=== PATIENT | female | born 1995 | race Caucasian/White ===

== ENCOUNTER 2017-07-14 06:26 | Emergency (ER) | payer SELFPAY ==
--- OUTSIDE RECORDS SUMMARY | 2017-07-14 06:28 | XMS REPORT | Clinical Summary ---
:1995 Author Organization [facility] Address [address] [place] [address] Phone Care Team Providers Name Role Phone Unavailable Primary Care Provider Unavailable Allergies Active Allergy Reactions Severity Noted Date Comments Acetaminophen-Calcium Carbonat Swelling High 08/27/2016 Hands Cinnamon Analogues Swelling High 08/27/2016 Throat Apple Cider Vinegar Rash Low 08/27/2016 Apple Current Medications Prescription Sig. Disp. Refills Start Date End Date Status ondansetron (ZOFRAN) 4 Take 1 tablet 30 tablet 1 08/31/2016 09/07/2016 MG tablet (4 mg total) by mouth 2 (two) times daily as needed for Nausea for up to 7 days. Active Problems Problem Noted Date Choledocholithiasis 08/27/2016 Encounters Date Type Specialty Care Team Description 08/29/2016 Anesthesia Event Gastroenterology Arya Canseco MD 08/29/2016 Procedure Pass Gastroenterology 08/29/2016 Surgery Gastroenterology Kriss Tariq PROCEDURE W/ C-OZZY Pedraza MD 08/27/2016 [facility] General Internal Vannessa Summers - Encounter Medicine MD Edu 08/31/2016 after 07/13/2016 Social History Tobacco Use Types Packs/Day Years Used Date Never Smoker Sex Assigned at Date Recorded Not on file Last Filed Vital Signs Vital Sign Reading Time Taken Blood Pressure 115/65 08/31/2016 7:55 AM CDT Pulse 63 08/31/2016 7:55 AM CDT Temperature 35.6 C (96.1 F) 08/31/2016 7:55 AM CDT Respiratory Rate 18 08/31/2016 7:55 AM CDT Oxygen Saturation 97% 08/31/2016 7:55 AM CDT Inhaled Oxygen Concentration - - Weight 62.2 kg (137 lb 1.6 oz) 08/27/2016 4:52 AM CDT Height 157.5 cm (5' 2") 08/27/2016 4:52 AM CDT Body Mass Index 25.08 08/27/2016 4:52 AM CDT Plan of Treatment Not on file Procedures Procedure Name Priority Date/Time Associated Diagnosis Comments ERCP,BALLOON SWEEPING 08/29/2016 5:00 PM ABNORMAL LIVER ENZYMES CDT Case Notes ERCP WITH ANES AND FLUORO Special Needs ERCP WITH ANES AND FLUORO ERCP,PAPILLOTOMY 08/29/2016 5:00 PM CDT ABNORMAL LIVER ENZYMES Case Notes ERCP WITH ANES AND FLUORO Special Needs ERCP WITH ANES AND FLUORO PROCEDURE W/ C-ARM 08/29/2016 5:00 PM CDT ABNORMAL LIVER ENZYMES Case Notes ERCP WITH ANES AND FLUORO Special Needs ERCP WITH ANES AND FLUORO after 07/13/2016 Results EKG-SCANNED (09/01/2016 2:50 PM)CBC with platelet count + automated diff (08/31 4:27 AM)Only the most recent of5 resultswithin the time period is included. Component Value Ref Range WBC 8.4 4.0 - 10.0 K/L RBC 4.76 4.00 - 5.00 M/L Hemoglobin 14.0 12.0 - 15.0 GM/DL Hematocrit 43.3 36.0 - 45.0 % MCV 91.0 82.0 - 99.0 fL MCH 29.5 27.0 - 33.0 pg MCHC 32.4 32.0 - 36.0 GM/DL RDW 11.5 10.3 - 14.2 % Platelets 215 150 - 430 K/CU MM MPV 7.7 6.5 - 10.5 fL nRBC 0 0 - 0 /100 WBC % Neutros 48 % % Lymphs 35 % % Monos 9 % % Eos 7 % % Baso 1 % # Neutros 4.02 1.80 - 8.00 K/L # Lymphs 2.96 1.48 - 4.50 K/L # Monos 0.78 0.00 - 1.30 K/L # Eos 0.58 (H) 0.00 - 0.50 K/L # Baso 0.04 0.00 - 0.20 K/L Specimen Performing Laboratory Blood [facility] [address] [address] Narrative 0.00 CBC with platelet count + automated diff (08/31/2016 4:27 AM)Only the most recent of5 resultswithin the time period is included. Specimen Performing Laboratory Blood Narrative The following orders were created for panel order CBC with platelet count + automated diff. Procedure Abnormality Status --------- ------ CBC with platelet count ...[[id number]]AbnormalFinal result Please view results for these tests on the individual orders. Hepatic function panel (08/31/2016 4:27 AM)Only the most recent of5 resultswithin the time period is included. Component Value Ref Range Protein, Total 7.6 6.0 - 8.3 gm/dL Albumin 4.4 3.5 - 5.0 g/dL Total Bilirubin 1.1 0.2 - 1.2 mg/dL Bilirubin, Direct 0.5 0.1 - 0.5 mg/dL Alkaline Phosphatase 115 40 - 150 U/L AST 34 5 - 34 U/L ALT 151 (H) 6 - 55 U/L Specimen Performing Laboratory Blood [address] [address] Basic metabolic panel (08/31/2016 4:27 AM)Only the most recent of5 resultswithin the time period is included. Component Value Ref Range Sodium 139 136 - 145 meq/L Potassium 3.5 3.5 - 5.1 meq/L Chloride 107 98 - 107 meq/L CO2 17 (L) 22 - 29 meq/L BUN 5 (L) 7 - 21 mg/dL Creatinine 0.65 0.57 - 1.25 mg/dL Glucose 72 70 - 105 mg/dL Calcium 9.1 8.4 - 10.2 mg/dL EGFR 119Comment: ESTIMATED GFR IS NOT ACCURATE mL/min/1.73 sq m CREATININE CLEARANCE IN PREDICTING GLOMERULAR FILTRATION RATE. ESTIMATED GFR IS NOT APPLICABLE FOR DIALYSIS PATIENTS. Specimen Performing Laboratory Blood [address] [address] [place] ERCP (08/29/2016 7:05 PM) Specimen Performing Laboratory GE RIS Narrative PROCEDURE PERFORMED IN O.R. - PLEASE REFER TO THE INTRAOPERATIVE REPORT. Procedure Note Interface, External Ris In - 09/09/2016 4:56 PM CDT PROCEDURE PERFORMED IN O.R. - PLEASE REFER TO THE INTRAOPERATIVE REPORT. RT OF PROCEDURE - ENDOSCOPY URL (08/29/2016 6:58 PM) Screen, urine (08/29/2016 10:09 AM) Component Value Ref Range Preg Test, Ur Negative Specimen Performing Laboratory Urine - Urine, Clean Catch [facility] [address] [address] MR abdomen without IV contrast MRCP (08/27/2016 11:58 PM) Specimen Performing Laboratory GE RIS Narrative FINAL REPORT MRCP, 08/27/2016 Clinical History: Acute abdominal pain, status post cholecystectomy Technique: Multiplanar and multisequence MR images of the biliary system are obtained, with dedicated MRCP protocol and images. No intravenous contrast is administered. In addition, 3 dimensional reformatted images of the biliary system are obtained. Comparison: None Discussion: This examination is not dedicated to evaluating masses or parenchymal abnormalities of the abdominal organs. The gallbladder is absent. The common hepatic duct and common bile duct are dilated to 11 mm. The right and left intrahepatic bile ducts are prominent, but the peripheral ducts are normal in caliber. There is no intraductal filling defect to suggest retained stone. The cystic duct remnant has an expected postoperative appearance. The right hepatic margin is 18 cm in craniocaudal dimension, prominent. The spleen, adrenal glands, pancreas, kidneys, stomach, visualized large and small bowel, visualized mesentery and visualized vasculature are unremarkable. The lung bases are clear. The visualized skeleton is without acute abnormality. Impression: Status post cholecystectomy. The central intrahepatic bile ducts and extrahepatic bile ducts are prominent in caliber. There is no choledocholithiasis. An ampullary stricture could be present. Correlation with LFTs is recommended. ERCP can be performed, if indicated. Mild hepatomegaly. Signed: Chica Johnson MD Report Verified Date/Time:08/28/2016 00:43:17 Reading Location: [address] Reading Room Procedure Note Interface, External Ris In - 08/28/2016 12:45 AM CDT FINAL REPORT MRCP, 08/27/2016 Clinical History: Acute abdominal pain, status post cholecystectomy Technique: Multiplanar and multisequence MR images of the biliary system are obtained, with dedicated MRCP protocol and images. No intravenous contrast is administered. In addition, 3 dimensional reformatted images of the biliary system are obtained. Comparison: None Discussion: This examination is not dedicated to evaluating masses or parenchymal abnormalities of the abdominal organs. The gallbladder is absent. The common hepatic duct and common bile duct are dilated to 11 mm. The right and left intrahepatic bile ducts are prominent, but the peripheral ducts are normal in caliber. There is no intraductal filling defect to suggest retained stone. The cystic duct remnant has an expected postoperative appearance. The right hepatic margin is 18 cm in craniocaudal dimension, prominent. The spleen, adrenal glands, pancreas, kidneys, stomach, visualized large and small bowel, visualized mesentery and visualized vasculature are unremarkable. The lung bases are clear. The visualized skeleton is without acute abnormality. Impression: Status post cholecystectomy. The central intrahepatic bile ducts and extrahepatic bile ducts are prominent in caliber. There is no choledocholithiasis. An ampullary stricture could be present. Correlation with LFTs is recommended. ERCP can be performed, if indicated. Mild hepatomegaly. Signed: Chica Johnson MD Report Verified Date/Time: 08/28/2016 00:43:17 Reading Location: [address] Reading Room hepatobiliary (HIDA) scan (08/27/2016 8:36 PM) Specimen Performing Laboratory [employer] Impressions : 1. Bile reflux into the stomach. 2. Otherwise normal postcholecystectomy hepatobiliary scan. No evidence of bile leakage or biliary obstruction. Signed: Terry Mancera MD Report Verified Date/Time:08/27/2016 20:43:51 Narrative FINAL REPORT PROCEDURE: HEPATOBILIARY SCAN CPT CODE: [id number] INDICATION: vomiting, nausea, dizziness, rule out bile leak PROTOCOL: 5.2 mCi of Tc-99m mebrofenin was injected intravenously. Images of the upper abdomen were obtained for approximately 90 minutes after tracer injection. FINDINGS:Initial tracer uptake into the liver is physiological. Subsequent tracer clearance from the liver proceeds normally. There is good visualization of the extrahepatic biliary duct, and the tracer appears appropriately in the small bowel. The gallbladder is not seen. Activity appears in the stomach midway through the study. Procedure Note Interface, External Ris In - 08/27/2016 8:46 PM CDT FINAL REPORT PROCEDURE: HEPATOBILIARY SCAN CPT CODE: [id number] INDICATION: vomiting, nausea, dizziness, rule out bile leak PROTOCOL: 5.2 mCi of Tc-99m mebrofenin was injected intravenously. Images of the upper abdomen were obtained for approximately 90 minutes after tracer injection. FINDINGS: Initial tracer uptake into the liver is physiological. Subsequent tracer clearance from the liver proceeds normally. There is good visualization of the extrahepatic biliary duct, and the tracer appears appropriately in the small bowel. The gallbladder is not seen. Activity appears in the stomach midway through the study. IMPRESSION : 1. Bile reflux into the stomach. 2. Otherwise normal postcholecystectomy hepatobiliary scan. No evidence of bile leakage or biliary obstruction. Signed: Terry Mancera MD Report Verified Date/Time: 08/27/2016 20:43:51 /aPTT (08/27/2016 6:04 AM) Component Value Ref Range Protime 15.3 (H) 11.7 - 14.7 seconds INR 1.2 <=5.9 PTT 32.9 22.5 - 36.0 seconds Specimen Performing Laboratory Blood - Arm, [address] [address] Narrative RECOMMENDED COUMADIN/WARFARIN INR THERAPY RANGES STANDARD DOSE: 2.0 - 3.0 Includes: PROPHYLAXIS for venous thrombosis, systemic embolization; TREATMENT for venous thrombosis and/or pulmonary embolus. HIGH RISK: Target INR is 2.5-3.5 for patients with mechanical heart valves. Lipase (08/27/2016 6:04 AM) Component Value Ref Range Lipase 8 8 - 78 U/L Specimen Performing Laboratory Blood - Arm, [address] [address] Amylase (08/27/2016 6:04 AM) Component Value Ref Range Amylase 44 25 - 125 U/L Specimen Performing Laboratory Blood - Arm, [address] [address] after 07/13/2016
--- OUTSIDE RECORDS SUMMARY | 2017-07-14 06:29 | XMS REPORT ---
:1995 [facility] Address [address] [place] [id number] Care Team Providers Name Role Phone EFRAIN LEYVA Unavailable Unavailable Problems This patient has no known problems. Allergies, Adverse Reactions, Alerts This patient has no known allergies or adverse reactions. Medications This patient has no known medications. Results Test Description Test Time Test Comments Text Results Atomic Results Result Comments CBC W/PLT COUNT & AUTO DIFFERENTIAL 2016-08-31 06:31:00 Test Item Value Reference Range Comments WHITE BLOOD CELL COUNT (BEAKER) (test hxxk=959) 8.4 K/ L 4.0-10.0 RED BLOOD CELL COUNT (BEAKER) (test ahrh=831) 4.76 M/ L 4.00-5.00 HEMOGLOBIN (BEAKER) (test dbsd=727) 14.0 GM/DL 12.0-15.0 HEMATOCRIT (BEAKER) (test rfrk=487) 43.3 % 36.0-45.0 MEAN CORPUSCULAR VOLUME (BEAKER) (test cchs=334) 91.0 fL 82.0-99.0 MEAN CORPUSCULAR HEMOGLOBIN (BEAKER) (test jqsp=257) 29.5 pg 27.0-33.0 MEAN CORPUSCULAR HEMOGLOBIN CONC (BEAKER) (test djrk=597) 32.4 GM/DL 32.0- 36.0 RED CELL DISTRIBUTION WIDTH (BEAKER) (test cvob=625) 11.5 % 10.3-14.2 PLATELET COUNT (BEAKER) (test dkjm=340) 215 K/CU MM 150-430 MEAN PLATELET VOLUME (BEAKER) (test xeij=674) 7.7 fL 6.5-10.5 NUCLEATED RED BLOOD CELLS (BEAKER) (test udad=554) 0 /100 WBC 0-0 NEUTROPHILS RELATIVE PERCENT (BEAKER) (test cobp=984) 48 % LYMPHOCYTES RELATIVE PERCENT (BEAKER) (test vyjq=887) 35 % MONOCYTES RELATIVE PERCENT (BEAKER) (test airi=296) 9 % EOSINOPHILS RELATIVE PERCENT (BEAKER) (test iehl=461) 7 % BASOPHILS RELATIVE PERCENT (BEAKER) (test cndw=042) 1 % NEUTROPHILS ABSOLUTE COUNT (BEAKER) (test pzgt=019) 4.02 K/ L 1.80-8.00 LYMPHOCYTES ABSOLUTE COUNT (BEAKER) (test effo=875) 2.96 K/ L 1.48-4.50 MONOCYTES ABSOLUTE COUNT (BEAKER) (test kdpr=734) 0.78 K/ L 0.00-1.30 EOSINOPHILS ABSOLUTE COUNT (BEAKER) (test qqzf=299) 0.58 K/ L 0.00-0.50 BASOPHILS ABSOLUTE COUNT (BEAKER) (test gkex=789) 0.04 K/ L 0.00-0.20 0.00HEPATIC FUNCTION [id number] 06:03:00 Test Item Value Reference Range Comments TOTAL PROTEIN (BEAKER) (test pono=027) 7.6 gm/dL 6.0-8.3 ALBUMIN (BEAKER) (test zfuw=5792) 4.4 g/dL 3.5-5.0 BILIRUBIN TOTAL (BEAKER) (test gtrm=752) 1.1 mg/dL 0.2-1.2 BILIRUBIN DIRECT (BEAKER) (test uork=097) 0.5 mg/dL 0.1-0.5 ALKALINE PHOSPHATASE (BEAKER) (test fxgx=719) 115 U/L 40-150 AST (SGOT) (BEAKER) (test ataj=103) 34 U/L 5-34 ALT (SGPT) (BEAKER) (test ytpg=564) 151 U/L 6-55 BASIC METABOLIC [id number] 06:03:00 Test Item Value Reference Range Comments SODIUM (BEAKER) (test 139 meq/L 136-145 ckyb=028) POTASSIUM (BEAKER) (test 3.5 meq/L 3.5-5.1 yjis=824) CHLORIDE (BEAKER) (test 107 meq/L 98-107 ywda=795) CO2 (BEAKER) (test 17 meq/L 22-29 kbvx=059) BLOOD UREA NITROGEN 5 mg/dL 7-21 (BEAKER) (test wupi=591) CREATININE (BEAKER) (test 0.65 mg/dL 0.57-1.25 tkpc=621) GLUCOSE RANDOM (BEAKER) 72 mg/dL 70-105 (test gnfh=657) CALCIUM (BEAKER) (test 9.1 mg/dL 8.4-10.2 dfmu=047) EGFR (BEAKER) (test 119 mL/min/1.73 sq m ESTIMATED GFR IS NOT jcmw=7494) ACCURATE CREATININE CLEARANCE IN PREDICTING GLOMERULAR FILTRATION RATE. ESTIMATED GFR IS NOT APPLICABLE FOR DIALYSIS PATIENTS. CBC W/PLT COUNT & AUTO [id number] 08:15:00 Test Item Value Reference Range Comments WHITE BLOOD CELL COUNT (BEAKER) (test aice=360) 9.0 K/ L 4.0-10.0 RED BLOOD CELL COUNT (BEAKER) (test kuje=678) 4.58 M/ L 4.00-5.00 HEMOGLOBIN (BEAKER) (test xdvg=154) 14.1 GM/DL 12.0-15.0 HEMATOCRIT (BEAKER) (test syaf=143) 42.1 % 36.0-45.0 MEAN CORPUSCULAR VOLUME (BEAKER) (test ctzi=201) 92.0 fL 82.0-99.0 MEAN CORPUSCULAR HEMOGLOBIN (BEAKER) (test 30.8 pg 27.0-33.0 utly=814) MEAN CORPUSCULAR HEMOGLOBIN CONC (BEAKER) (test 33.5 GM/DL 32.0-36.0 tbww=204) RED CELL DISTRIBUTION WIDTH (BEAKER) (test 11.3 % 10.3-14.2 wfaz=584) PLATELET COUNT (BEAKER) (test hqri=793) 181 K/CU MM 150-430 MEAN PLATELET VOLUME (BEAKER) (test taak=710) 7.8 fL 6.5-10.5 NUCLEATED RED BLOOD CELLS (BEAKER) (test 0 /100 WBC 0-0 sgyt=781) NEUTROPHILS RELATIVE PERCENT (BEAKER) (test 69 % rbid=475) LYMPHOCYTES RELATIVE PERCENT (BEAKER) (test 21 % tlyu=844) MONOCYTES RELATIVE PERCENT (BEAKER) (test 7 % uwvp=001) EOSINOPHILS RELATIVE PERCENT (BEAKER) (test 3 % zivb=801) BASOPHILS RELATIVE PERCENT (BEAKER) (test 1 % kpsz=885) NEUTROPHILS ABSOLUTE COUNT (BEAKER) (test 6.24 K/ L 1.80-8.00 pogz=827) LYMPHOCYTES ABSOLUTE COUNT (BEAKER) (test 1.85 K/ L 1.48-4.50 cgso=093) MONOCYTES ABSOLUTE COUNT (BEAKER) (test 0.67 K/ L 0.00-1.30 jfgo=902) EOSINOPHILS ABSOLUTE COUNT (BEAKER) (test 0.23 K/ L 0.00-0.50 rdyw=695) BASOPHILS ABSOLUTE COUNT (BEAKER) (test 0.05 K/ L 0.00-0.20 ayoz=211) 0.00HEPATIC FUNCTION [id number] 06:43:00 Test Item Value Reference Range Comments TOTAL PROTEIN (BEAKER) (test tpkx=850) 7.0 gm/dL 6.0-8.3 ALBUMIN (BEAKER) (test pddk=4913) 4.1 g/dL 3.5-5.0 BILIRUBIN TOTAL (BEAKER) (test gffj=897) 1.2 mg/dL 0.2-1.2 BILIRUBIN DIRECT (BEAKER) (test rbvi=883) 0.5 mg/dL 0.1-0.5 ALKALINE PHOSPHATASE (BEAKER) (test upff=145) 119 U/L 40-150 AST (SGOT) (BEAKER) (test imio=445) 50 U/L 5-34 ALT (SGPT) (BEAKER) (test poco=515) 189 U/L 6-55 BASIC METABOLIC [id number] 06:43:00 Test Item Value Reference Range Comments SODIUM (BEAKER) (test 137 meq/L 136-145 ukzr=707) POTASSIUM (BEAKER) (test 4.1 meq/L 3.5-5.1 mqcq=705) CHLORIDE (BEAKER) (test 109 meq/L 98-107 iyah=640) CO2 (BEAKER) (test 14 meq/L 22-29 cvzt=792) BLOOD UREA NITROGEN 5 mg/dL 7-21 (BEAKER) (test nntc=985) CREATININE (BEAKER) (test 0.63 mg/dL 0.57-1.25 trgn=840) GLUCOSE RANDOM (BEAKER) 64 mg/dL 70-105 (test hwlj=462) CALCIUM (BEAKER) (test 8.8 mg/dL 8.4-10.2 elrx=780) EGFR (BEAKER) (test 123 mL/min/1.73 sq m ESTIMATED GFR IS NOT jnrp=6419) ACCURATE CREATININE CLEARANCE IN PREDICTING GLOMERULAR FILTRATION RATE. ESTIMATED GFR IS NOT APPLICABLE FOR DIALYSIS PATIENTS. SCREEN, [id number] 10:31:00 Test Item Value Reference Range Comments TEST URINE (BEAKER) (test zthv=845) Negative CBC W/PLT COUNT & AUTO [id number] 06:59:00 Test Item Value Reference Range Comments WHITE BLOOD CELL COUNT (BEAKER) (test sxnb=899) 7.0 K/ L 4.0-10.0 RED BLOOD CELL COUNT (BEAKER) (test ohro=546) 4.35 M/ L 4.00-5.00 HEMOGLOBIN (BEAKER) (test ldhd=037) 13.4 GM/DL 12.0-15.0 HEMATOCRIT (BEAKER) (test tent=953) 40.4 % 36.0-45.0 MEAN CORPUSCULAR VOLUME (BEAKER) (test pcpg=916) 92.8 fL 82.0-99.0 MEAN CORPUSCULAR HEMOGLOBIN (BEAKER) (test 30.9 pg 27.0-33.0 zjhl=393) MEAN CORPUSCULAR HEMOGLOBIN CONC (BEAKER) (test 33.3 GM/DL 32.0-36.0 yewm=925) RED CELL DISTRIBUTION WIDTH (BEAKER) (test 11.4 % 10.3-14.2 ldce=352) PLATELET COUNT (BEAKER) (test omwn=172) 160 K/CU MM 150-430 MEAN PLATELET VOLUME (BEAKER) (test llju=246) 8.0 fL 6.5-10.5 NUCLEATED RED BLOOD CELLS (BEAKER) (test 0 /100 WBC 0-0 yicp=163) NEUTROPHILS RELATIVE PERCENT (BEAKER) (test 53 % leyq=282) LYMPHOCYTES RELATIVE PERCENT (BEAKER) (test 36 % pfbm=584) MONOCYTES RELATIVE PERCENT (BEAKER) (test 7 % ygkc=049) EOSINOPHILS RELATIVE PERCENT (BEAKER) (test 4 % wkvv=409) BASOPHILS RELATIVE PERCENT (BEAKER) (test 1 % njsa=032) NEUTROPHILS ABSOLUTE COUNT (BEAKER) (test 3.69 K/ L 1.80-8.00 jbhg=667) LYMPHOCYTES ABSOLUTE COUNT (BEAKER) (test 2.51 K/ L 1.48-4.50 gybc=267) MONOCYTES ABSOLUTE COUNT (BEAKER) (test 0.47 K/ L 0.00-1.30 etwc=668) EOSINOPHILS ABSOLUTE COUNT (BEAKER) (test 0.26 K/ L 0.00-0.50 otuo=419) BASOPHILS ABSOLUTE COUNT (BEAKER) (test 0.05 K/ L 0.00-0.20 mcfw=567) 0.00HEPATIC FUNCTION [id number] 06:29:00 Test Item Value Reference Range Comments TOTAL PROTEIN (BEAKER) (test rtpc=927) 6.6 gm/dL 6.0-8.3 ALBUMIN (BEAKER) (test xqmf=3309) 4.0 g/dL 3.5-5.0 BILIRUBIN TOTAL (BEAKER) (test hqiu=418) 1.0 mg/dL 0.2-1.2 BILIRUBIN DIRECT (BEAKER) (test xgcd=856) 0.5 mg/dL 0.1-0.5 ALKALINE PHOSPHATASE (BEAKER) (test jqsq=032) 101 U/L 40-150 AST (SGOT) (BEAKER) (test rgwt=965) 51 U/L 5-34 ALT (SGPT) (BEAKER) (test rozv=257) 210 U/L 6-55 BASIC METABOLIC [id number] 06:29:00 Test Item Value Reference Range Comments SODIUM (BEAKER) (test 139 meq/L 136-145 hlsy=817) POTASSIUM (BEAKER) (test 3.7 meq/L 3.5-5.1 mixa=408) CHLORIDE (BEAKER) (test 107 meq/L 98-107 jlvr=317) CO2 (BEAKER) (test 21 meq/L 22-29 zyaw=481) BLOOD UREA NITROGEN 4 mg/dL 7-21 (BEAKER) (test ngzm=645) CREATININE (BEAKER) (test 0.62 mg/dL 0.57-1.25 qrbq=428) GLUCOSE RANDOM (BEAKER) 64 mg/dL 70-105 (test ioin=378) CALCIUM (BEAKER) (test 8.7 mg/dL 8.4-10.2 tiee=659) EGFR (BEAKER) (test 125 mL/min/1.73 sq m ESTIMATED GFR IS NOT wfoy=0594) ACCURATE CREATININE CLEARANCE IN PREDICTING GLOMERULAR FILTRATION RATE. ESTIMATED GFR IS NOT APPLICABLE FOR DIALYSIS PATIENTS. HEPATIC FUNCTION [id number] 05:02:00 Test Item Value Reference Range Comments TOTAL PROTEIN (BEAKER) (test tvug=809) 6.0 gm/dL 6.0-8.3 ALBUMIN (BEAKER) (test smgk=9234) 3.5 g/dL 3.5-5.0 BILIRUBIN TOTAL (BEAKER) (test wuru=379) 0.9 mg/dL 0.2-1.2 BILIRUBIN DIRECT (BEAKER) (test pwyj=432) 0.4 mg/dL 0.1-0.5 ALKALINE PHOSPHATASE (BEAKER) (test qgcd=230) 100 U/L 40-150 AST (SGOT) (BEAKER) (test hrud=654) 73 U/L 5-34 ALT (SGPT) (BEAKER) (test vmml=028) 250 U/L 6-55 BASIC METABOLIC [id number] 05:02:00 Test Item Value Reference Range Comments SODIUM (BEAKER) (test 140 meq/L 136-145 awdb=161) POTASSIUM (BEAKER) (test 3.8 meq/L 3.5-5.1 tvpp=054) CHLORIDE (BEAKER) (test 110 meq/L 98-107 bnao=640) CO2 (BEAKER) (test 22 meq/L 22-29 kbho=353) BLOOD UREA NITROGEN 4 mg/dL 7-21 (BEAKER) (test ldfw=997) CREATININE (BEAKER) (test 0.62 mg/dL 0.57-1.25 afso=453) GLUCOSE RANDOM (BEAKER) 75 mg/dL 70-105 (test ucvm=560) CALCIUM (BEAKER) (test 8.4 mg/dL 8.4-10.2 gruh=387) EGFR (BEAKER) (test 125 mL/min/1.73 sq m ESTIMATED GFR IS NOT orte=0020) ACCURATE CREATININE CLEARANCE IN PREDICTING GLOMERULAR FILTRATION RATE. ESTIMATED GFR IS NOT APPLICABLE FOR DIALYSIS PATIENTS. CBC W/PLT COUNT & AUTO [id number] 04:37:00 Test Item Value Reference Range Comments WHITE BLOOD CELL COUNT (BEAKER) (test ctox=101) 7.1 K/ L 4.0-10.0 RED BLOOD CELL COUNT (BEAKER) (test iigm=854) 3.94 M/ L 4.00-5.00 HEMOGLOBIN (BEAKER) (test cpxr=348) 12.1 GM/DL 12.0-15.0 HEMATOCRIT (BEAKER) (test fyue=275) 36.2 % 36.0-45.0 MEAN CORPUSCULAR VOLUME (BEAKER) (test lors=549) 91.8 fL 82.0-99.0 MEAN CORPUSCULAR HEMOGLOBIN (BEAKER) (test 30.8 pg 27.0-33.0 azlq=768) MEAN CORPUSCULAR HEMOGLOBIN CONC (BEAKER) (test 33.5 GM/DL 32.0-36.0 hijq=129) RED CELL DISTRIBUTION WIDTH (BEAKER) (test 12.1 % 10.3-14.2 wixg=780) PLATELET COUNT (BEAKER) (test qzld=857) 157 K/CU MM 150-430 MEAN PLATELET VOLUME (BEAKER) (test hvcn=778) 7.8 fL 6.5-10.5 NUCLEATED RED BLOOD CELLS (BEAKER) (test 0 /100 WBC 0-0 mgjo=547) NEUTROPHILS RELATIVE PERCENT (BEAKER) (test 53 % mqvl=605) LYMPHOCYTES RELATIVE PERCENT (BEAKER) (test 36 % dsgy=378) MONOCYTES RELATIVE PERCENT (BEAKER) (test 6 % qxbb=526) EOSINOPHILS RELATIVE PERCENT (BEAKER) (test 4 % yitu=685) BASOPHILS RELATIVE PERCENT (BEAKER) (test 1 % rbve=961) NEUTROPHILS ABSOLUTE COUNT (BEAKER) (test 3.75 K/ L 1.80-8.00 efcu=926) LYMPHOCYTES ABSOLUTE COUNT (BEAKER) (test 2.54 K/ L 1.48-4.50 axyy=232) MONOCYTES ABSOLUTE COUNT (BEAKER) (test 0.44 K/ L 0.00-1.30 shuv=271) EOSINOPHILS ABSOLUTE COUNT (BEAKER) (test 0.27 K/ L 0.00-0.50 hbtp=080) BASOPHILS ABSOLUTE COUNT (BEAKER) (test 0.05 K/ L 0.00-0.20 zivk=331) [id number] 07:40:00 Test Item Value Reference Range Comments LIPASE (BEAKER) (test tsrc=203) 8 U/L 8-78 [id number] 07:40:00 Test Item Value Reference Range Comments AMYLASE (BEAKER) (test cvrm=502) 44 U/L 25-125 BASIC METABOLIC [id number] 07:40:00 Test Item Value Reference Range Comments SODIUM (BEAKER) (test 140 meq/L 136-145 dokz=332) POTASSIUM (BEAKER) (test 3.8 meq/L 3.5-5.1 eoeb=411) CHLORIDE (BEAKER) (test 109 meq/L 98-107 tqnq=118) CO2 (BEAKER) (test 22 meq/L 22-29 jjmi=336) BLOOD UREA NITROGEN 4 mg/dL 7-21 (BEAKER) (test pukr=544) CREATININE (BEAKER) (test 0.63 mg/dL 0.57-1.25 bhha=165) GLUCOSE RANDOM (BEAKER) 94 mg/dL 70-105 (test viuf=462) CALCIUM (BEAKER) (test 8.4 mg/dL 8.4-10.2 fcfl=058) EGFR (BEAKER) (test 123 mL/min/1.73 sq m ESTIMATED GFR IS NOT exfw=7882) ACCURATE CREATININE CLEARANCE IN PREDICTING GLOMERULAR FILTRATION RATE. ESTIMATED GFR IS NOT APPLICABLE FOR DIALYSIS PATIENTS. HEPATIC FUNCTION [id number] 07:40:00 Test Item Value Reference Range Comments TOTAL PROTEIN (BEAKER) (test iaus=368) 6.2 gm/dL 6.0-8.3 ALBUMIN (BEAKER) (test hxlp=3283) 3.7 g/dL 3.5-5.0 BILIRUBIN TOTAL (BEAKER) (test yjgf=967) 0.7 mg/dL 0.2-1.2 BILIRUBIN DIRECT (BEAKER) (test suea=678) 0.3 mg/dL 0.1-0.5 ALKALINE PHOSPHATASE (BEAKER) (test ikzy=695) 106 U/L 40-150 AST (SGOT) (BEAKER) (test hcnx=874) 81 U/L 5-34 ALT (SGPT) (BEAKER) (test xoqn=674) 309 U/L 6-55 CBC W/PLT COUNT & AUTO [id number] 06:56:00 Test Item Value Reference Range Comments WHITE BLOOD CELL COUNT (BEAKER) (test ovdq=416) 7.3 K/ L 4.0-10.0 RED BLOOD CELL COUNT (BEAKER) (test oqiv=816) 3.89 M/ L 4.00-5.00 HEMOGLOBIN (BEAKER) (test oppa=643) 12.3 GM/DL 12.0-15.0 HEMATOCRIT (BEAKER) (test hstm=651) 36.0 % 36.0-45.0 MEAN CORPUSCULAR VOLUME (BEAKER) (test ecil=188) 92.4 fL 82.0-99.0 MEAN CORPUSCULAR HEMOGLOBIN (BEAKER) (test 31.5 pg 27.0-33.0 mpld=484) MEAN CORPUSCULAR HEMOGLOBIN CONC (BEAKER) (test 34.1 GM/DL 32.0-36.0 iznq=003) RED CELL DISTRIBUTION WIDTH (BEAKER) (test 12.5 % 10.3-14.2 lgtp=814) PLATELET COUNT (BEAKER) (test omnf=658) 163 K/CU MM 150-430 MEAN PLATELET VOLUME (BEAKER) (test nbwy=138) 7.9 fL 6.5-10.5 NUCLEATED RED BLOOD CELLS (BEAKER) (test 0 /100 WBC 0-0 trof=625) NEUTROPHILS RELATIVE PERCENT (BEAKER) (test 56 % wvth=838) LYMPHOCYTES RELATIVE PERCENT (BEAKER) (test 33 % cebr=369) MONOCYTES RELATIVE PERCENT (BEAKER) (test 8 % vgmt=810) EOSINOPHILS RELATIVE PERCENT (BEAKER) (test 3 % npdm=993) BASOPHILS RELATIVE PERCENT (BEAKER) (test 1 % ecuy=135) NEUTROPHILS ABSOLUTE COUNT (BEAKER) (test 4.11 K/ L 1.80-8.00 getu=459) LYMPHOCYTES ABSOLUTE COUNT (BEAKER) (test 2.39 K/ L 1.48-4.50 sjxp=110) MONOCYTES ABSOLUTE COUNT (BEAKER) (test 0.57 K/ L 0.00-1.30 anze=989) EOSINOPHILS ABSOLUTE COUNT (BEAKER) (test 0.19 K/ L 0.00-0.50 vzki=682) BASOPHILS ABSOLUTE COUNT (BEAKER) (test 0.05 K/ L 0.00-0.20 cezj=232) [id number] 06:46:00 Test Item Value Reference Range Comments PROTIME (BEAKER) (test qfse=010) 15.3 seconds 11.7-14.7 INR (BEAKER) (test mije=339) 1.2 <=5.9 PARTIAL THROMBOPLASTIN TIME (BEAKER) (test 32.9 seconds 22.5-36.0 ggof=659) RECOMMENDED COUMADIN/WARFARIN INR THERAPY RANGESSTANDARD DOSE: 2.0 - 3.0 Includes: PROPHYLAXIS forvenous thrombosis, systemic embolization; TREATMENT for venous thrombosis and/or pulmonary embolus.HIGH RISK: Target INR is 2.5-3.5 for patients with mechanical heart valves.
[2017-07-14 07:38] LABS: Absolute Lymphocytes (CBC) 2.7 K/uL (0.7-4.9); Absolute Monocytes 0.5 K/uL (0.1-1.3); Absolute Neutrophil 4.7 K/uL (1.8-8.0); Eosinophils % 2.8 % (0-4.4); Hematocrit 45.5 % (36.0-45.0); Lymphocytes % 32.4 % (15.3-44.8); MCH 29.7 pg (27.0-35.0); MCV 88.9 fL (80-100); MPV 8.4 fL (7.6-11.3); Monocytes % 5.7 % (3.3-12.3); RBC Red Blood Cell Count 5.12 M/uL (3.86-4.86)
[2017-07-14 07:49] LABS: Bicarbonate 22 mEq/L (21-31); Glucose Level 99 mg/dL (65-120); Potassium 3.8 mEq/L (3.6-5.0); Sodium Level 136 mEq/L (135-145)
[2017-07-14 07:53] LABS: Protime INR 1.11
[2017-07-14 07:55] LABS: ALT/SGPT 15 IU/L (10-60); AST/SGOT 20 IU/L (10-42); Albumin 4.7 g/dL (3.2-5.5); Alkaline Phosphatase 62 IU/L (42-121); BUN Blood Urea Nitrogen 11 mg/dL (6-20); Bilirubin Direct 0.1 mg/dL (0-0.2); Glomerular Filtration Rate > 90 mL/min (=/>90); Protein, Total 7.4 g/dL (6.0-8.3)
--- NOTE | 2017-07-14 08:00 | RAD REPORT ---
EXAM DESCRIPTION: CT - Head Brain Wo Cont - 07/14/2017 7:53 am CLINICAL HISTORY: Nausea, vomiting, dizziness, headache COMPARISON: None. TECHNIQUE: Axial 5 mm thick images of the head were obtained without IV contrast. All CT scans are performed using dose optimization technique as appropriate and may include automated exposure control or mA/KV adjustment according to patient size. FINDINGS: No intracranial hemorrhage, mass, edema or shift of mid-line structures. No acute infarcti on changes seen. No abnormal extra-axial fluid collections. Ventricles are normal. Mastoid air cells and visualized portions of the paranasal sinuses are clear. No acute bony findings. IMPRESSION: Negative non-contrast CT head examination.
[2017-07-14] MEDS ORDERED: NA CHLORIDE 0.9% 1,000 ML ONE (08:29)
[2017-07-14 08:52] LABS: Urine Blood NEGATIVE (NEG); Urine Glucose NEGATIVE (NEG); Urine Protein TRACE (NEG); Urine Specific Gravity 1.025 (1.005-1.030)
--- NOTE | 2017-07-14 09:47 | RAD REPORT ---
EXAM DESCRIPTION: RAD - Chest Single View - 07/14/2017 7:46 am CLINICAL HISTORY: Headache, syncope, abdominal pain COMPARISON: None. TECHNIQUE: AP portable chest image was obtained 0742 hours . FINDINGS: Lungs are clear. Heart and vasculature are normal. No measurable pleural effusion and no p neumothorax. No gross bony abnormality seen. No acute aortic findings suspected. IMPRESSION: No acute cardiopulmonary process.
--- NOTE | 2017-07-14 10:10 | ER ---
Nurse's Notes [facility] Name: Marcy Flores Age: 21 yrs Sex: Female : 1995 Arrival Date: 07/14/2017 Time: 06:30 Bed 14 Private MD: Dariusz Gonzalez W Diagnosis: Syncope and collapse;Headache;Unspecified abdominal pain Presentation: 07/14 06:35 Presenting complaint: Patient states: that on Mon she had nausea, vomiting and abd fc pain. Then on she was spaced, dizzy and passed out, waking up on the floor some time later. She has also had a headache this entire time. Transition of care: patient was not received from another setting of care. Onset of symptoms was July 12, 2017. Care prior to arrival: None. 06:35 Method Of Arrival: Ambulatory 06:35 Acuity: BIRDIE 3 fc Triage Assessment: 06:35 General: Appears uncomfortable, slender, Behavior is calm, cooperative, appropriate for age. Pain: Complains of pain in head Pain currently is 4 out of 10 on a pain scale. at worst was 8 out of 10 on a pain scale. Quality of pain is described as aching, throbbing, Pain began 2-3 days ago. Is continuous. EENT: No deficits noted. Neuro: Level of Consciousness is awake, alert, obeys commands, Oriented to person, place, time, situation, Orthodontist Vice President are equal bilaterally Moves all extremities. Full function Gait is steady, Speech is normal, Facial symmetry appears normal, Pupils are PERRLA, Reports dizziness, headache in entire a syncopal episode. Cardiovascular: No deficits noted. Respiratory: No deficits noted. GI: Abdomen is flat, Bowel sounds present X 4 quads. Abd is soft X 4 quads Abdomen is tender to palpation X 4 quads. Reports lower abdominal pain, upper abdominal pain, nausea, vomiting. : No deficits noted. Derm: Skin is pink, warm \\T\\ dry. Musculoskeletal: Circulation, motion, and sensation intact. Capillary refill < 3 seconds, Range of motion: intact in all extremities. 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 - Social history:: Smoking status: Patient/guardian denies using tobacco, Patient uses alcohol, occasionally. Patient/guardian denies using street drugs. Screenin:35 Abuse screen: Denies threats or abuse. Nutritional screening: No deficits noted. fc Tuberculosis screening: No symptoms or risk factors identified. Fall Risk Fall in past 12 months (25 points). No secondary diagnosis (0 pts). No IV (0 pts). Ambulatory Aid- None/Bed Rest/Nurse Assist (0 pts). Gait- Normal/Bed Rest/Wheelchair (0 pts) Mental Status- Overestimates/Forgets Limitations (15 pts.). Total Pritchard Fall Scale indicates Low Risk Score (25-44 pts). Fall prevention measures have been instituted. Side Rails Up X 2 Placed close to Nursing Station Frequent Obs/Assesments occuring As available Patient and Family Educated on Fall Prevention Program and strategies. Assessment: 06:55 Reassessment: No changes from previously documented assessment. Patient and/or family fc updated on plan of care and expected duration. Pain level reassessed. Patient is alert, oriented x 3, equal unlabored respirations, skin warm/dry/pink. see triage assessment. 07:32 General: Appears comfortable, Behavior is calm, cooperative. Pain: Complains of pain in ap3 occipital area Pain radiates to right temporal area and right side of forehead. Neuro: Level of Consciousness is awake, alert, obeys commands, Oriented to person, place, time, situation. Cardiovascular: Heart tones S1 S2 present. Respiratory: Airway is patent Respiratory effort is even, unlabored, Respiratory pattern is regular, symmetrical, Breath sounds are clear bilaterally. GI: Bowel sounds present X 4 quads. : No signs and/or symptoms were reported regarding the genitourinary system. EENT: wears glasses. Derm: Skin is pink, warm \\T\\ dry. Musculoskeletal: Reports patient states, "I just don't feel right.". 08:39 Reassessment: Patient is alert, oriented x 3, equal unlabored respirations, skin ap3 warm/dry/pink. Patient is sitting up in bed, no signs of distress. . 09:31 Reassessment: Patient ambulated to the restroom without difficulty. Is now resting in ap3 bed, side rails up X's one. Respirations even and unlabored with no concerns at this time. . Vital Signs: 06:35 BP 135 / 76; Pulse 68; Resp 18; Temp 98.0(O); Pulse Ox 99% on R/A; Weight 61.23 kg (R); fc Height 5 ft. 2 in. (157.48 cm) (R); Pain 4/10; 07:23 BP 113 / 65; Pulse 60; Resp 16; Pulse Ox 100% on R/A; ae1 07:50 BP 107 / 63 LA Supine; Pulse 62 MON; ap3 07:53 BP 113 / 82 LA Sitting; Pulse 65 MON; ap3 07:56 BP 106 / 80 LA Standing; Pulse 74 MON; ap3 09:32 BP 106 / 69; Pulse 91; Resp 16; Pulse Ox 100% on R/A; ap3 10:24 BP 105 / 67; Pulse 79; Pulse Ox 100% on R/A; ap3 06:35 Body Mass Index 24.69 (61.23 kg, 157.48 cm) fc ED Course: 06:30 Patient arrived in ED. es 06:31 Dariusz Gonzalez MD is Private Physician. es 06:35 Arm band placed on Patient placed in an exam room, on a stretcher. fc 06:35 Patient has correct armband on for positive identification. Placed in gown. Bed in low fc position. Call light in reach. Pulse ox on. NIBP on. 06:35 No provider procedures requiring assistance completed. fc 06:46 Erick Sorenson NP is PHCP. pm1 06:46 Siddhartha Harris MD is Attending Physician. pm1 06:51 Triage completed. fc 07:20 Flavio Maldonado RN is Primary Nurse. ae1 07:31 Inserted saline lock: 22 gauge in right antecubital area, using aseptic technique. ap3 Blood collected. 07:[address] via wheelchair. vr 07:43 X-ray completed. Portable x-ray completed in exam room. Patient tolerated procedure jb2 well. 07:46 XRAY Chest (1 view) In Process Unspecified. EDMS 07:46 Note: PT SHIELDED. ag1 07:53 CT Head Brain wo Cont In Process Unspecified. EDMS 10:08 Dariusz Gonzalez MD is Referral Physician. pm1 10:25 IV discontinued, intact, bleeding controlled, No redness/swelling at site. Pressure ap3 dressing applied. Administered Medications: 08:15 Drug: NS 0.9% 1000 ml Route: IV; Rate: 1000 ml; Site: left forearm; ae1 09:50 Follow up: IV Status: Completed infusion ae1 Outcome: 10:09 Discharge ordered by . pm1 10:24 Discharged to home ambulatory. ap3 10:24 Condition: stable 10:24 Discharge instructions given to patient, Instructed on discharge instructions, follow up and referral plans. medication usage, Demonstrated understanding of instructions, Prescriptions given X 2. 10:27 Attestation : I agree with the charting done by Laura Barclay, nursing unit coordinator. . ae1 10:28 Patient left the ED. ae1 Signatures: Dispatcher [employer] EDJesi Chance Jesse jb2 Kena Lara, RN RN Susan Fernandez Ashley ag1 Erick Sorenson, GENERAL MAINTENANCE MECHANIC GENERAL MAINTENANCE MECHANIC pm1 Flavio Maldonado RN RN ae1 Laura Barclay3
--- NOTE | 2017-07-14 10:10 | EDPHYS ---
Physician Documentation [facility] Name: Marcy Flores Age: 21 yrs Sex: Female : 1995 Arrival Date: 07/14/2017 Time: 06:30 Bed 14 Private MD: Dariusz Gonzalez W ED Physician Siddhartha Harris HPI: 07/14 18:09 This 21 yrs old Female presents to ER via Ambulatory with complaints of pm1 Headache and syncope. 18:09 The patient has experienced syncope, collapsed. Onset: The symptoms/episode pm1 began/occurred yesterday. Duration: This was a single episode, that lasted an unknown period of time. Context: occurred at work, occurred while the patient was sitting, Just prior to the episode the patient experienced no apparent symptoms. Patient with abdominal pain 2 days ago. Yesterday patient went to work, felt lightheaded and sat down in break room chair. Patient reports walking up on the floor. Patient without any neck pain or injury. Patient reports headache to occipital area for the past two days. no chest pain or shortness of breath. 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 - Social history:: Smoking status: Patient/guardian denies using tobacco, Patient uses alcohol, occasionally. Patient/guardian denies using street drugs. ROS: 18:09 Constitutional: Negative for fever, chills, and weight loss, Eyes: Negative for injury, pm1 pain, redness, and discharge, ENT: Negative for injury, pain, and discharge, Neck: Negative for injury, pain, and swelling, Cardiovascular: Negative for chest pain, palpitations, and edema, Respiratory: Negative for shortness of breath, cough, wheezing, and pleuritic chest pain. 18:09 Back: Negative for injury and pain, : Negative for injury, bleeding, discharge, and swelling, MS/Extremity: Negative for injury and deformity, Skin: Negative for injury, rash, and discoloration. 18:09 Abdomen/GI: Positive for abdominal pain, Negative for nausea, vomiting, and diarrhea. 18:09 Neuro: Positive for headache, near syncope, Negative for weakness. Exam: 18:09 Abdomen/GI: Exam negative for Inspection: abdomen appears normal, Bowel sounds: normal, pm1 Palpation: abdomen is soft and non-tender, in all quadrants. 18:09 Constitutional: This is a well developed, well nourished patient who is awake, alert, and in no acute distress. Head/Face: Normocephalic, atraumatic. Eyes: Pupils equal round and reactive to light, extra-ocular motions intact. Lids and lashes normal. Conjunctiva and sclera are non-icteric and not injected. Cornea within normal limits. Periorbital areas with no swelling, redness, or edema. ENT: Nares patent. No nasal discharge, no septal abnormalities noted. Tympanic membranes are normal and external auditory canals are clear. Oropharynx with no redness, swelling, or masses, exudates, or evidence of obstruction, uvula midline. Mucous membranes moist. Neck: Trachea midline, no thyromegaly or masses palpated, and no cervical lymphadenopathy. Supple, full range of motion without nuchal rigidity, or vertebral point tenderness. No Meningismus. Chest/axilla: Normal chest wall appearance and motion. Nontender with no deformity. No lesions are appreciated. Cardiovascular: Regular rate and rhythm with a normal S1 and S2. No gallops, murmurs, or rubs. Normal PMI, no JVD. No pulse deficits. Respiratory: Lungs have equal breath sounds bilaterally, clear to auscultation and percussion. No rales, rhonchi or wheezes noted. No increased work of breathing, no retractions or nasal flaring. Back: No spinal tenderness. No costovertebral tenderness. Full range of motion. Skin: Warm, dry with normal turgor. Normal color with no rashes, no lesions, and no evidence of cellulitis. MS/ Extremity: Pulses equal, no cyanosis. Neurovascular intact. Full, normal range of motion. 18:09 Neuro: Orientation: is normal, Mentation: is normal, Cranial nerves: CN II- XII are normal as tested, Cerebellar function: normal finger to nose testing, Motor: moves all fours, strength is normal, strength is 5/5 in all extremities, Sensation: is normal, no obvious gross deficits. Vital Signs: 06:35 BP 135 / 76; Pulse 68; Resp 18; Temp 98.0(O); Pulse Ox 99% on R/A; Weight 61.23 kg (R); fc Height 5 ft. 2 in. (157.48 cm) (R); Pain 4/10; 07:23 BP 113 / 65; Pulse 60; Resp 16; Pulse Ox 100% on R/A; ae1 07:50 BP 107 / 63 LA Supine; Pulse 62 MON; ap3 07:53 BP 113 / 82 LA Sitting; Pulse 65 MON; ap3 07:56 BP 106 / 80 LA Standing; Pulse 74 MON; ap3 09:32 BP 106 / 69; Pulse 91; Resp 16; Pulse Ox 100% on R/A; ap3 10:24 BP 105 / 67; Pulse 79; Pulse Ox 100% on R/A; ap3 06:35 Body Mass Index 24.69 (61.23 kg, 157.48 cm) fc MDM: 06:48 Patient medically screened. pm1 10:08 Data reviewed: vital signs. Data interpreted: Pulse oximetry: on room air is 100 %. pm1 Interpretation: normal. Counseling: I had a detailed discussion with the patient and/or guardian regarding: the historical points, exam findings, and any diagnostic results supporting the discharge/admit diagnosis, lab results, radiology results, the need for outpatient follow up, to return to the emergency department if symptoms worsen or persist or if there are any questions or concerns that arise at home. 07/14 07:17 Order name: Basic Metabolic Panel; Complete Time: 08:05 pm1 07/14 07:17 Order name: BNP; Complete Time: 08:05 pm1 07/14 07:17 Order name: CBC with Diff; Complete Time: 08:05 pm1 07/14 07:17 Order name: LFT's; Complete Time: 08:05 pm1 07/14 07:17 Order name: Magnesium; Complete Time: 08:05 pm1 07/14 07:17 Order name: PT-INR; Complete Time: 08:56 pm1 07/14 07:17 Order name: Ptt, Activated; Complete Time: 08:56 pm1 07/14 07:17 Order name: Troponin (emerg Dept Use Only); Complete Time: 08:05 pm1 07/14 07:17 Order name: XRAY Chest (1 view); Complete Time: 10:07 pm07/14 07:17 Order name: EKG; Complete Time: 07:18 pm07/14 07:26 Order name: Urine Dipstick--Ancillary (enter results); Complete Time: 08:56 ag 07/14 07:26 Order name: Urine --Ancillary (enter results); Complete Time: 08:56 ag 07/14 07:35 Order name: CT Head Brain wo Cont; Complete Time: 08:05 pm07/14 07:17 Order name: Urine Test (obtain specimen); Complete Time: 07:20 pm07/14 07:17 Order name: Cardiac monitoring; Complete Time: 07:38 pm07/14 07:17 Order name: EKG - Nurse/Tech; Complete Time: 07:40 pm07/14 07:17 Order name: IV Saline Lock; Complete Time: 07:26 pm07/14 07:17 Order name: Labs collected and sent; Complete Time: 07:26 pm07/14 07:17 Order name: O2 Per Protocol; Complete Time: 07:26 pm07/14 07:17 Order name: O2 Sat Monitoring; Complete Time: 07:26 pm07/14 07:17 Order name: Urine Dipstick-Ancillary (obtain specimen); Complete Time: 07:21 pm07/14 07:18 Order name: Orthostatics; Complete Time: 08:03 pm1 Administered Medications: 08:15 Drug: NS 0.9% 1000 ml Route: IV; Rate: 1000 ml; Site: left forearm; ae1 09:50 Follow up: IV Status: Completed infusion ae1 Disposition: 15:55 Co-signature as Attending Physician, Siddhartha Harris MD I agree with the assessment and rafiq plan of care. Disposition: 07/14/17 10:09 Discharged to Home. Impression: Syncope and collapse, Headache, Unspecified abdominal pain. - Condition is Stable. - Discharge Instructions: Abdominal Pain, Adult, General Headache Without Cause, Syncope. - Prescriptions for Bentyl 20 mg Oral Tablet - take 1 tablet by ORAL route every 6 hours As needed; 20 tablet. Zofran 4 mg Oral Tablet - take 1 tablet by ORAL route every 8 hours As needed; 20 tablet. - Medication Reconciliation Form, Thank You Letter, Work release form form. - Follow up: Emergency Department; When: As needed; Reason: Worsening of condition. Follow up: Dariusz Gonzalez MD; When: 2 - 3 days; Reason: Recheck today's complaints, Continuance of care, Re-evaluation by your physician. - Problem is new. - Symptoms have improved. Signatures: Dispatcher [employer] EDSiddhartha Regalado MD MD cha Chretien, Felicia, RN RN Erick Calderon NP HOSPITAL HOUSEKEEPER pm1 Flavio Maldonado RN RN ae1
[2017-07-14 10:34] VITALS: TEMP 98
[2017-07-14 10:35] VITALS: O2SAT 100
[2017-07-14 10:40] VITALS: BP 105/67
--- NOTE | 2017-07-16 12:56 | EKG ---
Test Date: 2017-07-14 Test Time: 07:37:42 Safety Sitter: CLEVE MEASUREMENT RESULTS: Intervals: Rate: 56 [place]: 136 QRSD: 78 QT: 406 QTc: 391 [place]: P: 39 [place]: 136 QRS: 49 T: 40 INTERPRETIVE STATEMENTS: Sinus bradycardia with marked sinus arrhythmia Otherwise normal ECG Compared to ECG 08/26/2016 21:08:58 No significant changes Electronically Signed On 07-16-17 12:55:04 CDT by Elroy Silveira
== END 2017-07-14 10:28 | disposition home or self-care (01) ==
LOC: ER 06:26
DX: R51 Headache (principal); R10.9 Unspecified abdominal pain; Z88.8 Allergy status to other drugs, medicaments and biological substances; Z91.018 Allergy to other foods
CPT/HCPCS: 36415; 70450; 71045; 80048; 80076; 81003; 81025; 83735; 83880; 84484; 85025; 85610; 85730; 93005; 96360; 96361; 99284; J7030

== ENCOUNTER 2017-12-03 06:40 | Emergency (ER) | payer SELFPAY ==
--- OUTSIDE RECORDS SUMMARY | 2017-12-03 06:42 | XMS REPORT | Clinical Summary ---
:1995 Author Organization [facility] Address [address] [place] [address] Phone Care Team Providers Name Role Phone Unavailable Primary Care Provider Unavailable Allergies Active Allergy Reactions Severity Noted Date Comments Acetaminophen-Calcium Carbonat Swelling High 08/27/2016 Hands Cinnamon Analogues Swelling High 08/27/2016 Throat Apple Cider Vinegar Rash Low 08/27/2016 Apple Current Medications No known medications Active Problems Problem Noted Date Choledocholithiasis 08/27/2016 Social History Tobacco Use Types Packs/Day Years Used Date Never Smoker Sex Assigned at Date Recorded Not on file Last Filed Vital Signs Not on file Plan of Treatment Not on file Results Not on fileafter 12/02/2016
--- OUTSIDE RECORDS SUMMARY | 2017-12-03 06:43 | XMS REPORT ---
:1995 [facility] Address [address] [place] [id number] Care Team Providers Name Role Phone JUAN MIGUEL LEYVA Unavailable Unavailable Problems This patient has no known problems. Allergies, Adverse Reactions, Alerts This patient has no known allergies or adverse reactions. Medications This patient has no known medications. Results Test Description Test Time Test Comments Text Results Atomic Results Result Comments CBC W/PLT COUNT & AUTO DIFFERENTIAL 2016-08-31 06:31:00 Test Item Value Reference Range Comments WHITE BLOOD CELL COUNT (BEAKER) (test qlqy=976) 8.4 K/ L 4.0-10.0 RED BLOOD CELL COUNT (BEAKER) (test bpdn=152) 4.76 M/ L 4.00-5.00 HEMOGLOBIN (BEAKER) (test yjpi=707) 14.0 GM/DL 12.0-15.0 HEMATOCRIT (BEAKER) (test qyir=350) 43.3 % 36.0-45.0 MEAN CORPUSCULAR VOLUME (BEAKER) (test kfex=113) 91.0 fL 82.0-99.0 MEAN CORPUSCULAR HEMOGLOBIN (BEAKER) (test fuvo=642) 29.5 pg 27.0-33.0 MEAN CORPUSCULAR HEMOGLOBIN CONC (BEAKER) (test fdav=504) 32.4 GM/DL 32.0- 36.0 RED CELL DISTRIBUTION WIDTH (BEAKER) (test dnfw=267) 11.5 % 10.3-14.2 PLATELET COUNT (BEAKER) (test kwmr=438) 215 K/CU MM 150-430 MEAN PLATELET VOLUME (BEAKER) (test aypa=871) 7.7 fL 6.5-10.5 NUCLEATED RED BLOOD CELLS (BEAKER) (test psvc=365) 0 /100 WBC 0-0 NEUTROPHILS RELATIVE PERCENT (BEAKER) (test jacg=405) 48 % LYMPHOCYTES RELATIVE PERCENT (BEAKER) (test conb=938) 35 % MONOCYTES RELATIVE PERCENT (BEAKER) (test fxbz=740) 9 % EOSINOPHILS RELATIVE PERCENT (BEAKER) (test yaue=072) 7 % BASOPHILS RELATIVE PERCENT (BEAKER) (test sdrb=052) 1 % NEUTROPHILS ABSOLUTE COUNT (BEAKER) (test ttbf=757) 4.02 K/ L 1.80-8.00 LYMPHOCYTES ABSOLUTE COUNT (BEAKER) (test nbth=057) 2.96 K/ L 1.48-4.50 MONOCYTES ABSOLUTE COUNT (BEAKER) (test qrvj=634) 0.78 K/ L 0.00-1.30 EOSINOPHILS ABSOLUTE COUNT (BEAKER) (test ijll=083) 0.58 K/ L 0.00-0.50 BASOPHILS ABSOLUTE COUNT (BEAKER) (test ugno=286) 0.04 K/ L 0.00-0.20 0.00HEPATIC FUNCTION [id number] 06:03:00 Test Item Value Reference Range Comments TOTAL PROTEIN (BEAKER) (test pyvw=971) 7.6 gm/dL 6.0-8.3 ALBUMIN (BEAKER) (test jbor=9394) 4.4 g/dL 3.5-5.0 BILIRUBIN TOTAL (BEAKER) (test ovil=259) 1.1 mg/dL 0.2-1.2 BILIRUBIN DIRECT (BEAKER) (test ckid=683) 0.5 mg/dL 0.1-0.5 ALKALINE PHOSPHATASE (BEAKER) (test hpwb=076) 115 U/L 40-150 AST (SGOT) (BEAKER) (test rohr=648) 34 U/L 5-34 ALT (SGPT) (BEAKER) (test hjsb=123) 151 U/L 6-55 BASIC METABOLIC [id number] 06:03:00 Test Item Value Reference Range Comments SODIUM (BEAKER) (test 139 meq/L 136-145 pupd=566) POTASSIUM (BEAKER) (test 3.5 meq/L 3.5-5.1 ixnc=936) CHLORIDE (BEAKER) (test 107 meq/L 98-107 wssm=434) CO2 (BEAKER) (test 17 meq/L 22-29 xwxk=261) BLOOD UREA NITROGEN 5 mg/dL 7-21 (BEAKER) (test pfar=907) CREATININE (BEAKER) (test 0.65 mg/dL 0.57-1.25 siwe=903) GLUCOSE RANDOM (BEAKER) 72 mg/dL 70-105 (test emzj=625) CALCIUM (BEAKER) (test 9.1 mg/dL 8.4-10.2 rotc=706) EGFR (BEAKER) (test 119 mL/min/1.73 sq m ESTIMATED GFR IS NOT ecvw=2629) ACCURATE CREATININE CLEARANCE IN PREDICTING GLOMERULAR FILTRATION RATE. ESTIMATED GFR IS NOT APPLICABLE FOR DIALYSIS PATIENTS. CBC W/PLT COUNT & AUTO [id number] 08:15:00 Test Item Value Reference Range Comments WHITE BLOOD CELL COUNT (BEAKER) (test teyq=837) 9.0 K/ L 4.0-10.0 RED BLOOD CELL COUNT (BEAKER) (test hsbq=283) 4.58 M/ L 4.00-5.00 HEMOGLOBIN (BEAKER) (test bwxs=270) 14.1 GM/DL 12.0-15.0 HEMATOCRIT (BEAKER) (test soyy=195) 42.1 % 36.0-45.0 MEAN CORPUSCULAR VOLUME (BEAKER) (test hrnr=066) 92.0 fL 82.0-99.0 MEAN CORPUSCULAR HEMOGLOBIN (BEAKER) (test 30.8 pg 27.0-33.0 iihf=727) MEAN CORPUSCULAR HEMOGLOBIN CONC (BEAKER) (test 33.5 GM/DL 32.0-36.0 mvae=917) RED CELL DISTRIBUTION WIDTH (BEAKER) (test 11.3 % 10.3-14.2 utup=414) PLATELET COUNT (BEAKER) (test fdhd=425) 181 K/CU MM 150-430 MEAN PLATELET VOLUME (BEAKER) (test brzp=562) 7.8 fL 6.5-10.5 NUCLEATED RED BLOOD CELLS (BEAKER) (test 0 /100 WBC 0-0 hbgy=614) NEUTROPHILS RELATIVE PERCENT (BEAKER) (test 69 % alzg=420) LYMPHOCYTES RELATIVE PERCENT (BEAKER) (test 21 % yvgl=438) MONOCYTES RELATIVE PERCENT (BEAKER) (test 7 % ctxg=232) EOSINOPHILS RELATIVE PERCENT (BEAKER) (test 3 % cwpc=239) BASOPHILS RELATIVE PERCENT (BEAKER) (test 1 % caef=094) NEUTROPHILS ABSOLUTE COUNT (BEAKER) (test 6.24 K/ L 1.80-8.00 zbwn=010) LYMPHOCYTES ABSOLUTE COUNT (BEAKER) (test 1.85 K/ L 1.48-4.50 yzru=705) MONOCYTES ABSOLUTE COUNT (BEAKER) (test 0.67 K/ L 0.00-1.30 zsju=837) EOSINOPHILS ABSOLUTE COUNT (BEAKER) (test 0.23 K/ L 0.00-0.50 wacj=001) BASOPHILS ABSOLUTE COUNT (BEAKER) (test 0.05 K/ L 0.00-0.20 mxzk=397) 0.00HEPATIC FUNCTION [id number] 06:43:00 Test Item Value Reference Range Comments TOTAL PROTEIN (BEAKER) (test nece=580) 7.0 gm/dL 6.0-8.3 ALBUMIN (BEAKER) (test nqrd=2118) 4.1 g/dL 3.5-5.0 BILIRUBIN TOTAL (BEAKER) (test fgxk=923) 1.2 mg/dL 0.2-1.2 BILIRUBIN DIRECT (BEAKER) (test lpgm=575) 0.5 mg/dL 0.1-0.5 ALKALINE PHOSPHATASE (BEAKER) (test buti=546) 119 U/L 40-150 AST (SGOT) (BEAKER) (test fmtk=116) 50 U/L 5-34 ALT (SGPT) (BEAKER) (test xnho=217) 189 U/L 6-55 BASIC METABOLIC [id number] 06:43:00 Test Item Value Reference Range Comments SODIUM (BEAKER) (test 137 meq/L 136-145 tvcs=628) POTASSIUM (BEAKER) (test 4.1 meq/L 3.5-5.1 xdzv=920) CHLORIDE (BEAKER) (test 109 meq/L 98-107 zqdp=576) CO2 (BEAKER) (test 14 meq/L 22-29 elhm=562) BLOOD UREA NITROGEN 5 mg/dL 7-21 (BEAKER) (test qaco=193) CREATININE (BEAKER) (test 0.63 mg/dL 0.57-1.25 gvay=619) GLUCOSE RANDOM (BEAKER) 64 mg/dL 70-105 (test hnri=222) CALCIUM (BEAKER) (test 8.8 mg/dL 8.4-10.2 ugvh=513) EGFR (BEAKER) (test 123 mL/min/1.73 sq m ESTIMATED GFR IS NOT xuva=9332) ACCURATE CREATININE CLEARANCE IN PREDICTING GLOMERULAR FILTRATION RATE. ESTIMATED GFR IS NOT APPLICABLE FOR DIALYSIS PATIENTS. SCREEN, [id number] 10:31:00 Test Item Value Reference Range Comments TEST URINE (BEAKER) (test ggeh=775) Negative CBC W/PLT COUNT & AUTO [id number] 06:59:00 Test Item Value Reference Range Comments WHITE BLOOD CELL COUNT (BEAKER) (test pqxp=271) 7.0 K/ L 4.0-10.0 RED BLOOD CELL COUNT (BEAKER) (test uslr=205) 4.35 M/ L 4.00-5.00 HEMOGLOBIN (BEAKER) (test biwp=021) 13.4 GM/DL 12.0-15.0 HEMATOCRIT (BEAKER) (test kfva=701) 40.4 % 36.0-45.0 MEAN CORPUSCULAR VOLUME (BEAKER) (test acso=851) 92.8 fL 82.0-99.0 MEAN CORPUSCULAR HEMOGLOBIN (BEAKER) (test 30.9 pg 27.0-33.0 wqgx=109) MEAN CORPUSCULAR HEMOGLOBIN CONC (BEAKER) (test 33.3 GM/DL 32.0-36.0 rczu=523) RED CELL DISTRIBUTION WIDTH (BEAKER) (test 11.4 % 10.3-14.2 wvll=487) PLATELET COUNT (BEAKER) (test arhy=894) 160 K/CU MM 150-430 MEAN PLATELET VOLUME (BEAKER) (test erjf=735) 8.0 fL 6.5-10.5 NUCLEATED RED BLOOD CELLS (BEAKER) (test 0 /100 WBC 0-0 oapt=369) NEUTROPHILS RELATIVE PERCENT (BEAKER) (test 53 % npro=819) LYMPHOCYTES RELATIVE PERCENT (BEAKER) (test 36 % leic=071) MONOCYTES RELATIVE PERCENT (BEAKER) (test 7 % ywqf=409) EOSINOPHILS RELATIVE PERCENT (BEAKER) (test 4 % vzom=698) BASOPHILS RELATIVE PERCENT (BEAKER) (test 1 % phol=201) NEUTROPHILS ABSOLUTE COUNT (BEAKER) (test 3.69 K/ L 1.80-8.00 ykkf=451) LYMPHOCYTES ABSOLUTE COUNT (BEAKER) (test 2.51 K/ L 1.48-4.50 ypma=523) MONOCYTES ABSOLUTE COUNT (BEAKER) (test 0.47 K/ L 0.00-1.30 vlzw=364) EOSINOPHILS ABSOLUTE COUNT (BEAKER) (test 0.26 K/ L 0.00-0.50 amzt=887) BASOPHILS ABSOLUTE COUNT (BEAKER) (test 0.05 K/ L 0.00-0.20 vgid=028) 0.00HEPATIC FUNCTION [id number] 06:29:00 Test Item Value Reference Range Comments TOTAL PROTEIN (BEAKER) (test bxdk=321) 6.6 gm/dL 6.0-8.3 ALBUMIN (BEAKER) (test rwzs=1806) 4.0 g/dL 3.5-5.0 BILIRUBIN TOTAL (BEAKER) (test sasq=099) 1.0 mg/dL 0.2-1.2 BILIRUBIN DIRECT (BEAKER) (test tlre=670) 0.5 mg/dL 0.1-0.5 ALKALINE PHOSPHATASE (BEAKER) (test vfse=498) 101 U/L 40-150 AST (SGOT) (BEAKER) (test ttvh=492) 51 U/L 5-34 ALT (SGPT) (BEAKER) (test elhq=187) 210 U/L 6-55 BASIC METABOLIC [id number] 06:29:00 Test Item Value Reference Range Comments SODIUM (BEAKER) (test 139 meq/L 136-145 ctnv=876) POTASSIUM (BEAKER) (test 3.7 meq/L 3.5-5.1 ddgp=791) CHLORIDE (BEAKER) (test 107 meq/L 98-107 jomo=886) CO2 (BEAKER) (test 21 meq/L 22-29 yvxb=728) BLOOD UREA NITROGEN 4 mg/dL 7-21 (BEAKER) (test kbqd=284) CREATININE (BEAKER) (test 0.62 mg/dL 0.57-1.25 zmnl=182) GLUCOSE RANDOM (BEAKER) 64 mg/dL 70-105 (test takv=518) CALCIUM (BEAKER) (test 8.7 mg/dL 8.4-10.2 sduy=096) EGFR (BEAKER) (test 125 mL/min/1.73 sq m ESTIMATED GFR IS NOT jfwv=1519) ACCURATE CREATININE CLEARANCE IN PREDICTING GLOMERULAR FILTRATION RATE. ESTIMATED GFR IS NOT APPLICABLE FOR DIALYSIS PATIENTS. HEPATIC FUNCTION [id number] 05:02:00 Test Item Value Reference Range Comments TOTAL PROTEIN (BEAKER) (test swqj=129) 6.0 gm/dL 6.0-8.3 ALBUMIN (BEAKER) (test vniy=0221) 3.5 g/dL 3.5-5.0 BILIRUBIN TOTAL (BEAKER) (test rdgt=054) 0.9 mg/dL 0.2-1.2 BILIRUBIN DIRECT (BEAKER) (test rupl=747) 0.4 mg/dL 0.1-0.5 ALKALINE PHOSPHATASE (BEAKER) (test kbko=729) 100 U/L 40-150 AST (SGOT) (BEAKER) (test amdd=653) 73 U/L 5-34 ALT (SGPT) (BEAKER) (test vdcz=551) 250 U/L 6-55 BASIC METABOLIC [id number] 05:02:00 Test Item Value Reference Range Comments SODIUM (BEAKER) (test 140 meq/L 136-145 mrmm=351) POTASSIUM (BEAKER) (test 3.8 meq/L 3.5-5.1 bmhz=305) CHLORIDE (BEAKER) (test 110 meq/L 98-107 okkt=390) CO2 (BEAKER) (test 22 meq/L 22-29 scgi=041) BLOOD UREA NITROGEN 4 mg/dL 7-21 (BEAKER) (test mtkn=830) CREATININE (BEAKER) (test 0.62 mg/dL 0.57-1.25 mtap=376) GLUCOSE RANDOM (BEAKER) 75 mg/dL 70-105 (test pnfl=817) CALCIUM (BEAKER) (test 8.4 mg/dL 8.4-10.2 xwmn=186) EGFR (BEAKER) (test 125 mL/min/1.73 sq m ESTIMATED GFR IS NOT geyu=8755) ACCURATE CREATININE CLEARANCE IN PREDICTING GLOMERULAR FILTRATION RATE. ESTIMATED GFR IS NOT APPLICABLE FOR DIALYSIS PATIENTS. CBC W/PLT COUNT & AUTO [id number] 04:37:00 Test Item Value Reference Range Comments WHITE BLOOD CELL COUNT (BEAKER) (test annv=605) 7.1 K/ L 4.0-10.0 RED BLOOD CELL COUNT (BEAKER) (test pxpt=816) 3.94 M/ L 4.00-5.00 HEMOGLOBIN (BEAKER) (test lick=719) 12.1 GM/DL 12.0-15.0 HEMATOCRIT (BEAKER) (test enyz=311) 36.2 % 36.0-45.0 MEAN CORPUSCULAR VOLUME (BEAKER) (test nldf=543) 91.8 fL 82.0-99.0 MEAN CORPUSCULAR HEMOGLOBIN (BEAKER) (test 30.8 pg 27.0-33.0 kfwb=766) MEAN CORPUSCULAR HEMOGLOBIN CONC (BEAKER) (test 33.5 GM/DL 32.0-36.0 ittv=873) RED CELL DISTRIBUTION WIDTH (BEAKER) (test 12.1 % 10.3-14.2 iimu=845) PLATELET COUNT (BEAKER) (test rfjr=438) 157 K/CU MM 150-430 MEAN PLATELET VOLUME (BEAKER) (test ulwq=359) 7.8 fL 6.5-10.5 NUCLEATED RED BLOOD CELLS (BEAKER) (test 0 /100 WBC 0-0 wsig=420) NEUTROPHILS RELATIVE PERCENT (BEAKER) (test 53 % fhhj=231) LYMPHOCYTES RELATIVE PERCENT (BEAKER) (test 36 % wvva=861) MONOCYTES RELATIVE PERCENT (BEAKER) (test 6 % lyen=717) EOSINOPHILS RELATIVE PERCENT (BEAKER) (test 4 % dium=771) BASOPHILS RELATIVE PERCENT (BEAKER) (test 1 % nzro=168) NEUTROPHILS ABSOLUTE COUNT (BEAKER) (test 3.75 K/ L 1.80-8.00 vbjo=697) LYMPHOCYTES ABSOLUTE COUNT (BEAKER) (test 2.54 K/ L 1.48-4.50 uhoq=004) MONOCYTES ABSOLUTE COUNT (BEAKER) (test 0.44 K/ L 0.00-1.30 aylh=907) EOSINOPHILS ABSOLUTE COUNT (BEAKER) (test 0.27 K/ L 0.00-0.50 gkiw=827) BASOPHILS ABSOLUTE COUNT (BEAKER) (test 0.05 K/ L 0.00-0.20 bvbg=342) [id number] 07:40:00 Test Item Value Reference Range Comments LIPASE (BEAKER) (test vujv=221) 8 U/L 8-78 [id number] 07:40:00 Test Item Value Reference Range Comments AMYLASE (BEAKER) (test ovcn=902) 44 U/L 25-125 BASIC METABOLIC [id number] 07:40:00 Test Item Value Reference Range Comments SODIUM (BEAKER) (test 140 meq/L 136-145 wyox=184) POTASSIUM (BEAKER) (test 3.8 meq/L 3.5-5.1 ekiu=205) CHLORIDE (BEAKER) (test 109 meq/L 98-107 hgdt=947) CO2 (BEAKER) (test 22 meq/L 22-29 lmuc=914) BLOOD UREA NITROGEN 4 mg/dL 7-21 (BEAKER) (test lesp=369) CREATININE (BEAKER) (test 0.63 mg/dL 0.57-1.25 tbob=236) GLUCOSE RANDOM (BEAKER) 94 mg/dL 70-105 (test gzxb=902) CALCIUM (BEAKER) (test 8.4 mg/dL 8.4-10.2 kjct=453) EGFR (BEAKER) (test 123 mL/min/1.73 sq m ESTIMATED GFR IS NOT fzkz=8254) ACCURATE CREATININE CLEARANCE IN PREDICTING GLOMERULAR FILTRATION RATE. ESTIMATED GFR IS NOT APPLICABLE FOR DIALYSIS PATIENTS. HEPATIC FUNCTION [id number] 07:40:00 Test Item Value Reference Range Comments TOTAL PROTEIN (BEAKER) (test ucgf=303) 6.2 gm/dL 6.0-8.3 ALBUMIN (BEAKER) (test qpkc=2498) 3.7 g/dL 3.5-5.0 BILIRUBIN TOTAL (BEAKER) (test epww=510) 0.7 mg/dL 0.2-1.2 BILIRUBIN DIRECT (BEAKER) (test cmmh=216) 0.3 mg/dL 0.1-0.5 ALKALINE PHOSPHATASE (BEAKER) (test gudi=992) 106 U/L 40-150 AST (SGOT) (BEAKER) (test hoij=297) 81 U/L 5-34 ALT (SGPT) (BEAKER) (test rhlh=365) 309 U/L 6-55 CBC W/PLT COUNT & AUTO [id number] 06:56:00 Test Item Value Reference Range Comments WHITE BLOOD CELL COUNT (BEAKER) (test kaon=192) 7.3 K/ L 4.0-10.0 RED BLOOD CELL COUNT (BEAKER) (test agoy=669) 3.89 M/ L 4.00-5.00 HEMOGLOBIN (BEAKER) (test hwum=778) 12.3 GM/DL 12.0-15.0 HEMATOCRIT (BEAKER) (test vydu=197) 36.0 % 36.0-45.0 MEAN CORPUSCULAR VOLUME (BEAKER) (test iyus=610) 92.4 fL 82.0-99.0 MEAN CORPUSCULAR HEMOGLOBIN (BEAKER) (test 31.5 pg 27.0-33.0 cxqs=515) MEAN CORPUSCULAR HEMOGLOBIN CONC (BEAKER) (test 34.1 GM/DL 32.0-36.0 pkgm=488) RED CELL DISTRIBUTION WIDTH (BEAKER) (test 12.5 % 10.3-14.2 qbtk=244) PLATELET COUNT (BEAKER) (test lvbt=450) 163 K/CU MM 150-430 MEAN PLATELET VOLUME (BEAKER) (test oitb=224) 7.9 fL 6.5-10.5 NUCLEATED RED BLOOD CELLS (BEAKER) (test 0 /100 WBC 0-0 bxcq=371) NEUTROPHILS RELATIVE PERCENT (BEAKER) (test 56 % pslk=009) LYMPHOCYTES RELATIVE PERCENT (BEAKER) (test 33 % aslo=769) MONOCYTES RELATIVE PERCENT (BEAKER) (test 8 % wtle=126) EOSINOPHILS RELATIVE PERCENT (BEAKER) (test 3 % okra=577) BASOPHILS RELATIVE PERCENT (BEAKER) (test 1 % ekde=324) NEUTROPHILS ABSOLUTE COUNT (BEAKER) (test 4.11 K/ L 1.80-8.00 cnhg=108) LYMPHOCYTES ABSOLUTE COUNT (BEAKER) (test 2.39 K/ L 1.48-4.50 jhjb=278) MONOCYTES ABSOLUTE COUNT (BEAKER) (test 0.57 K/ L 0.00-1.30 nfhl=084) EOSINOPHILS ABSOLUTE COUNT (BEAKER) (test 0.19 K/ L 0.00-0.50 uvrv=183) BASOPHILS ABSOLUTE COUNT (BEAKER) (test 0.05 K/ L 0.00-0.20 mfoe=877) 0.00PT/[id number] 06:46:00 Test Item Value Reference Range Comments PROTIME (BEAKER) (test broa=730) 15.3 seconds 11.7-14.7 INR (BEAKER) (test lfha=212) 1.2 <=5.9 PARTIAL THROMBOPLASTIN TIME (BEAKER) (test 32.9 seconds 22.5-36.0 lvke=775) RECOMMENDED COUMADIN/WARFARIN INR THERAPY RANGESSTANDARD DOSE: 2.0 - 3.0 Includes: PROPHYLAXIS forvenous thrombosis, systemic embolization; TREATMENT for venous thrombosis and/or pulmonary embolus.HIGH RISK: Target INR is 2.5-3.5 for patients with mechanical heart valves.
[2017-12-03] MEDS ORDERED: NA CHLORIDE 0.9% 1,000 ML ONE (07:22)
[2017-12-03] MEDS ORDERED: KETOROLAC 30 MG/ML INJ ONE (07:22)
[2017-12-03] MEDS ORDERED: METOCLOPRAMIDE 10 MG/2mL INJ ONE (07:22)
[2017-12-03 07:35] LABS: Urine Blood NEGATIVE (NEG); Urine Glucose NEGATIVE (NEG); Urine Protein NEGATIVE (NEG); Urine Specific Gravity >1.030 (1.005-1.030)
--- NOTE | 2017-12-03 08:43 | EDPHYS ---
Physician Documentation [facility] Name: Marcy Flores Age: 22 yrs Sex: Female : 1995 Arrival Date: 12/03/2017 Time: 06:41 Bed 20 Private MD: ED Physician Siddhartha Harris HPI: 12/03 07:09 This 22 yrs old Female presents to ER via Ambulatory with complaints of kb Headache. 07:09 The patient complains of pain to the top of head. The patient describes the headache as kb constant. Onset: The symptoms/episode began/occurred yesterday. Associated signs and symptoms: Pertinent positives: nausea, Photophobia vomiting. Severity of symptoms: At its worst the pain was moderate, in the emergency department the pain is unchanged. Headache History: The patient has had previous headaches and this one is similar to previous episodes. The symptoms are alleviated by nothing. the symptoms are aggravated by lights, noise. The patient has experienced similar episodes in the past. The patient has not recently seen a physician. 07:46 Pt reports migraine headache since yesterday morning. States "I can't get it to go kb away." Pt normally takes Advil Migraine, but states she hasn't had a chance to take anything for this headache. This migraine is similar to ones she has had in the past. . 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 - Social history:: Smoking status: Patient/guardian denies using tobacco. - Ebola Screening: : No symptoms or risks identified at this time. ROS: 07:10 Constitutional: Negative for fever, chills, and weight loss, Cardiovascular: Negative kb for chest pain, palpitations, and edema, Respiratory: Negative for shortness of breath, cough, wheezing, and pleuritic chest pain, Back: Negative for injury and pain, : Negative for injury, bleeding, discharge, and swelling, MS/Extremity: Negative for injury and deformity, Skin: Negative for injury, rash, and discoloration. 07:10 Abdomen/GI: Positive for nausea and vomiting, Negative for abdominal pain, diarrhea, constipation, abdominal cramps, abdominal distension, anorexia. 07:10 Neuro: Positive for headache. Exam: 07:10 Constitutional: This is a well developed, well nourished patient who is awake, alert, kb and in no acute distress. Head/Face: Normocephalic, atraumatic. Eyes: Pupils equal round and reactive to light, extra-ocular motions intact. Lids and lashes normal. Conjunctiva and sclera are non-icteric and not injected. Cornea within normal limits. Periorbital areas with no swelling, redness, or edema. ENT: Nares patent. No nasal discharge, no septal abnormalities noted. Tympanic membranes are normal and external auditory canals are clear. Oropharynx with no redness, swelling, or masses, exudates, or evidence of obstruction, uvula midline. Mucous membranes moist. Chest/axilla: Normal chest wall appearance and motion. Nontender with no deformity. No lesions are appreciated. Cardiovascular: Regular rate and rhythm with a normal S1 and S2. No gallops, murmurs, or rubs. Normal PMI, no JVD. No pulse deficits. Respiratory: Lungs have equal breath sounds bilaterally, clear to auscultation and percussion. No rales, rhonchi or wheezes noted. No increased work of breathing, no retractions or nasal flaring. Abdomen/GI: Soft, non-tender, with normal bowel sounds. No distension or tympany. No guarding or rebound. No evidence of tenderness throughout. Skin: Warm, dry with normal turgor. Normal color with no rashes, no lesions, and no evidence of cellulitis. MS/ Extremity: Pulses equal, no cyanosis. Neurovascular intact. Full, normal range of motion. Neuro: Awake and alert, GCS 15, oriented to person, place, time, and situation. Cranial nerves II-XII grossly intact. Motor strength 5/5 in all extremities. Sensory grossly intact. Cerebellar exam normal. Normal gait. Vital Signs: 06:48 BP 116 / 66; Pulse 71; Resp 15; Temp 98.3(O); Pulse Ox 100% on R/A; Weight 61.23 kg; la1 Height 5 ft. 2 in. (157.48 cm); 08:02 BP 108 / 67; Pulse 78; Resp 16; Pulse Ox 99% on R/A; Pain 5/10; em 09:18 BP 122 / 62; Pulse 58; Resp 16; Pulse Ox 99% on R/A; Pain 3/10; em 06:48 Body Mass Index 24.69 (61.23 kg, 157.48 cm) la1 [place] Coma Score: 07:10 Eye Response: spontaneous(4). Verbal Response: oriented(5). Motor Response: obeys kb commands(6). Total: 15. MDM: 07:03 Patient medically screened. kb 07:10 Data reviewed: vital signs, nurses notes. Data interpreted: Pulse oximetry: on room air kb is 100 %. Interpretation: normal. 07:46 Counseling: I had a detailed discussion with the patient and/or guardian regarding: the kb historical points, exam findings, and any diagnostic results supporting the discharge/admit diagnosis, the need for outpatient follow up, a family practitioner, to return to the emergency department if symptoms worsen or persist or if there are any questions or concerns that arise at home. 08:42 Response to treatment: the patient's symptoms have markedly improved after treatment. kb 12/03 07:34 Order name: Urine Dipstick--Ancillary (enter results); Complete Time: 07:38 bd 12/03 07:34 Order name: Urine --Ancillary (enter results); Complete Time: 07:38 bd 12/03 07:11 Order name: IV Start; Complete Time: 07:36 kb 12/03 07:11 Order name: Urine Dipstick-Ancillary (obtain specimen); Complete Time: 07:36 kb Administered Medications: 07:30 Drug: NS 0.9% 1000 ml Route: IV; Rate: 1000 ml; Site: right forearm; em 09:16 Follow up: IV Intake: 1000ml em 09:20 Follow up: IV Status: Completed infusion; IV Intake: 1000ml em 07:37 Drug: Reglan 10 mg Route: IVP; Site: right forearm; iw 09:14 Follow up: Response: No adverse reaction em 07:37 Drug: TORadol 30 mg Route: IVP; Site: right forearm; iw 09:14 Follow up: Response: No adverse reaction; Pain is decreased em Disposition: 12/04 08:55 Co-signature as Attending Physician, Siddhartha Harris MD I agree with the assessment and rafiq plan of care. Disposition: 12/03/17 08:42 Discharged to Home. Impression: Migraine. - Condition is Stable. - Discharge Instructions: Migraine Headache, [id number]. - Medication Reconciliation Form, Thank You Letter, Antibiotic Education, Prescription Opioid Use, Work release form form. - Follow up: Emergency Department; When: As needed; Reason: Worsening of condition. Follow up: Private Physician; When: 2 - 3 days; Reason: Recheck today's complaints, Continuance of care, Re-evaluation by your physician. Signatures: Dispatcher [employer] EDBrit Paul, GEOPHYSICAL DATA TECHNICIAN-C GEOPHYSICAL DATA TECHNICIAN-Ckb Siddhartha Harris MD MD cha Munoz, Edgar, ELECTRIC MOTOR ASSEMBLER AND TESTER ELECTRIC MOTOR ASSEMBLER AND TESTER em Madhavi Hopson, RN RN iw Ming Hill RN RN la1 Corrections: (The following items were deleted from the chart) 12/03 09:19 08:42 12/03/2017 08:42 Discharged to Home. Impression: Migraine. Condition is Stable. em Discharge Instructions: Migraine Headache, [id number]. Forms are Medication Reconciliation Form, Thank You Letter, Antibiotic Education, Prescription Opioid Use. Follow up: Emergency Department; When: As needed; Reason: Worsening of condition. Follow up: Private Physician; When: 2 - 3 days; Reason: Recheck today's complaints, Continuance of care, Re-evaluation by your physician. kb
--- NOTE | 2017-12-03 08:43 | ER ---
Nurse's Notes [facility] Name: Marcy Flores Age: 22 yrs Sex: Female : 1995 Arrival Date: 12/03/2017 Time: 06:41 Bed 20 Private MD: Diagnosis: Migraine Presentation: 12/03 06:47 Presenting complaint: Patient states: Migraine since yesterday, vomiting. Transition of la1 care: patient was not received from another setting of care. Onset of symptoms was December 03, 2017. Risk Assessment: Do you want to hurt yourself or someone else? Patient reports no desire to harm self or others. Initial Sepsis Screen: Does the patient meet any 2 criteria? No. Patient's initial sepsis screen is negative. Does the patient have a suspected source of infection? No. Patient's initial sepsis screen is negative. Care prior to arrival: None. 06:47 Method Of Arrival: Ambulatory la1 06:47 Acuity: BIRDIE 3 la1 Triage Assessment: 07:14 Headache History: The patient has had previous headaches and this one is similar to em previous episodes. General: Appears in no apparent distress. uncomfortable, Behavior is calm, cooperative. Pain: Complains of pain in occipital area Also complains of nausea, vomiting. 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 - Social history:: Smoking status: Patient/guardian denies using tobacco. - Ebola Screening: : No symptoms or risks identified at this time. Screenin:06 Abuse screen: Denies threats or abuse. Nutritional screening: No deficits noted. em Tuberculosis screening: No symptoms or risk factors identified. Fall Risk None identified. Assessment: 07:07 General: Appears in no apparent distress. uncomfortable, Behavior is calm, cooperative, em Reports being at water park yesterday and started getting headache, reports N/V dizziness, has hx of migraines, may be dehydrated. Pain: Complains of pain in occipital area Pain currently is 7 out of 10 on a pain scale. Pain began 1 day ago. Neuro: Level of Consciousness is awake, alert, obeys commands, Oriented to person, place, time, situation, Gait is steady, Speech is normal, Facial symmetry appears normal, Reports headache light headed since yesterday. Cardiovascular: Capillary refill < 3 seconds Patient's skin is warm and dry. Respiratory: Airway is patent Respiratory effort is even, unlabored, Respiratory pattern is regular, symmetrical. GI: Abdomen is flat, Bowel sounds present X 4 quads. Reports nausea, vomiting. : No signs and/or symptoms were reported regarding the genitourinary system. EENT: No signs and/or symptoms were reported regarding the EENT system. Derm: Skin is intact, Skin is pink, warm \T\ dry. Musculoskeletal: Range of motion: intact in all extremities. 07:15 Reassessment: Patient appears in no apparent distress at this time. I agree with above iw assessment by Draren Crocker LVN. 08:00 Reassessment: Patient appears in no apparent distress at this time. Patient and/or em family updated on plan of care and expected duration. Pain level reassessed. Patient is alert, oriented x 3, equal unlabored respirations, skin warm/dry/pink. rates pain 5/10 Patient states feeling better. Patient states symptoms have improved. 09:17 Reassessment: Patient appears in no apparent distress at this time. Patient and/or em family updated on plan of care and expected duration. Pain level reassessed. Patient is alert, oriented x 3, equal unlabored respirations, skin warm/dry/pink. Patient states feeling better. Patient states symptoms have improved. Vital Signs: 06:48 BP 116 / 66; Pulse 71; Resp 15; Temp 98.3(O); Pulse Ox 100% on R/A; Weight 61.23 kg; la1 Height 5 ft. 2 in. (157.48 cm); 08:02 BP 108 / 67; Pulse 78; Resp 16; Pulse Ox 99% on R/A; Pain 5/10; em 09:18 BP 122 / 62; Pulse 58; Resp 16; Pulse Ox 99% on R/A; Pain 3/10; em 06:48 Body Mass Index 24.69 (61.23 kg, 157.48 cm) la1 [place] Coma Score: 07:10 Eye Response: spontaneous(4). Verbal Response: oriented(5). Motor Response: obeys kb commands(6). Total: 15. ED Course: 06:41 Patient arrived in ED. ds1 06:48 Triage completed. la1 06:48 Arm band placed on left wrist. la1 06:58 Brit Hubbard [facility]C [facility] kb 06:58 Titi Gaines MD is Attending Physician. kb 07:02 Darren Crocker LVN is Primary Nurse. em 07:06 Patient has correct armband on for positive identification. Placed in gown. Bed in low em position. Call light in reach. 07:12 Siddhartha Harris MD is Attending Physician. kb 07:30 No provider procedures requiring assistance completed. Initial lab(s) drawn, by me, em sent to lab. Urine collected: clean catch specimen, clear. Inserted saline lock: 20 gauge in right forearm, using aseptic technique. Blood collected. 09:17 IV discontinued, intact, bleeding controlled, No redness/swelling at site. Pressure em dressing applied. Administered Medications: 07:30 Drug: NS 0.9% 1000 ml Route: IV; Rate: 1000 ml; Site: right forearm; em 09:16 Follow up: IV Intake: 1000ml em 09:20 Follow up: IV Status: Completed infusion; IV Intake: 1000ml em 07:37 Drug: Reglan 10 mg Route: IVP; Site: right forearm; iw 09:14 Follow up: Response: No adverse reaction em 07:37 Drug: TORadol 30 mg Route: IVP; Site: right forearm; iw 09:14 Follow up: Response: No adverse reaction; Pain is decreased em Intake: 09:20 IV: 1000ml; Total: 1000ml. em Outcome: 08:42 Discharge ordered by . kb 09:19 Discharged to home ambulatory. em 09:19 Condition: good 09:19 Discharge instructions given to patient, Instructed on discharge instructions, follow up and referral plans. Demonstrated understanding of instructions, follow-up care. 09:19 Patient left the ED. em Signatures: Brit Hubbard FNP-C BOMBSIGHT SPECIALIST-Darren Cottrell LVN LVN em Leidy Kenyon ds1 Madhavi Hopson, ROSMERY RN iw Ming Hill RN RN la1 Corrections: (The following items were deleted from the chart) 09:20 09:16 IV Intake: 1000ml em em
[2017-12-03 09:24] VITALS: TEMP 98.3
[2017-12-03 09:25] VITALS: O2SAT 99
[2017-12-03 09:26] VITALS: BP 122/62
== END 2017-12-03 09:19 | disposition home or self-care (01) ==
LOC: ER 06:40
DX: G43.909 Migraine, unspecified, not intractable, without status migrainosus (principal); Z88.8 Allergy status to other drugs, medicaments and biological substances; Z91.018 Allergy to other foods; K58.9 Irritable bowel syndrome, unspecified; K21.9 Gastro-esophageal reflux disease without esophagitis
CPT/HCPCS: 81003; 81025; 96361; 96374; 96375; 99283; J2765; J7030

== ENCOUNTER 2018-09-11 21:40 | Emergency (ER) | payer SELFPAY ==
--- OUTSIDE RECORDS SUMMARY | 2018-09-11 21:42 | XMS REPORT | Clinical Summary ---
:1995 Author Organization [facility] Address [address] [place] [address] Care Team Providers Name Role Phone Unavailable Primary Care Provider Unavailable Allergies Active Allergy Reactions Severity Noted Date Comments Acetaminophen-Calcium Carbonat Swelling High 08/27/2016 Hands Apple Cider Vinegar Rash Low 08/27/2016 Apple Cinnamon Analogues Swelling High 08/27/2016 Throat Medications No known medications Active Problems Problem Noted Date Choledocholithiasis 08/27/2016 Social History Tobacco Use Types Packs/Day Years Used Date Never Smoker Sex Assigned at Date Recorded Not on file Job Start Date Occupation Industry Not on file Not on file Not on file Travel History Travel Start Travel End No recent travel history available. Last Filed Vital Signs Not on file Plan of Treatment Not on file Results Not on fileafter 09/10/2017 Advance Directives For more information, please contact:[address] [phone] Code Status Date Activated Date Inactivated Comments Full Code 08/27/2016 6:32 AM 08/31/2016 1:52 PM This code status was determined by: Patient
--- OUTSIDE RECORDS SUMMARY | 2018-09-11 21:43 | XMS REPORT ---
:1995 [facility] [address] [place] [id number] Care Team Providers Name Role Phone JUAN [...] Comments WHITE BLOOD CELL COUNT (BEAKER) (test fuqq=770) 8.4 K/ L 4.0-10.0 RED BLOOD CELL COUNT (BEAKER) (test cqeg=720) 4.76 M/ L 4.00-5.00 HEMOGLOBIN (BEAKER) (test ijbi=969) 14.0 GM/DL 12.0-15.0 HEMATOCRIT (BEAKER) (test zpqp=888) 43.3 % 36.0-45.0 MEAN CORPUSCULAR VOLUME (BEAKER) (test rdce=542) 91.0 fL 82.0-99.0 MEAN CORPUSCULAR HEMOGLOBIN (BEAKER) (test xjoi=525) 29.5 pg 27.0-33.0 MEAN CORPUSCULAR HEMOGLOBIN CONC (BEAKER) (test nvik=422) 32.4 GM/DL 32.0- 36.0 RED CELL DISTRIBUTION WIDTH (BEAKER) (test hnes=112) 11.5 % 10.3-14.2 PLATELET COUNT (BEAKER) (test dlul=920) 215 K/CU MM 150-430 MEAN PLATELET VOLUME (BEAKER) (test rocc=355) 7.7 fL 6.5-10.5 NUCLEATED RED BLOOD CELLS (BEAKER) (test nquu=823) 0 /100 WBC 0-0 NEUTROPHILS RELATIVE PERCENT (BEAKER) (test gjdv=915) 48 % LYMPHOCYTES RELATIVE PERCENT (BEAKER) (test zmsi=987) 35 % MONOCYTES RELATIVE PERCENT (BEAKER) (test suhs=325) 9 % EOSINOPHILS RELATIVE PERCENT (BEAKER) (test hhzy=079) 7 % BASOPHILS RELATIVE PERCENT (BEAKER) (test qeyd=164) 1 % NEUTROPHILS ABSOLUTE COUNT (BEAKER) (test yoah=135) 4.02 K/ L 1.80-8.00 LYMPHOCYTES ABSOLUTE COUNT (BEAKER) (test ewys=347) 2.96 K/ L 1.48-4.50 MONOCYTES ABSOLUTE COUNT (BEAKER) (test kium=313) 0.78 K/ L 0.00-1.30 EOSINOPHILS ABSOLUTE COUNT (BEAKER) (test kush=120) 0.58 K/ L 0.00-0.50 BASOPHILS ABSOLUTE COUNT (BEAKER) (test hsnz=309) 0.04 K/ L 0.00-0.20 0.00HEPATIC FUNCTION [id number] 06:03:00 Test Item Value Reference Range Comments TOTAL PROTEIN (BEAKER) (test boag=953) 7.6 gm/dL 6.0-8.3 ALBUMIN (BEAKER) (test lnli=4713) 4.4 g/dL 3.5-5.0 BILIRUBIN TOTAL (BEAKER) (test vpwn=861) 1.1 mg/dL 0.2-1.2 BILIRUBIN DIRECT (BEAKER) (test ltgz=663) 0.5 mg/dL 0.1-0.5 ALKALINE PHOSPHATASE (BEAKER) (test sjvs=039) 115 U/L 40-150 AST (SGOT) (BEAKER) (test sxym=780) 34 U/L 5-34 ALT (SGPT) (BEAKER) (test ouxb=291) 151 U/L 6-55 BASIC METABOLIC [id number] 06:03:00 Test Item Value Reference Range Comments SODIUM (BEAKER) (test 139 meq/L 136-145 ysyu=993) POTASSIUM (BEAKER) (test 3.5 meq/L 3.5-5.1 zzwd=733) CHLORIDE (BEAKER) (test 107 meq/L 98-107 hpdw=198) CO2 (BEAKER) (test 17 meq/L 22-29 ukpr=647) BLOOD UREA NITROGEN 5 mg/dL 7-21 (BEAKER) (test ysbe=712) CREATININE (BEAKER) (test 0.65 mg/dL 0.57-1.25 brsq=817) GLUCOSE RANDOM (BEAKER) 72 mg/dL 70-105 (test aigi=849) CALCIUM (BEAKER) (test 9.1 mg/dL 8.4-10.2 ixiu=469) EGFR (BEAKER) (test 119 mL/min/1.73 sq m ESTIMATED GFR IS NOT spxu=1769) ACCURATE CREATININE CLEARANCE IN PREDICTING GLOMERULAR FILTRATION RATE. ESTIMATED GFR IS NOT APPLICABLE FOR DIALYSIS PATIENTS. CBC W/PLT COUNT & AUTO [id number] 08:15:00 Test Item Value Reference Range Comments WHITE BLOOD CELL COUNT (BEAKER) (test vtqj=487) 9.0 K/ L 4.0-10.0 RED BLOOD CELL COUNT (BEAKER) (test acbj=178) 4.58 M/ L 4.00-5.00 HEMOGLOBIN (BEAKER) (test vuwr=182) 14.1 GM/DL 12.0-15.0 HEMATOCRIT (BEAKER) (test tuzc=271) 42.1 % 36.0-45.0 MEAN CORPUSCULAR VOLUME (BEAKER) (test hpwr=685) 92.0 fL 82.0-99.0 MEAN CORPUSCULAR HEMOGLOBIN (BEAKER) (test 30.8 pg 27.0-33.0 pgmb=701) MEAN CORPUSCULAR HEMOGLOBIN CONC (BEAKER) (test 33.5 GM/DL 32.0-36.0 ikdf=958) RED CELL DISTRIBUTION WIDTH (BEAKER) (test 11.3 % 10.3-14.2 cvtx=972) PLATELET COUNT (BEAKER) (test xtzn=589) 181 K/CU MM 150-430 MEAN PLATELET VOLUME (BEAKER) (test ayfi=781) 7.8 fL 6.5-10.5 NUCLEATED RED BLOOD CELLS (BEAKER) (test 0 /100 WBC 0-0 gfsn=233) NEUTROPHILS RELATIVE PERCENT (BEAKER) (test 69 % pype=184) LYMPHOCYTES RELATIVE PERCENT (BEAKER) (test 21 % jxsu=731) MONOCYTES RELATIVE PERCENT (BEAKER) (test 7 % yhgf=485) EOSINOPHILS RELATIVE PERCENT (BEAKER) (test 3 % ujga=657) BASOPHILS RELATIVE PERCENT (BEAKER) (test 1 % afrk=329) NEUTROPHILS ABSOLUTE COUNT (BEAKER) (test 6.24 K/ L 1.80-8.00 thxs=729) LYMPHOCYTES ABSOLUTE COUNT (BEAKER) (test 1.85 K/ L 1.48-4.50 txvb=614) MONOCYTES ABSOLUTE COUNT (BEAKER) (test 0.67 K/ L 0.00-1.30 vafq=653) EOSINOPHILS ABSOLUTE COUNT (BEAKER) (test 0.23 K/ L 0.00-0.50 lrsk=126) BASOPHILS ABSOLUTE COUNT (BEAKER) (test 0.05 K/ L 0.00-0.20 miou=453) 0.00HEPATIC FUNCTION [id number] 06:43:00 Test Item Value Reference Range Comments TOTAL PROTEIN (BEAKER) (test jluq=967) 7.0 gm/dL 6.0-8.3 ALBUMIN (BEAKER) (test toyy=6689) 4.1 g/dL 3.5-5.0 BILIRUBIN TOTAL (BEAKER) (test xzix=306) 1.2 mg/dL 0.2-1.2 BILIRUBIN DIRECT (BEAKER) (test mhyr=730) 0.5 mg/dL 0.1-0.5 ALKALINE PHOSPHATASE (BEAKER) (test kdec=781) 119 U/L 40-150 AST (SGOT) (BEAKER) (test zbyc=688) 50 U/L 5-34 ALT (SGPT) (BEAKER) (test twhf=902) 189 U/L 6-55 BASIC METABOLIC [id number] 06:43:00 Test Item Value Reference Range Comments SODIUM (BEAKER) (test 137 meq/L 136-145 lgmn=250) POTASSIUM (BEAKER) (test 4.1 meq/L 3.5-5.1 stcr=933) CHLORIDE (BEAKER) (test 109 meq/L 98-107 tppd=854) CO2 (BEAKER) (test 14 meq/L 22-29 wugn=286) BLOOD UREA NITROGEN 5 mg/dL 7-21 (BEAKER) (test ezaj=824) CREATININE (BEAKER) (test 0.63 mg/dL 0.57-1.25 ckac=613) GLUCOSE RANDOM (BEAKER) 64 mg/dL 70-105 (test ltnz=302) CALCIUM (BEAKER) (test 8.8 mg/dL 8.4-10.2 iiks=071) EGFR (BEAKER) (test 123 mL/min/1.73 sq m ESTIMATED GFR IS NOT xjvw=3622) ACCURATE CREATININE CLEARANCE IN PREDICTING GLOMERULAR FILTRATION RATE. ESTIMATED GFR IS NOT APPLICABLE FOR DIALYSIS PATIENTS. SCREEN, [id number] 10:31:00 Test Item Value Reference Range Comments TEST URINE (BEAKER) (test kcdn=572) Negative CBC W/PLT COUNT & AUTO [id number] 06:59:00 Test Item Value Reference Range Comments WHITE BLOOD CELL COUNT (BEAKER) (test ksqg=784) 7.0 K/ L 4.0-10.0 RED BLOOD CELL COUNT (BEAKER) (test ymfg=132) 4.35 M/ L 4.00-5.00 HEMOGLOBIN (BEAKER) (test lrad=833) 13.4 GM/DL 12.0-15.0 HEMATOCRIT (BEAKER) (test tohj=630) 40.4 % 36.0-45.0 MEAN CORPUSCULAR VOLUME (BEAKER) (test xdme=078) 92.8 fL 82.0-99.0 MEAN CORPUSCULAR HEMOGLOBIN (BEAKER) (test 30.9 pg 27.0-33.0 hbia=968) MEAN CORPUSCULAR HEMOGLOBIN CONC (BEAKER) (test 33.3 GM/DL 32.0-36.0 tmqd=218) RED CELL DISTRIBUTION WIDTH (BEAKER) (test 11.4 % 10.3-14.2 tlry=034) PLATELET COUNT (BEAKER) (test ofim=988) 160 K/CU MM 150-430 MEAN PLATELET VOLUME (BEAKER) (test grsv=387) 8.0 fL 6.5-10.5 NUCLEATED RED BLOOD CELLS (BEAKER) (test 0 /100 WBC 0-0 tbek=027) NEUTROPHILS RELATIVE PERCENT (BEAKER) (test 53 % fntd=251) LYMPHOCYTES RELATIVE PERCENT (BEAKER) (test 36 % cdzk=056) MONOCYTES RELATIVE PERCENT (BEAKER) (test 7 % brnc=879) EOSINOPHILS RELATIVE PERCENT (BEAKER) (test 4 % vipf=269) BASOPHILS RELATIVE PERCENT (BEAKER) (test 1 % syzk=817) NEUTROPHILS ABSOLUTE COUNT (BEAKER) (test 3.69 K/ L 1.80-8.00 ylrz=920) LYMPHOCYTES ABSOLUTE COUNT (BEAKER) (test 2.51 K/ L 1.48-4.50 dmko=960) MONOCYTES ABSOLUTE COUNT (BEAKER) (test 0.47 K/ L 0.00-1.30 bezo=186) EOSINOPHILS ABSOLUTE COUNT (BEAKER) (test 0.26 K/ L 0.00-0.50 egsw=957) BASOPHILS ABSOLUTE COUNT (BEAKER) (test 0.05 K/ L 0.00-0.20 ojcm=150) 0.00HEPATIC FUNCTION [id number] 06:29:00 Test Item Value Reference Range Comments TOTAL PROTEIN (BEAKER) (test opdq=160) 6.6 gm/dL 6.0-8.3 ALBUMIN (BEAKER) (test zhak=5790) 4.0 g/dL 3.5-5.0 BILIRUBIN TOTAL (BEAKER) (test irpw=293) 1.0 mg/dL 0.2-1.2 BILIRUBIN DIRECT (BEAKER) (test htdl=970) 0.5 mg/dL 0.1-0.5 ALKALINE PHOSPHATASE (BEAKER) (test jvrw=746) 101 U/L 40-150 AST (SGOT) (BEAKER) (test fkzt=127) 51 U/L 5-34 ALT (SGPT) (BEAKER) (test cydq=725) 210 U/L 6-55 BASIC METABOLIC [id number] 06:29:00 Test Item Value Reference Range Comments SODIUM (BEAKER) (test 139 meq/L 136-145 flfq=329) POTASSIUM (BEAKER) (test 3.7 meq/L 3.5-5.1 uixq=180) CHLORIDE (BEAKER) (test 107 meq/L 98-107 islb=027) CO2 (BEAKER) (test 21 meq/L 22-29 wyuc=000) BLOOD UREA NITROGEN 4 mg/dL 7-21 (BEAKER) (test oavi=935) CREATININE (BEAKER) (test 0.62 mg/dL 0.57-1.25 zdrb=542) GLUCOSE RANDOM (BEAKER) 64 mg/dL 70-105 (test dbrj=726) CALCIUM (BEAKER) (test 8.7 mg/dL 8.4-10.2 zrgw=475) EGFR (BEAKER) (test 125 mL/min/1.73 sq m ESTIMATED GFR IS NOT lvgp=6658) ACCURATE CREATININE CLEARANCE IN PREDICTING GLOMERULAR FILTRATION RATE. ESTIMATED GFR IS NOT APPLICABLE FOR DIALYSIS PATIENTS. HEPATIC FUNCTION [id number] 05:02:00 Test Item Value Reference Range Comments TOTAL PROTEIN (BEAKER) (test hcaf=866) 6.0 gm/dL 6.0-8.3 ALBUMIN (BEAKER) (test eauh=1455) 3.5 g/dL 3.5-5.0 BILIRUBIN TOTAL (BEAKER) (test ztcw=482) 0.9 mg/dL 0.2-1.2 BILIRUBIN DIRECT (BEAKER) (test ambk=282) 0.4 mg/dL 0.1-0.5 ALKALINE PHOSPHATASE (BEAKER) (test eead=678) 100 U/L 40-150 AST (SGOT) (BEAKER) (test ghdq=067) 73 U/L 5-34 ALT (SGPT) (BEAKER) (test hmrz=416) 250 U/L 6-55 BASIC METABOLIC [id number] 05:02:00 Test Item Value Reference Range Comments SODIUM (BEAKER) (test 140 meq/L 136-145 vjbu=334) POTASSIUM (BEAKER) (test 3.8 meq/L 3.5-5.1 nqmf=582) CHLORIDE (BEAKER) (test 110 meq/L 98-107 jdik=147) CO2 (BEAKER) (test 22 meq/L 22-29 dzxd=300) BLOOD UREA NITROGEN 4 mg/dL 7-21 (BEAKER) (test wkln=965) CREATININE (BEAKER) (test 0.62 mg/dL 0.57-1.25 amtc=272) GLUCOSE RANDOM (BEAKER) 75 mg/dL 70-105 (test bcdv=115) CALCIUM (BEAKER) (test 8.4 mg/dL 8.4-10.2 ppfx=339) EGFR (BEAKER) (test 125 mL/min/1.73 sq m ESTIMATED GFR IS NOT lnat=4685) ACCURATE CREATININE CLEARANCE IN PREDICTING GLOMERULAR FILTRATION RATE. ESTIMATED GFR IS NOT APPLICABLE FOR DIALYSIS PATIENTS. CBC W/PLT COUNT & AUTO [id number] 04:37:00 Test Item Value Reference Range Comments WHITE BLOOD CELL COUNT (BEAKER) (test nout=840) 7.1 K/ L 4.0-10.0 RED BLOOD CELL COUNT (BEAKER) (test fpqv=225) 3.94 M/ L 4.00-5.00 HEMOGLOBIN (BEAKER) (test lrpp=688) 12.1 GM/DL 12.0-15.0 HEMATOCRIT (BEAKER) (test aidq=469) 36.2 % 36.0-45.0 MEAN CORPUSCULAR VOLUME (BEAKER) (test yxog=624) 91.8 fL 82.0-99.0 MEAN CORPUSCULAR HEMOGLOBIN (BEAKER) (test 30.8 pg 27.0-33.0 oeea=140) MEAN CORPUSCULAR HEMOGLOBIN CONC (BEAKER) (test 33.5 GM/DL 32.0-36.0 tmck=250) RED CELL DISTRIBUTION WIDTH (BEAKER) (test 12.1 % 10.3-14.2 ldgo=465) PLATELET COUNT (BEAKER) (test eiqu=685) 157 K/CU MM 150-430 MEAN PLATELET VOLUME (BEAKER) (test jbyg=087) 7.8 fL 6.5-10.5 NUCLEATED RED BLOOD CELLS (BEAKER) (test 0 /100 WBC 0-0 musl=390) NEUTROPHILS RELATIVE PERCENT (BEAKER) (test 53 % accl=310) LYMPHOCYTES RELATIVE PERCENT (BEAKER) (test 36 % bumg=113) MONOCYTES RELATIVE PERCENT (BEAKER) (test 6 % aega=757) EOSINOPHILS RELATIVE PERCENT (BEAKER) (test 4 % tgnu=426) BASOPHILS RELATIVE PERCENT (BEAKER) (test 1 % gbvv=382) NEUTROPHILS ABSOLUTE COUNT (BEAKER) (test 3.75 K/ L 1.80-8.00 lclq=010) LYMPHOCYTES ABSOLUTE COUNT (BEAKER) (test 2.54 K/ L 1.48-4.50 eezt=211) MONOCYTES ABSOLUTE COUNT (BEAKER) (test 0.44 K/ L 0.00-1.30 eivo=139) EOSINOPHILS ABSOLUTE COUNT (BEAKER) (test 0.27 K/ L 0.00-0.50 qdny=853) BASOPHILS ABSOLUTE COUNT (BEAKER) (test 0.05 K/ L 0.00-0.20 zmrs=932) [id number] 07:40:00 Test Item Value Reference Range Comments LIPASE (BEAKER) (test yopa=991) 8 U/L 8-78 [id number] 07:40:00 Test Item Value Reference Range Comments AMYLASE (BEAKER) (test aqkr=353) 44 U/L 25-125 BASIC METABOLIC [id number] 07:40:00 Test Item Value Reference Range Comments SODIUM (BEAKER) (test 140 meq/L 136-145 bjwi=116) POTASSIUM (BEAKER) (test 3.8 meq/L 3.5-5.1 cjxs=016) CHLORIDE (BEAKER) (test 109 meq/L 98-107 wxqd=737) CO2 (BEAKER) (test 22 meq/L 22-29 tmvr=381) BLOOD UREA NITROGEN 4 mg/dL 7-21 (BEAKER) (test dluo=629) CREATININE (BEAKER) (test 0.63 mg/dL 0.57-1.25 nxln=709) GLUCOSE RANDOM (BEAKER) 94 mg/dL 70-105 (test gukq=054) CALCIUM (BEAKER) (test 8.4 mg/dL 8.4-10.2 efpt=615) EGFR (BEAKER) (test 123 mL/min/1.73 sq m ESTIMATED GFR IS NOT juex=2774) ACCURATE CREATININE CLEARANCE IN PREDICTING GLOMERULAR FILTRATION RATE. ESTIMATED GFR IS NOT APPLICABLE FOR DIALYSIS PATIENTS. HEPATIC FUNCTION [id number] 07:40:00 Test Item Value Reference Range Comments TOTAL PROTEIN (BEAKER) (test rzfl=020) 6.2 gm/dL 6.0-8.3 ALBUMIN (BEAKER) (test unrq=4743) 3.7 g/dL 3.5-5.0 BILIRUBIN TOTAL (BEAKER) (test yhca=149) 0.7 mg/dL 0.2-1.2 BILIRUBIN DIRECT (BEAKER) (test qkdg=822) 0.3 mg/dL 0.1-0.5 ALKALINE PHOSPHATASE (BEAKER) (test zteg=934) 106 U/L 40-150 AST (SGOT) (BEAKER) (test iuka=824) 81 U/L 5-34 ALT (SGPT) (BEAKER) (test ugtz=264) 309 U/L 6-55 CBC W/PLT COUNT & AUTO [id number] 06:56:00 Test Item Value Reference Range Comments WHITE BLOOD CELL COUNT (BEAKER) (test brte=284) 7.3 K/ L 4.0-10.0 RED BLOOD CELL COUNT (BEAKER) (test jyka=229) 3.89 M/ L 4.00-5.00 HEMOGLOBIN (BEAKER) (test bigh=056) 12.3 GM/DL 12.0-15.0 HEMATOCRIT (BEAKER) (test xbqm=074) 36.0 % 36.0-45.0 MEAN CORPUSCULAR VOLUME (BEAKER) (test zmpn=725) 92.4 fL 82.0-99.0 MEAN CORPUSCULAR HEMOGLOBIN (BEAKER) (test 31.5 pg 27.0-33.0 ieea=500) MEAN CORPUSCULAR HEMOGLOBIN CONC (BEAKER) (test 34.1 GM/DL 32.0-36.0 mdnn=744) RED CELL DISTRIBUTION WIDTH (BEAKER) (test 12.5 % 10.3-14.2 tirj=258) PLATELET COUNT (BEAKER) (test cadi=245) 163 K/CU MM 150-430 MEAN PLATELET VOLUME (BEAKER) (test cpyg=395) 7.9 fL 6.5-10.5 NUCLEATED RED BLOOD CELLS (BEAKER) (test 0 /100 WBC 0-0 hddm=122) NEUTROPHILS RELATIVE PERCENT (BEAKER) (test 56 % sdam=965) LYMPHOCYTES RELATIVE PERCENT (BEAKER) (test 33 % aqpd=290) MONOCYTES RELATIVE PERCENT (BEAKER) (test 8 % bopn=400) EOSINOPHILS RELATIVE PERCENT (BEAKER) (test 3 % zfni=938) BASOPHILS RELATIVE PERCENT (BEAKER) (test 1 % poql=800) NEUTROPHILS ABSOLUTE COUNT (BEAKER) (test 4.11 K/ L 1.80-8.00 spzb=017) LYMPHOCYTES ABSOLUTE COUNT (BEAKER) (test 2.39 K/ L 1.48-4.50 rqpn=074) MONOCYTES ABSOLUTE COUNT (BEAKER) (test 0.57 K/ L 0.00-1.30 tgrz=007) EOSINOPHILS ABSOLUTE COUNT (BEAKER) (test 0.19 K/ L 0.00-0.50 hort=899) BASOPHILS ABSOLUTE COUNT (BEAKER) (test 0.05 K/ L 0.00-0.20 sghk=613) [id number] 06:46:00 Test Item Value Reference Range Comments PROTIME (BEAKER) (test wist=414) 15.3 seconds 11.7-14.7 INR (BEAKER) (test natx=268) 1.2 <=5.9 PARTIAL THROMBOPLASTIN TIME (BEAKER) (test 32.9 seconds 22.5-36.0 lwpq=513) RECOMMENDED COUMADIN/WARFARIN INR THERAPY RANGESSTANDARD DOSE: 2.0 - 3.0 Includes: PROPHYLAXIS forvenous thrombosis, systemic embolization; TREATMENT for venous thrombosis and/or pulmonary embolus.HIGH RISK: Target INR is 2.5-3.5 for patients with mechanical heart valves.
[2018-09-11] MEDS ORDERED: KETOROLAC 30 MG/ML INJ ONE (22:49)
[2018-09-11] MEDS ORDERED: CYCLOBENZAPRINE 10 MG TAB ONE (22:49)
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
[2018-09-12 01:11] LABS: Urine Blood NEGATIVE (NEG); Urine Glucose NEGATIVE (NEG); Urine Protein NEGATIVE (NEG)
[2018-09-12 09:18] VITALS: TEMP 97.2
[2018-09-12 09:19] VITALS: BP 140/87; O2SAT 99
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
== END 2018-09-11 23:18 | disposition home or self-care (01) ==
LOC: ER 21:40
DX: M54.2 Cervicalgia (principal); M62.838 Other muscle spasm; V49.00XA Driver injured in collision with unspecified motor vehicles in nontraffic accident, initial encounter; K21.9 Gastro-esophageal reflux disease without esophagitis
CPT/HCPCS: 70450; 72125; 81003; 81025; 96372; 99284

== ENCOUNTER 2018-12-21 07:44 | Emergency (ER) | payer SELFPAY ==
--- OUTSIDE RECORDS SUMMARY | 2018-12-21 07:50 | XMS REPORT | Clinical Summary ---
:1995 Author Organization [facility] Address [address] [place] [address] Care Team Providers Name Role Phone Unavailable [...] Not on file Results Not on fileafter 12/20/2017 Advance Directives For more information, please contact:[address] [phone] Code Status Date Activated Date Inactivated Comments Full Code 08/27/2016 6:32 AM 08/31/2016 1:52 PM This code status was determined by: Patient
--- OUTSIDE RECORDS SUMMARY | 2018-12-21 07:50 | XMS REPORT ---
:1995 [facility] Organization [facility] Address [address] [place] [id number] Care Team Providers Name Role Phone JUAN [...] Comments WHITE BLOOD CELL COUNT (BEAKER) (test ymvj=303) 8.4 K/ L 4.0-10.0 RED BLOOD CELL COUNT (BEAKER) (test exzj=951) 4.76 M/ L 4.00-5.00 HEMOGLOBIN (BEAKER) (test nmpy=758) 14.0 GM/DL 12.0-15.0 HEMATOCRIT (BEAKER) (test skdc=346) 43.3 % 36.0-45.0 MEAN CORPUSCULAR VOLUME (BEAKER) (test uwdf=131) 91.0 fL 82.0-99.0 MEAN CORPUSCULAR HEMOGLOBIN (BEAKER) (test zjys=804) 29.5 pg 27.0-33.0 MEAN CORPUSCULAR HEMOGLOBIN CONC (BEAKER) (test xrrg=205) 32.4 GM/DL 32.0- 36.0 RED CELL DISTRIBUTION WIDTH (BEAKER) (test eyqx=111) 11.5 % 10.3-14.2 PLATELET COUNT (BEAKER) (test emny=610) 215 K/CU MM 150-430 MEAN PLATELET VOLUME (BEAKER) (test vdyx=294) 7.7 fL 6.5-10.5 NUCLEATED RED BLOOD CELLS (BEAKER) (test fxsg=054) 0 /100 WBC 0-0 NEUTROPHILS RELATIVE PERCENT (BEAKER) (test yznr=814) 48 % LYMPHOCYTES RELATIVE PERCENT (BEAKER) (test rckt=487) 35 % MONOCYTES RELATIVE PERCENT (BEAKER) (test cxqu=914) 9 % EOSINOPHILS RELATIVE PERCENT (BEAKER) (test uuwq=839) 7 % BASOPHILS RELATIVE PERCENT (BEAKER) (test kotj=688) 1 % NEUTROPHILS ABSOLUTE COUNT (BEAKER) (test yfpg=276) 4.02 K/ L 1.80-8.00 LYMPHOCYTES ABSOLUTE COUNT (BEAKER) (test jacc=105) 2.96 K/ L 1.48-4.50 MONOCYTES ABSOLUTE COUNT (BEAKER) (test wqdh=652) 0.78 K/ L 0.00-1.30 EOSINOPHILS ABSOLUTE COUNT (BEAKER) (test oylg=154) 0.58 K/ L 0.00-0.50 BASOPHILS ABSOLUTE COUNT (BEAKER) (test ozdp=898) 0.04 K/ L 0.00-0.20 0.00HEPATIC FUNCTION [id number] 06:03:00 Test Item Value Reference Range Comments TOTAL PROTEIN (BEAKER) (test jkrr=891) 7.6 gm/dL 6.0-8.3 ALBUMIN (BEAKER) (test pazs=8200) 4.4 g/dL 3.5-5.0 BILIRUBIN TOTAL (BEAKER) (test urzv=934) 1.1 mg/dL 0.2-1.2 BILIRUBIN DIRECT (BEAKER) (test idvb=618) 0.5 mg/dL 0.1-0.5 ALKALINE PHOSPHATASE (BEAKER) (test dmfk=015) 115 U/L 40-150 AST (SGOT) (BEAKER) (test gwmd=058) 34 U/L 5-34 ALT (SGPT) (BEAKER) (test tuhr=707) 151 U/L 6-55 BASIC METABOLIC [id number] 06:03:00 Test Item Value Reference Range Comments SODIUM (BEAKER) (test 139 meq/L 136-145 gnyv=231) POTASSIUM (BEAKER) (test 3.5 meq/L 3.5-5.1 kvso=561) CHLORIDE (BEAKER) (test 107 meq/L 98-107 asly=431) CO2 (BEAKER) (test 17 meq/L 22-29 ajwx=712) BLOOD UREA NITROGEN 5 mg/dL 7-21 (BEAKER) (test avzs=793) CREATININE (BEAKER) (test 0.65 mg/dL 0.57-1.25 xref=141) GLUCOSE RANDOM (BEAKER) 72 mg/dL 70-105 (test lpas=289) CALCIUM (BEAKER) (test 9.1 mg/dL 8.4-10.2 baiv=663) EGFR (BEAKER) (test 119 mL/min/1.73 sq m ESTIMATED GFR IS NOT obvk=3599) ACCURATE CREATININE CLEARANCE IN PREDICTING GLOMERULAR FILTRATION RATE. ESTIMATED GFR IS NOT APPLICABLE FOR DIALYSIS PATIENTS. CBC W/PLT COUNT & AUTO [id number] 08:15:00 Test Item Value Reference Range Comments WHITE BLOOD CELL COUNT (BEAKER) (test kpzz=230) 9.0 K/ L 4.0-10.0 RED BLOOD CELL COUNT (BEAKER) (test gbiz=788) 4.58 M/ L 4.00-5.00 HEMOGLOBIN (BEAKER) (test koxs=599) 14.1 GM/DL 12.0-15.0 HEMATOCRIT (BEAKER) (test kalg=366) 42.1 % 36.0-45.0 MEAN CORPUSCULAR VOLUME (BEAKER) (test sjzk=975) 92.0 fL 82.0-99.0 MEAN CORPUSCULAR HEMOGLOBIN (BEAKER) (test 30.8 pg 27.0-33.0 yrnd=805) MEAN CORPUSCULAR HEMOGLOBIN CONC (BEAKER) (test 33.5 GM/DL 32.0-36.0 cvug=325) RED CELL DISTRIBUTION WIDTH (BEAKER) (test 11.3 % 10.3-14.2 eilh=915) PLATELET COUNT (BEAKER) (test taon=843) 181 K/CU MM 150-430 MEAN PLATELET VOLUME (BEAKER) (test kkqb=819) 7.8 fL 6.5-10.5 NUCLEATED RED BLOOD CELLS (BEAKER) (test 0 /100 WBC 0-0 iebq=165) NEUTROPHILS RELATIVE PERCENT (BEAKER) (test 69 % rlyy=124) LYMPHOCYTES RELATIVE PERCENT (BEAKER) (test 21 % zcvs=168) MONOCYTES RELATIVE PERCENT (BEAKER) (test 7 % zila=377) EOSINOPHILS RELATIVE PERCENT (BEAKER) (test 3 % rqla=573) BASOPHILS RELATIVE PERCENT (BEAKER) (test 1 % ydlb=689) NEUTROPHILS ABSOLUTE COUNT (BEAKER) (test 6.24 K/ L 1.80-8.00 khaj=460) LYMPHOCYTES ABSOLUTE COUNT (BEAKER) (test 1.85 K/ L 1.48-4.50 hvoq=782) MONOCYTES ABSOLUTE COUNT (BEAKER) (test 0.67 K/ L 0.00-1.30 twhs=031) EOSINOPHILS ABSOLUTE COUNT (BEAKER) (test 0.23 K/ L 0.00-0.50 iilq=695) BASOPHILS ABSOLUTE COUNT (BEAKER) (test 0.05 K/ L 0.00-0.20 latq=070) 0.00HEPATIC FUNCTION [id number] 06:43:00 Test Item Value Reference Range Comments TOTAL PROTEIN (BEAKER) (test bdoi=277) 7.0 gm/dL 6.0-8.3 ALBUMIN (BEAKER) (test qiuw=1706) 4.1 g/dL 3.5-5.0 BILIRUBIN TOTAL (BEAKER) (test hfmh=252) 1.2 mg/dL 0.2-1.2 BILIRUBIN DIRECT (BEAKER) (test wdtp=988) 0.5 mg/dL 0.1-0.5 ALKALINE PHOSPHATASE (BEAKER) (test ezgw=777) 119 U/L 40-150 AST (SGOT) (BEAKER) (test dumt=009) 50 U/L 5-34 ALT (SGPT) (BEAKER) (test oamk=868) 189 U/L 6-55 BASIC METABOLIC [id number] 06:43:00 Test Item Value Reference Range Comments SODIUM (BEAKER) (test 137 meq/L 136-145 gcpf=207) POTASSIUM (BEAKER) (test 4.1 meq/L 3.5-5.1 kneq=794) CHLORIDE (BEAKER) (test 109 meq/L 98-107 ecjq=965) CO2 (BEAKER) (test 14 meq/L 22-29 dxih=293) BLOOD UREA NITROGEN 5 mg/dL 7-21 (BEAKER) (test flej=565) CREATININE (BEAKER) (test 0.63 mg/dL 0.57-1.25 iaau=322) GLUCOSE RANDOM (BEAKER) 64 mg/dL 70-105 (test owfn=176) CALCIUM (BEAKER) (test 8.8 mg/dL 8.4-10.2 uxcl=645) EGFR (BEAKER) (test 123 mL/min/1.73 sq m ESTIMATED GFR IS NOT yjgu=6600) ACCURATE CREATININE CLEARANCE IN PREDICTING GLOMERULAR FILTRATION RATE. ESTIMATED GFR IS NOT APPLICABLE FOR DIALYSIS PATIENTS. SCREEN, [id number] 10:31:00 Test Item Value Reference Range Comments TEST URINE (BEAKER) (test xsxu=754) Negative CBC W/PLT COUNT & AUTO [id number] 06:59:00 Test Item Value Reference Range Comments WHITE BLOOD CELL COUNT (BEAKER) (test ierz=730) 7.0 K/ L 4.0-10.0 RED BLOOD CELL COUNT (BEAKER) (test qiqa=453) 4.35 M/ L 4.00-5.00 HEMOGLOBIN (BEAKER) (test kyai=335) 13.4 GM/DL 12.0-15.0 HEMATOCRIT (BEAKER) (test hycl=626) 40.4 % 36.0-45.0 MEAN CORPUSCULAR VOLUME (BEAKER) (test ziak=765) 92.8 fL 82.0-99.0 MEAN CORPUSCULAR HEMOGLOBIN (BEAKER) (test 30.9 pg 27.0-33.0 qkit=780) MEAN CORPUSCULAR HEMOGLOBIN CONC (BEAKER) (test 33.3 GM/DL 32.0-36.0 qdni=241) RED CELL DISTRIBUTION WIDTH (BEAKER) (test 11.4 % 10.3-14.2 onqe=244) PLATELET COUNT (BEAKER) (test jhge=726) 160 K/CU MM 150-430 MEAN PLATELET VOLUME (BEAKER) (test bzuq=896) 8.0 fL 6.5-10.5 NUCLEATED RED BLOOD CELLS (BEAKER) (test 0 /100 WBC 0-0 gwyj=215) NEUTROPHILS RELATIVE PERCENT (BEAKER) (test 53 % sdzc=122) LYMPHOCYTES RELATIVE PERCENT (BEAKER) (test 36 % tzvt=118) MONOCYTES RELATIVE PERCENT (BEAKER) (test 7 % hvoj=536) EOSINOPHILS RELATIVE PERCENT (BEAKER) (test 4 % huvw=565) BASOPHILS RELATIVE PERCENT (BEAKER) (test 1 % vded=149) NEUTROPHILS ABSOLUTE COUNT (BEAKER) (test 3.69 K/ L 1.80-8.00 onmd=429) LYMPHOCYTES ABSOLUTE COUNT (BEAKER) (test 2.51 K/ L 1.48-4.50 kqrs=522) MONOCYTES ABSOLUTE COUNT (BEAKER) (test 0.47 K/ L 0.00-1.30 wmfq=894) EOSINOPHILS ABSOLUTE COUNT (BEAKER) (test 0.26 K/ L 0.00-0.50 jidh=071) BASOPHILS ABSOLUTE COUNT (BEAKER) (test 0.05 K/ L 0.00-0.20 zmus=137) 0.00HEPATIC FUNCTION [id number] 06:29:00 Test Item Value Reference Range Comments TOTAL PROTEIN (BEAKER) (test kesl=054) 6.6 gm/dL 6.0-8.3 ALBUMIN (BEAKER) (test qunb=8651) 4.0 g/dL 3.5-5.0 BILIRUBIN TOTAL (BEAKER) (test hlct=625) 1.0 mg/dL 0.2-1.2 BILIRUBIN DIRECT (BEAKER) (test erpa=981) 0.5 mg/dL 0.1-0.5 ALKALINE PHOSPHATASE (BEAKER) (test crfg=611) 101 U/L 40-150 AST (SGOT) (BEAKER) (test gzvj=635) 51 U/L 5-34 ALT (SGPT) (BEAKER) (test wvnk=613) 210 U/L 6-55 BASIC METABOLIC [id number] 06:29:00 Test Item Value Reference Range Comments SODIUM (BEAKER) (test 139 meq/L 136-145 tlts=750) POTASSIUM (BEAKER) (test 3.7 meq/L 3.5-5.1 nray=760) CHLORIDE (BEAKER) (test 107 meq/L 98-107 gnsk=328) CO2 (BEAKER) (test 21 meq/L 22-29 wuoo=385) BLOOD UREA NITROGEN 4 mg/dL 7-21 (BEAKER) (test jpjf=896) CREATININE (BEAKER) (test 0.62 mg/dL 0.57-1.25 vmcv=144) GLUCOSE RANDOM (BEAKER) 64 mg/dL 70-105 (test loax=384) CALCIUM (BEAKER) (test 8.7 mg/dL 8.4-10.2 gwfy=137) EGFR (BEAKER) (test 125 mL/min/1.73 sq m ESTIMATED GFR IS NOT nvze=4319) ACCURATE CREATININE CLEARANCE IN PREDICTING GLOMERULAR FILTRATION RATE. ESTIMATED GFR IS NOT APPLICABLE FOR DIALYSIS PATIENTS. HEPATIC FUNCTION [id number] 05:02:00 Test Item Value Reference Range Comments TOTAL PROTEIN (BEAKER) (test uyxy=975) 6.0 gm/dL 6.0-8.3 ALBUMIN (BEAKER) (test yarq=2081) 3.5 g/dL 3.5-5.0 BILIRUBIN TOTAL (BEAKER) (test imkr=700) 0.9 mg/dL 0.2-1.2 BILIRUBIN DIRECT (BEAKER) (test yidu=279) 0.4 mg/dL 0.1-0.5 ALKALINE PHOSPHATASE (BEAKER) (test svkf=805) 100 U/L 40-150 AST (SGOT) (BEAKER) (test uzud=945) 73 U/L 5-34 ALT (SGPT) (BEAKER) (test ndxp=967) 250 U/L 6-55 BASIC METABOLIC [id number] 05:02:00 Test Item Value Reference Range Comments SODIUM (BEAKER) (test 140 meq/L 136-145 kyqa=954) POTASSIUM (BEAKER) (test 3.8 meq/L 3.5-5.1 dcbj=114) CHLORIDE (BEAKER) (test 110 meq/L 98-107 ldnu=702) CO2 (BEAKER) (test 22 meq/L 22-29 aevn=967) BLOOD UREA NITROGEN 4 mg/dL 7-21 (BEAKER) (test euuy=258) CREATININE (BEAKER) (test 0.62 mg/dL 0.57-1.25 mpga=490) GLUCOSE RANDOM (BEAKER) 75 mg/dL 70-105 (test owch=299) CALCIUM (BEAKER) (test 8.4 mg/dL 8.4-10.2 qjwj=563) EGFR (BEAKER) (test 125 mL/min/1.73 sq m ESTIMATED GFR IS NOT sdnk=5726) ACCURATE CREATININE CLEARANCE IN PREDICTING GLOMERULAR FILTRATION RATE. ESTIMATED GFR IS NOT APPLICABLE FOR DIALYSIS PATIENTS. CBC W/PLT COUNT & AUTO [id number] 04:37:00 Test Item Value Reference Range Comments WHITE BLOOD CELL COUNT (BEAKER) (test jjax=616) 7.1 K/ L 4.0-10.0 RED BLOOD CELL COUNT (BEAKER) (test yibh=189) 3.94 M/ L 4.00-5.00 HEMOGLOBIN (BEAKER) (test vdgw=073) 12.1 GM/DL 12.0-15.0 HEMATOCRIT (BEAKER) (test ojxh=820) 36.2 % 36.0-45.0 MEAN CORPUSCULAR VOLUME (BEAKER) (test cnbq=255) 91.8 fL 82.0-99.0 MEAN CORPUSCULAR HEMOGLOBIN (BEAKER) (test 30.8 pg 27.0-33.0 oahv=001) MEAN CORPUSCULAR HEMOGLOBIN CONC (BEAKER) (test 33.5 GM/DL 32.0-36.0 pkkq=611) RED CELL DISTRIBUTION WIDTH (BEAKER) (test 12.1 % 10.3-14.2 ltlv=343) PLATELET COUNT (BEAKER) (test kkwn=975) 157 K/CU MM 150-430 MEAN PLATELET VOLUME (BEAKER) (test tsye=479) 7.8 fL 6.5-10.5 NUCLEATED RED BLOOD CELLS (BEAKER) (test 0 /100 WBC 0-0 yywd=904) NEUTROPHILS RELATIVE PERCENT (BEAKER) (test 53 % wtaf=440) LYMPHOCYTES RELATIVE PERCENT (BEAKER) (test 36 % bljo=526) MONOCYTES RELATIVE PERCENT (BEAKER) (test 6 % poga=666) EOSINOPHILS RELATIVE PERCENT (BEAKER) (test 4 % vcyz=574) BASOPHILS RELATIVE PERCENT (BEAKER) (test 1 % ncgq=194) NEUTROPHILS ABSOLUTE COUNT (BEAKER) (test 3.75 K/ L 1.80-8.00 bbkm=097) LYMPHOCYTES ABSOLUTE COUNT (BEAKER) (test 2.54 K/ L 1.48-4.50 bjly=562) MONOCYTES ABSOLUTE COUNT (BEAKER) (test 0.44 K/ L 0.00-1.30 tqml=524) EOSINOPHILS ABSOLUTE COUNT (BEAKER) (test 0.27 K/ L 0.00-0.50 ptmc=430) BASOPHILS ABSOLUTE COUNT (BEAKER) (test 0.05 K/ L 0.00-0.20 dsrs=089) [id number] 07:40:00 Test Item Value Reference Range Comments LIPASE (BEAKER) (test qwdo=804) 8 U/L 8-78 [id number] 07:40:00 Test Item Value Reference Range Comments AMYLASE (BEAKER) (test sgwb=600) 44 U/L 25-125 BASIC METABOLIC [id number] 07:40:00 Test Item Value Reference Range Comments SODIUM (BEAKER) (test 140 meq/L 136-145 zxgr=470) POTASSIUM (BEAKER) (test 3.8 meq/L 3.5-5.1 rbts=293) CHLORIDE (BEAKER) (test 109 meq/L 98-107 kpgd=105) CO2 (BEAKER) (test 22 meq/L 22-29 ytbf=092) BLOOD UREA NITROGEN 4 mg/dL 7-21 (BEAKER) (test ekxx=307) CREATININE (BEAKER) (test 0.63 mg/dL 0.57-1.25 jdzu=569) GLUCOSE RANDOM (BEAKER) 94 mg/dL 70-105 (test ltyx=668) CALCIUM (BEAKER) (test 8.4 mg/dL 8.4-10.2 vkdb=908) EGFR (BEAKER) (test 123 mL/min/1.73 sq m ESTIMATED GFR IS NOT vkbc=6553) ACCURATE CREATININE CLEARANCE IN PREDICTING GLOMERULAR FILTRATION RATE. ESTIMATED GFR IS NOT APPLICABLE FOR DIALYSIS PATIENTS. HEPATIC FUNCTION [id number] 07:40:00 Test Item Value Reference Range Comments TOTAL PROTEIN (BEAKER) (test fddc=601) 6.2 gm/dL 6.0-8.3 ALBUMIN (BEAKER) (test zqtc=6719) 3.7 g/dL 3.5-5.0 BILIRUBIN TOTAL (BEAKER) (test aqfj=630) 0.7 mg/dL 0.2-1.2 BILIRUBIN DIRECT (BEAKER) (test tstx=434) 0.3 mg/dL 0.1-0.5 ALKALINE PHOSPHATASE (BEAKER) (test qsny=771) 106 U/L 40-150 AST (SGOT) (BEAKER) (test yozu=410) 81 U/L 5-34 ALT (SGPT) (BEAKER) (test vbvh=747) 309 U/L 6-55 CBC W/PLT COUNT & AUTO [id number] 06:56:00 Test Item Value Reference Range Comments WHITE BLOOD CELL COUNT (BEAKER) (test vloi=505) 7.3 K/ L 4.0-10.0 RED BLOOD CELL COUNT (BEAKER) (test fzxu=334) 3.89 M/ L 4.00-5.00 HEMOGLOBIN (BEAKER) (test ohtc=961) 12.3 GM/DL 12.0-15.0 HEMATOCRIT (BEAKER) (test ifxe=910) 36.0 % 36.0-45.0 MEAN CORPUSCULAR VOLUME (BEAKER) (test sbyy=000) 92.4 fL 82.0-99.0 MEAN CORPUSCULAR HEMOGLOBIN (BEAKER) (test 31.5 pg 27.0-33.0 yzpf=281) MEAN CORPUSCULAR HEMOGLOBIN CONC (BEAKER) (test 34.1 GM/DL 32.0-36.0 wein=350) RED CELL DISTRIBUTION WIDTH (BEAKER) (test 12.5 % 10.3-14.2 qvnx=884) PLATELET COUNT (BEAKER) (test emag=610) 163 K/CU MM 150-430 MEAN PLATELET VOLUME (BEAKER) (test fmez=227) 7.9 fL 6.5-10.5 NUCLEATED RED BLOOD CELLS (BEAKER) (test 0 /100 WBC 0-0 swie=063) NEUTROPHILS RELATIVE PERCENT (BEAKER) (test 56 % jchf=738) LYMPHOCYTES RELATIVE PERCENT (BEAKER) (test 33 % jwst=716) MONOCYTES RELATIVE PERCENT (BEAKER) (test 8 % nopc=166) EOSINOPHILS RELATIVE PERCENT (BEAKER) (test 3 % ypoj=612) BASOPHILS RELATIVE PERCENT (BEAKER) (test 1 % gytn=114) NEUTROPHILS ABSOLUTE COUNT (BEAKER) (test 4.11 K/ L 1.80-8.00 ldvp=358) LYMPHOCYTES ABSOLUTE COUNT (BEAKER) (test 2.39 K/ L 1.48-4.50 bvpp=978) MONOCYTES ABSOLUTE COUNT (BEAKER) (test 0.57 K/ L 0.00-1.30 ejlc=283) EOSINOPHILS ABSOLUTE COUNT (BEAKER) (test 0.19 K/ L 0.00-0.50 nlxu=361) BASOPHILS ABSOLUTE COUNT (BEAKER) (test 0.05 K/ L 0.00-0.20 mbax=258) [id number] 06:46:00 Test Item Value Reference Range Comments PROTIME (BEAKER) (test zflk=903) 15.3 seconds 11.7-14.7 INR (BEAKER) (test absn=114) 1.2 <=5.9 PARTIAL THROMBOPLASTIN TIME (BEAKER) (test 32.9 seconds 22.5-36.0 rszk=142) RECOMMENDED COUMADIN/WARFARIN INR THERAPY RANGESSTANDARD DOSE: 2.0 - 3.0 Includes: PROPHYLAXIS forvenous thrombosis, systemic embolization; TREATMENT for venous thrombosis and/or pulmonary embolus.HIGH RISK: Target INR is 2.5-3.5 for patients with mechanical heart valves.
[2018-12-21 10:05] LABS: Urine Blood NEGATIVE (NEG); Urine Glucose NEGATIVE (NEG); Urine Protein TRACE (NEG); Urine Specific Gravity 1.025 (1.005-1.030); Urine pH 5.5 (5.0-7.0)
[2018-12-21 10:14] LABS: Urine Bacteria 20-50 /HPF (<20); Urine Culture Reflex Order NOT NEEDED; Urine RBC <5 /HPF (NONE SEEN)
--- NOTE | 2018-12-21 10:24 | ER ---
Nurse's Notes [facility] Name: Marcy Flores Age: 23 yrs Sex: Female : 1995 Arrival Date: 12/21/2018 Time: 07:47 Bed 15 Private MD: Diagnosis: Urinary tract infection, site not specified Presentation: 12/21 08:10 Presenting complaint: Patient states: N/V/D since Monday, also reports LLQ pain and ph fever TMAX 100, pt also reports that she has been experiencing intermittent hives to legs and arms x 2 months w/ unknown cause. Transition of care: patient was not received from another setting of care. Onset of symptoms was December 21, 2018. Risk Assessment: Do you want to hurt yourself or someone else? Patient reports no desire to harm self or others. Initial Sepsis Screen: Does the patient meet any 2 criteria? No. Patient's initial sepsis screen is negative. Does the patient have a suspected source of infection? No. Patient's initial sepsis screen is negative. Care prior to arrival: None. 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 - Social history:: Smoking status: Patient/guardian denies using tobacco. - Ebola Screening: : No symptoms or risks identified at this time. Screenin:02 Abuse screen: Denies threats or abuse. Denies injuries from another. Nutritional ph screening: No deficits noted. Tuberculosis screening: No symptoms or risk factors identified. Fall Risk None identified. Assessment: 09:01 General: Appears in no apparent distress. comfortable, slender, well groomed, Behavior ph is calm, cooperative, appropriate for age. Pain: Complains of pain in left lower quadrant. Neuro: Level of Consciousness is awake, alert, obeys commands, Oriented to person, place, time, situation. Cardiovascular: Capillary refill < 3 seconds in bilateral fingers Patient's skin is warm and dry. Respiratory: Airway is patent Respiratory effort is even, unlabored, Respiratory pattern is regular, symmetrical. GI: Abdomen is non-distended, Bowel sounds present X 4 quads. Abd is soft X 4 quads Abdomen is tender to palpation in left lower quadrant Reports lower abdominal pain, diarrhea, nausea, vomiting. : Reports burning with urination. Derm: Skin is intact, Skin is pink, warm \T\ dry. 10:00 Reassessment: Patient appears in no apparent distress at this time. Patient and/or ph family updated on plan of care and expected duration. Pain level reassessed. Patient is alert, oriented x 3, equal unlabored respirations, skin warm/dry/pink. Vital Signs: 08:13 BP 121 / 89; Pulse 71; Resp 18; Temp 97.7; Pulse Ox 100% on R/A; Weight 68.04 kg; ph Height 4 ft. 10 in. (147.32 cm); Pain 4/10; 09:01 BP 119 / 71; Pulse 86; Resp 15; Temp 97.8(TE); Pulse Ox 100% ; mh5 10:00 BP 105 / 72; Pulse 57; Resp 15; Temp 98.0; Pulse Ox 100% on R/A; mh5 10:58 BP 110 / 68; Pulse 64; Resp 18; Temp 97.9(TE); Pulse Ox 100% on R/A; ph 08:13 Body Mass Index 31.35 (68.04 kg, 147.32 cm) ph ED Course: 07:47 Patient arrived in ED. as 08:05 Tarsha Zhong FNP-C [facility] snw 08:05 Siddhartha Harris MD is Attending Physician. snw 08:09 Ella Moeller, ROSMERY is Primary Nurse. ph 08:12 Triage completed. ph 08:14 Arm band placed on Patient placed in an exam room, on a stretcher. ph 08:59 Patient has correct armband on for positive identification. Bed in low position. Call [facility] light in reach. Pillow given. Pulse ox on. NIBP on. 08:59 Strep Sent. 5 08:59 Urine Culture Sent. [facility] 09:00 Urine Microscopic Only Sent. [facility] 09:33 Urine --Ancillary (enter results) Sent. [facility] 09:33 Urine Dipstick--Ancillary (enter results) Sent. [facility] 11:00 No provider procedures requiring assistance completed. Patient did not have IV access ph during this emergency room visit. Administered Medications: 10:57 Drug: Phenergan 25 mg Route: PO; ph 10:57 Follow up: Response: No adverse reaction; Medication administered at discharge. ph 10:57 Drug: Flagyl 500 mg Route: PO; ph 10:58 Follow up: Response: No adverse reaction; Medication administered at discharge. ph 10:57 Drug: Cipro 500 mg Route: PO; ph 10:58 Follow up: Response: No adverse reaction; Medication administered at discharge. ph Outcome: 10:22 Discharge ordered by . lisa 11:00 Discharged to home ambulatory. ph 11:00 Condition: good 11:00 Discharge instructions given to patient, Instructed on discharge instructions, follow up and referral plans. medication usage, Demonstrated understanding of instructions, follow-up care, medications, Prescriptions given X 4. 11:01 Patient left the ED. Signatures: Tarsha Zhong, SAND MILL OPERATOR CORE SAND-C SAND MILL OPERATOR CORE SAND-Elenita Edmond Patricia, RN RN Lexi Mcmillan [facility]
--- NOTE | 2018-12-21 10:24 | EDPHYS ---
Physician Documentation [facility] Name: Marcy Flores Age: 23 yrs Sex: Female : 1995 Arrival Date: 12/21/2018 Time: 07:47 Bed 15 Private MD: ED Physician Siddhartha Harris HPI: 12/21 08:42 This 23 yrs old Female presents to ER via Ambulatory with complaints of snw Vomiting/Diarrhea, Headache. 08:42 The patient presents to the emergency department with nausea, vomiting, diarrhea. snw Onset: The symptoms/episode began/occurred gradually, 1 week(s) ago, and became persistent. The symptoms are aggravated by nothing. Associated signs and symptoms: Pertinent positives: abdominal pain, anorexia, diarrhea, nausea, vomiting, hives, Pertinent negatives: fever. Severity of symptoms: At their worst the symptoms were mild moderate in the emergency department the symptoms have improved mildly. It is unknown whether or not the patient has had similar symptoms in the past. The patient has not recently seen a physician, and does not have an established primary care provider. 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 - Social history:: Smoking status: Patient/guardian denies using tobacco. - Ebola Screening: : No symptoms or risks identified at this time. ROS: 08:42 Constitutional: Negative for fever, chills, and weight loss, Eyes: Negative for injury, snw pain, redness, and discharge, ENT: Negative for injury, pain, and discharge, Neck: Negative for injury, pain, and swelling, Cardiovascular: Negative for chest pain, palpitations, and edema, Respiratory: Negative for shortness of breath, cough, wheezing, and pleuritic chest pain, Back: Negative for injury and pain, : Negative for injury, bleeding, discharge, and swelling, MS/Extremity: Negative for injury and deformity, Skin: Negative for injury, rash, and discoloration, Neuro: Negative for headache, weakness, numbness, tingling, and seizure. 08:42 Abdomen/GI: Positive for abdominal pain, nausea, vomiting, and diarrhea. Exam: 08:40 Constitutional: This is a well developed, well nourished patient who is awake, alert, snw and in no acute distress. Head/Face: Normocephalic, atraumatic. Eyes: Pupils equal round and reactive to light, extra-ocular motions intact. Lids and lashes normal. Conjunctiva and sclera are non-icteric and not injected. Cornea within normal limits. Periorbital areas with no swelling, redness, or edema. ENT: Nares patent. No nasal discharge, no septal abnormalities noted. Tympanic membranes are normal and external auditory canals are clear. Oropharynx with no redness, swelling, or masses, exudates, or evidence of obstruction, uvula midline. Mucous membranes moist. Neck: Trachea midline, no thyromegaly or masses palpated, and no cervical lymphadenopathy. Supple, full range of motion without nuchal rigidity, or vertebral point tenderness. No Meningismus. Chest/axilla: Normal chest wall appearance and motion. Nontender with no deformity. No lesions are appreciated. Cardiovascular: Regular rate and rhythm with a normal S1 and S2. No gallops, murmurs, or rubs. Normal PMI, no JVD. No pulse deficits. Respiratory: Lungs have equal breath sounds bilaterally, clear to auscultation and percussion. No rales, rhonchi or wheezes noted. No increased work of breathing, no retractions or nasal flaring. Back: No spinal tenderness. No costovertebral tenderness. Full range of motion. Skin: Warm, dry with normal turgor. Normal color with no rashes, no lesions, and no evidence of cellulitis. MS/ Extremity: Pulses equal, no cyanosis. Neurovascular intact. Full, normal range of motion. Neuro: Awake and alert, GCS 15, oriented to person, place, time, and situation. Cranial nerves II-XII grossly intact. Motor strength 5/5 in all extremities. Sensory grossly intact. Cerebellar exam normal. Normal gait. Psych: Awake, alert, with orientation to person, place and time. Behavior, mood, and affect are within normal limits. 08:40 Abdomen/GI: Inspection: abdomen appears normal, Bowel sounds: hyperactive, in all quadrants, Palpation: mild abdominal tenderness, in the left lower quadrant. Vital Signs: 08:13 BP 121 / 89; Pulse 71; Resp 18; Temp 97.7; Pulse Ox 100% on R/A; Weight 68.04 kg; ph Height 4 ft. 10 in. (147.32 cm); Pain 4/10; 09:01 BP 119 / 71; Pulse 86; Resp 15; Temp 97.8(TE); Pulse Ox 100% ; mh5 10:00 BP 105 / 72; Pulse 57; Resp 15; Temp 98.0; Pulse Ox 100% on R/A; mh5 10:58 BP 110 / 68; Pulse 64; Resp 18; Temp 97.9(TE); Pulse Ox 100% on R/A; ph 08:13 Body Mass Index 31.35 (68.04 kg, 147.32 cm) ph MDM: 08:06 Patient medically screened. rafiq 10:25 Data reviewed: vital signs, nurses notes. Data interpreted: Pulse oximetry: on room air snw is 100 %. Interpretation: normal. Counseling: I had a detailed discussion with the patient and/or guardian regarding: the historical points, exam findings, and any diagnostic results supporting the discharge/admit diagnosis, lab results, the need for outpatient follow up, to return to the emergency department if symptoms worsen or persist or if there are any questions or concerns that arise at home. Special discussion: Based on the patient's Hx, exam, and Dx evaluation, there is no indication for emergent surgery or inpatient Tx. It is understood by the patient/guardian that if the Sx's persist or worsen they need to return immediately for re-evaluation. Based on the history and exam findings, there is no indication for further emergent testing or inpatient evaluation. I discussed with the patient/guardian the need to see the primary care provider for further evaluation of the symptoms. 12/21 08:26 Order name: Urine Culture snw 12/21 08:26 Order name: Urine Microscopic Only snw 12/21 08:45 Order name: Strep snw 12/21 09:09 Order name: Urine Dipstick--Ancillary (enter results) bd 12/21 09:09 Order name: Urine --Ancillary (enter results) bd 12/21 09:45 Order name: Group A Streptococcus Rapid Sc; Complete Time: 10:17 EDMS 09/06 08:26 Order name: Urine Dipstick-Ancillary (obtain specimen); Complete Time: 09:00 snw 12/21 10:07 Order name: Urine --Ancillary; Complete Time: 10:17 EDMS 12/21 10:07 Order name: Urine Dipstick-Ancillary; Complete Time: 10:17 EDMS 12/21 10:16 Order name: Urine Microscopic Only EDMS Administered Medications: 10:57 Drug: Phenergan 25 mg Route: PO; ph 10:57 Follow up: Response: No adverse reaction; Medication administered at discharge. ph 10:57 Drug: Flagyl 500 mg Route: PO; ph 10:58 Follow up: Response: No adverse reaction; Medication administered at discharge. ph 10:57 Drug: Cipro 500 mg Route: PO; ph 10:58 Follow up: Response: No adverse reaction; Medication administered at discharge. ph Disposition: 12:03 Co-signature as Attending Physician, Siddhartha Harris MD I agree with the assessment and rafiq plan of care. Disposition: 12/21/18 10:22 Discharged to Home. Impression: Urinary tract infection, site not specified. - Condition is Stable. - Discharge Instructions: Hives, Urinary Tract Infection, Adult, Rehydration, Adult, Colitis. - Prescriptions for Flagyl 500 mg Oral Tablet - take 1 tablet by ORAL route every 12 hours for 7 days; 14 tablet. Zyrtec 10 mg Oral Tablet - take 1 tablet by ORAL route once daily As needed; 20 tablet. Cipro 500 mg Oral Tablet - take 1 tablet by ORAL route every 12 hours for 7 days; 14 tablet. Pepcid 20 mg Oral Tablet - take 1 tablet by ORAL route once daily; 20 tablet. - Work release form, Medication Reconciliation Form, Thank You Letter, Antibiotic Education, Prescription Opioid Use form. - Follow up: Private Physician; When: 2 - 3 days; Reason: Recheck today's complaints, Continuance of care, Re-evaluation by your physician. Follow up: Emergency Department; When: As needed; Reason: Worsening of condition. Signatures: Dispatcher [employer] Siddhartha Ding MD MD cha Therrien, Shelly, RETAIL BANKING MANAGER-C RETAIL BANKING MANAGER-Ella Herron RN RN ph Corrections: (The following items were deleted from the chart) 11:01 10:22 12/21/2018 10:22 Discharged to Home. Impression: Urinary tract infection, site ph not specified. Condition is Stable. Forms are Medication Reconciliation Form, Thank You Letter, Antibiotic Education, Prescription Opioid Use. Follow up: Private Physician; When: 2 - 3 days; Reason: Recheck today's complaints, Continuance of care, Re-evaluation by your physician. Follow up: Emergency Department; When: As needed; Reason: Worsening of condition. snw
[2018-12-21] MEDS ORDERED: PROMETHAZINE 25 MG TABLET ONE (10:53)
[2018-12-21] MEDS ORDERED: CIPROFLOXACIN HCL 500 MG TAB ONE (10:53)
[2018-12-21] MEDS ORDERED: metroNIDAZOLE 500 MG TABLET ONE (10:53)
[2018-12-21 11:29] VITALS: O2SAT 100
[2018-12-21 11:33] VITALS: BP 110/68; TEMP 97.9
== END 2018-12-21 11:01 | disposition home or self-care (01) ==
LOC: ER 07:44
DX: N39.0 Urinary tract infection, site not specified (principal); Z91.018 Allergy to other foods
CPT/HCPCS: 81003; 81015; 81025; 87070; 87081; 87086; 87088; 99284

== ENCOUNTER 2019-06-07 08:14 | Emergency (ER) | payer SELFPAY ==
--- OUTSIDE RECORDS SUMMARY | 2019-06-07 08:17 | XMS REPORT ---
:1995 [facility] Address [address] [place] [id number] Care Team Providers Name Role Phone JUAN [...] Comments WHITE BLOOD CELL COUNT (BEAKER) (test tnmw=399) 8.4 K/ L 4.0-10.0 RED BLOOD CELL COUNT (BEAKER) (test pedp=285) 4.76 M/ L 4.00-5.00 HEMOGLOBIN (BEAKER) (test toxg=161) 14.0 GM/DL 12.0-15.0 HEMATOCRIT (BEAKER) (test yjau=561) 43.3 % 36.0-45.0 MEAN CORPUSCULAR VOLUME (BEAKER) (test puhd=593) 91.0 fL 82.0-99.0 MEAN CORPUSCULAR HEMOGLOBIN (BEAKER) (test unvc=613) 29.5 pg 27.0-33.0 MEAN CORPUSCULAR HEMOGLOBIN CONC (BEAKER) (test cspl=066) 32.4 GM/DL 32.0- 36.0 RED CELL DISTRIBUTION WIDTH (BEAKER) (test yrmo=150) 11.5 % 10.3-14.2 PLATELET COUNT (BEAKER) (test xufs=721) 215 K/CU MM 150-430 MEAN PLATELET VOLUME (BEAKER) (test vdlg=329) 7.7 fL 6.5-10.5 NUCLEATED RED BLOOD CELLS (BEAKER) (test gziw=658) 0 /100 WBC 0-0 NEUTROPHILS RELATIVE PERCENT (BEAKER) (test jziq=809) 48 % LYMPHOCYTES RELATIVE PERCENT (BEAKER) (test hoxb=510) 35 % MONOCYTES RELATIVE PERCENT (BEAKER) (test nico=118) 9 % EOSINOPHILS RELATIVE PERCENT (BEAKER) (test fhau=391) 7 % BASOPHILS RELATIVE PERCENT (BEAKER) (test smvg=978) 1 % NEUTROPHILS ABSOLUTE COUNT (BEAKER) (test shke=384) 4.02 K/ L 1.80-8.00 LYMPHOCYTES ABSOLUTE COUNT (BEAKER) (test xizh=177) 2.96 K/ L 1.48-4.50 MONOCYTES ABSOLUTE COUNT (BEAKER) (test vnib=579) 0.78 K/ L 0.00-1.30 EOSINOPHILS ABSOLUTE COUNT (BEAKER) (test uqrm=888) 0.58 K/ L 0.00-0.50 BASOPHILS ABSOLUTE COUNT (BEAKER) (test vcui=232) 0.04 K/ L 0.00-0.20 0.00HEPATIC FUNCTION [id number] 06:03:00 Test Item Value Reference Range Comments TOTAL PROTEIN (BEAKER) (test olvl=825) 7.6 gm/dL 6.0-8.3 ALBUMIN (BEAKER) (test ewnd=3732) 4.4 g/dL 3.5-5.0 BILIRUBIN TOTAL (BEAKER) (test fgob=055) 1.1 mg/dL 0.2-1.2 BILIRUBIN DIRECT (BEAKER) (test glbd=760) 0.5 mg/dL 0.1-0.5 ALKALINE PHOSPHATASE (BEAKER) (test zihp=426) 115 U/L 40-150 AST (SGOT) (BEAKER) (test hwet=684) 34 U/L 5-34 ALT (SGPT) (BEAKER) (test itxa=505) 151 U/L 6-55 BASIC METABOLIC [id number] 06:03:00 Test Item Value Reference Range Comments SODIUM (BEAKER) (test 139 meq/L 136-145 qsec=726) POTASSIUM (BEAKER) (test 3.5 meq/L 3.5-5.1 xisa=521) CHLORIDE (BEAKER) (test 107 meq/L 98-107 jjas=445) CO2 (BEAKER) (test 17 meq/L 22-29 pnno=506) BLOOD UREA NITROGEN 5 mg/dL 7-21 (BEAKER) (test urfi=686) CREATININE (BEAKER) (test 0.65 mg/dL 0.57-1.25 zvel=147) GLUCOSE RANDOM (BEAKER) 72 mg/dL 70-105 (test nhit=457) CALCIUM (BEAKER) (test 9.1 mg/dL 8.4-10.2 ownb=043) EGFR (BEAKER) (test 119 mL/min/1.73 sq m ESTIMATED GFR IS NOT ljwy=8550) ACCURATE CREATININE CLEARANCE IN PREDICTING GLOMERULAR FILTRATION RATE. ESTIMATED GFR IS NOT APPLICABLE FOR DIALYSIS PATIENTS. CBC W/PLT COUNT & AUTO [id number] 08:15:00 Test Item Value Reference Range Comments WHITE BLOOD CELL COUNT (BEAKER) (test krhu=007) 9.0 K/ L 4.0-10.0 RED BLOOD CELL COUNT (BEAKER) (test tbsh=737) 4.58 M/ L 4.00-5.00 HEMOGLOBIN (BEAKER) (test vmbc=005) 14.1 GM/DL 12.0-15.0 HEMATOCRIT (BEAKER) (test jvze=416) 42.1 % 36.0-45.0 MEAN CORPUSCULAR VOLUME (BEAKER) (test ibab=974) 92.0 fL 82.0-99.0 MEAN CORPUSCULAR HEMOGLOBIN (BEAKER) (test 30.8 pg 27.0-33.0 wecz=480) MEAN CORPUSCULAR HEMOGLOBIN CONC (BEAKER) (test 33.5 GM/DL 32.0-36.0 rlnq=663) RED CELL DISTRIBUTION WIDTH (BEAKER) (test 11.3 % 10.3-14.2 dzmd=074) PLATELET COUNT (BEAKER) (test tnkw=653) 181 K/CU MM 150-430 MEAN PLATELET VOLUME (BEAKER) (test jfsw=581) 7.8 fL 6.5-10.5 NUCLEATED RED BLOOD CELLS (BEAKER) (test 0 /100 WBC 0-0 ennq=793) NEUTROPHILS RELATIVE PERCENT (BEAKER) (test 69 % omqk=996) LYMPHOCYTES RELATIVE PERCENT (BEAKER) (test 21 % aojx=558) MONOCYTES RELATIVE PERCENT (BEAKER) (test 7 % narg=996) EOSINOPHILS RELATIVE PERCENT (BEAKER) (test 3 % bheu=784) BASOPHILS RELATIVE PERCENT (BEAKER) (test 1 % kgcg=691) NEUTROPHILS ABSOLUTE COUNT (BEAKER) (test 6.24 K/ L 1.80-8.00 cakb=744) LYMPHOCYTES ABSOLUTE COUNT (BEAKER) (test 1.85 K/ L 1.48-4.50 xhlk=619) MONOCYTES ABSOLUTE COUNT (BEAKER) (test 0.67 K/ L 0.00-1.30 iahy=604) EOSINOPHILS ABSOLUTE COUNT (BEAKER) (test 0.23 K/ L 0.00-0.50 zraq=859) BASOPHILS ABSOLUTE COUNT (BEAKER) (test 0.05 K/ L 0.00-0.20 cjld=982) 0.00HEPATIC FUNCTION [id number] 06:43:00 Test Item Value Reference Range Comments TOTAL PROTEIN (BEAKER) (test lqmt=748) 7.0 gm/dL 6.0-8.3 ALBUMIN (BEAKER) (test mklk=3974) 4.1 g/dL 3.5-5.0 BILIRUBIN TOTAL (BEAKER) (test xyie=157) 1.2 mg/dL 0.2-1.2 BILIRUBIN DIRECT (BEAKER) (test tpso=319) 0.5 mg/dL 0.1-0.5 ALKALINE PHOSPHATASE (BEAKER) (test zdti=844) 119 U/L 40-150 AST (SGOT) (BEAKER) (test mers=806) 50 U/L 5-34 ALT (SGPT) (BEAKER) (test nwdg=047) 189 U/L 6-55 BASIC METABOLIC [id number] 06:43:00 Test Item Value Reference Range Comments SODIUM (BEAKER) (test 137 meq/L 136-145 dbze=527) POTASSIUM (BEAKER) (test 4.1 meq/L 3.5-5.1 maky=309) CHLORIDE (BEAKER) (test 109 meq/L 98-107 grpi=293) CO2 (BEAKER) (test 14 meq/L 22-29 tiyv=583) BLOOD UREA NITROGEN 5 mg/dL 7-21 (BEAKER) (test ttth=940) CREATININE (BEAKER) (test 0.63 mg/dL 0.57-1.25 wwtx=201) GLUCOSE RANDOM (BEAKER) 64 mg/dL 70-105 (test hqml=358) CALCIUM (BEAKER) (test 8.8 mg/dL 8.4-10.2 qqtw=554) EGFR (BEAKER) (test 123 mL/min/1.73 sq m ESTIMATED GFR IS NOT hjbf=7516) ACCURATE CREATININE CLEARANCE IN PREDICTING GLOMERULAR FILTRATION RATE. ESTIMATED GFR IS NOT APPLICABLE FOR DIALYSIS PATIENTS. SCREEN, [id number] 10:31:00 Test Item Value Reference Range Comments TEST URINE (BEAKER) (test eajm=774) Negative CBC W/PLT COUNT & AUTO [id number] 06:59:00 Test Item Value Reference Range Comments WHITE BLOOD CELL COUNT (BEAKER) (test dtyy=494) 7.0 K/ L 4.0-10.0 RED BLOOD CELL COUNT (BEAKER) (test ehph=436) 4.35 M/ L 4.00-5.00 HEMOGLOBIN (BEAKER) (test kqat=557) 13.4 GM/DL 12.0-15.0 HEMATOCRIT (BEAKER) (test tdrw=537) 40.4 % 36.0-45.0 MEAN CORPUSCULAR VOLUME (BEAKER) (test kpur=256) 92.8 fL 82.0-99.0 MEAN CORPUSCULAR HEMOGLOBIN (BEAKER) (test 30.9 pg 27.0-33.0 wngn=305) MEAN CORPUSCULAR HEMOGLOBIN CONC (BEAKER) (test 33.3 GM/DL 32.0-36.0 qloo=748) RED CELL DISTRIBUTION WIDTH (BEAKER) (test 11.4 % 10.3-14.2 pdvw=430) PLATELET COUNT (BEAKER) (test howu=857) 160 K/CU MM 150-430 MEAN PLATELET VOLUME (BEAKER) (test lztp=419) 8.0 fL 6.5-10.5 NUCLEATED RED BLOOD CELLS (BEAKER) (test 0 /100 WBC 0-0 gayk=382) NEUTROPHILS RELATIVE PERCENT (BEAKER) (test 53 % xjiy=937) LYMPHOCYTES RELATIVE PERCENT (BEAKER) (test 36 % ivoy=709) MONOCYTES RELATIVE PERCENT (BEAKER) (test 7 % slav=336) EOSINOPHILS RELATIVE PERCENT (BEAKER) (test 4 % bpws=527) BASOPHILS RELATIVE PERCENT (BEAKER) (test 1 % bcio=481) NEUTROPHILS ABSOLUTE COUNT (BEAKER) (test 3.69 K/ L 1.80-8.00 lpqd=016) LYMPHOCYTES ABSOLUTE COUNT (BEAKER) (test 2.51 K/ L 1.48-4.50 xfyf=233) MONOCYTES ABSOLUTE COUNT (BEAKER) (test 0.47 K/ L 0.00-1.30 knlv=691) EOSINOPHILS ABSOLUTE COUNT (BEAKER) (test 0.26 K/ L 0.00-0.50 znkg=315) BASOPHILS ABSOLUTE COUNT (BEAKER) (test 0.05 K/ L 0.00-0.20 eiro=484) 0.00HEPATIC FUNCTION [id number] 06:29:00 Test Item Value Reference Range Comments TOTAL PROTEIN (BEAKER) (test wapq=183) 6.6 gm/dL 6.0-8.3 ALBUMIN (BEAKER) (test muvf=5013) 4.0 g/dL 3.5-5.0 BILIRUBIN TOTAL (BEAKER) (test plcv=266) 1.0 mg/dL 0.2-1.2 BILIRUBIN DIRECT (BEAKER) (test sehc=313) 0.5 mg/dL 0.1-0.5 ALKALINE PHOSPHATASE (BEAKER) (test uuzt=041) 101 U/L 40-150 AST (SGOT) (BEAKER) (test wlrx=373) 51 U/L 5-34 ALT (SGPT) (BEAKER) (test aplh=852) 210 U/L 6-55 BASIC METABOLIC [id number] 06:29:00 Test Item Value Reference Range Comments SODIUM (BEAKER) (test 139 meq/L 136-145 ifmj=839) POTASSIUM (BEAKER) (test 3.7 meq/L 3.5-5.1 ndlf=954) CHLORIDE (BEAKER) (test 107 meq/L 98-107 ritw=446) CO2 (BEAKER) (test 21 meq/L 22-29 hjtq=077) BLOOD UREA NITROGEN 4 mg/dL 7-21 (BEAKER) (test hklo=851) CREATININE (BEAKER) (test 0.62 mg/dL 0.57-1.25 ljfu=292) GLUCOSE RANDOM (BEAKER) 64 mg/dL 70-105 (test vvdv=616) CALCIUM (BEAKER) (test 8.7 mg/dL 8.4-10.2 blfr=317) EGFR (BEAKER) (test 125 mL/min/1.73 sq m ESTIMATED GFR IS NOT afsk=6695) ACCURATE CREATININE CLEARANCE IN PREDICTING GLOMERULAR FILTRATION RATE. ESTIMATED GFR IS NOT APPLICABLE FOR DIALYSIS PATIENTS. HEPATIC FUNCTION [id number] 05:02:00 Test Item Value Reference Range Comments TOTAL PROTEIN (BEAKER) (test pnqn=850) 6.0 gm/dL 6.0-8.3 ALBUMIN (BEAKER) (test uxsr=0004) 3.5 g/dL 3.5-5.0 BILIRUBIN TOTAL (BEAKER) (test opux=807) 0.9 mg/dL 0.2-1.2 BILIRUBIN DIRECT (BEAKER) (test qkuv=750) 0.4 mg/dL 0.1-0.5 ALKALINE PHOSPHATASE (BEAKER) (test ltig=421) 100 U/L 40-150 AST (SGOT) (BEAKER) (test xmfu=514) 73 U/L 5-34 ALT (SGPT) (BEAKER) (test igzu=607) 250 U/L 6-55 BASIC METABOLIC [id number] 05:02:00 Test Item Value Reference Range Comments SODIUM (BEAKER) (test 140 meq/L 136-145 ocjh=040) POTASSIUM (BEAKER) (test 3.8 meq/L 3.5-5.1 skov=131) CHLORIDE (BEAKER) (test 110 meq/L 98-107 hetj=922) CO2 (BEAKER) (test 22 meq/L 22-29 pszh=921) BLOOD UREA NITROGEN 4 mg/dL 7-21 (BEAKER) (test kpjn=795) CREATININE (BEAKER) (test 0.62 mg/dL 0.57-1.25 yzke=351) GLUCOSE RANDOM (BEAKER) 75 mg/dL 70-105 (test ogcg=540) CALCIUM (BEAKER) (test 8.4 mg/dL 8.4-10.2 hzkq=780) EGFR (BEAKER) (test 125 mL/min/1.73 sq m ESTIMATED GFR IS NOT tzza=7434) ACCURATE CREATININE CLEARANCE IN PREDICTING GLOMERULAR FILTRATION RATE. ESTIMATED GFR IS NOT APPLICABLE FOR DIALYSIS PATIENTS. CBC W/PLT COUNT & AUTO [id number] 04:37:00 Test Item Value Reference Range Comments WHITE BLOOD CELL COUNT (BEAKER) (test ptwp=733) 7.1 K/ L 4.0-10.0 RED BLOOD CELL COUNT (BEAKER) (test oqmz=525) 3.94 M/ L 4.00-5.00 HEMOGLOBIN (BEAKER) (test cknh=062) 12.1 GM/DL 12.0-15.0 HEMATOCRIT (BEAKER) (test jzkg=397) 36.2 % 36.0-45.0 MEAN CORPUSCULAR VOLUME (BEAKER) (test naje=237) 91.8 fL 82.0-99.0 MEAN CORPUSCULAR HEMOGLOBIN (BEAKER) (test 30.8 pg 27.0-33.0 jvcv=324) MEAN CORPUSCULAR HEMOGLOBIN CONC (BEAKER) (test 33.5 GM/DL 32.0-36.0 gcjo=813) RED CELL DISTRIBUTION WIDTH (BEAKER) (test 12.1 % 10.3-14.2 xqym=520) PLATELET COUNT (BEAKER) (test rnme=743) 157 K/CU MM 150-430 MEAN PLATELET VOLUME (BEAKER) (test ufox=978) 7.8 fL 6.5-10.5 NUCLEATED RED BLOOD CELLS (BEAKER) (test 0 /100 WBC 0-0 ayzi=565) NEUTROPHILS RELATIVE PERCENT (BEAKER) (test 53 % kuhx=807) LYMPHOCYTES RELATIVE PERCENT (BEAKER) (test 36 % ajam=936) MONOCYTES RELATIVE PERCENT (BEAKER) (test 6 % azag=270) EOSINOPHILS RELATIVE PERCENT (BEAKER) (test 4 % qrqw=980) BASOPHILS RELATIVE PERCENT (BEAKER) (test 1 % zqht=140) NEUTROPHILS ABSOLUTE COUNT (BEAKER) (test 3.75 K/ L 1.80-8.00 yahe=136) LYMPHOCYTES ABSOLUTE COUNT (BEAKER) (test 2.54 K/ L 1.48-4.50 vpyq=976) MONOCYTES ABSOLUTE COUNT (BEAKER) (test 0.44 K/ L 0.00-1.30 alet=597) EOSINOPHILS ABSOLUTE COUNT (BEAKER) (test 0.27 K/ L 0.00-0.50 rrey=297) BASOPHILS ABSOLUTE COUNT (BEAKER) (test 0.05 K/ L 0.00-0.20 tsyt=833) [id number] 07:40:00 Test Item Value Reference Range Comments LIPASE (BEAKER) (test ofls=300) 8 U/L 8-78 [id number] 07:40:00 Test Item Value Reference Range Comments AMYLASE (BEAKER) (test evfm=442) 44 U/L 25-125 BASIC METABOLIC [id number] 07:40:00 Test Item Value Reference Range Comments SODIUM (BEAKER) (test 140 meq/L 136-145 cgpx=272) POTASSIUM (BEAKER) (test 3.8 meq/L 3.5-5.1 cnkj=485) CHLORIDE (BEAKER) (test 109 meq/L 98-107 zmfg=861) CO2 (BEAKER) (test 22 meq/L 22-29 uqwc=717) BLOOD UREA NITROGEN 4 mg/dL 7-21 (BEAKER) (test irrh=734) CREATININE (BEAKER) (test 0.63 mg/dL 0.57-1.25 ffru=269) GLUCOSE RANDOM (BEAKER) 94 mg/dL 70-105 (test pimq=843) CALCIUM (BEAKER) (test 8.4 mg/dL 8.4-10.2 qrzk=641) EGFR (BEAKER) (test 123 mL/min/1.73 sq m ESTIMATED GFR IS NOT bfhd=1959) ACCURATE CREATININE CLEARANCE IN PREDICTING GLOMERULAR FILTRATION RATE. ESTIMATED GFR IS NOT APPLICABLE FOR DIALYSIS PATIENTS. HEPATIC FUNCTION [id number] 07:40:00 Test Item Value Reference Range Comments TOTAL PROTEIN (BEAKER) (test fliu=897) 6.2 gm/dL 6.0-8.3 ALBUMIN (BEAKER) (test giev=1913) 3.7 g/dL 3.5-5.0 BILIRUBIN TOTAL (BEAKER) (test kfgk=356) 0.7 mg/dL 0.2-1.2 BILIRUBIN DIRECT (BEAKER) (test yufl=414) 0.3 mg/dL 0.1-0.5 ALKALINE PHOSPHATASE (BEAKER) (test yaei=220) 106 U/L 40-150 AST (SGOT) (BEAKER) (test vfov=467) 81 U/L 5-34 ALT (SGPT) (BEAKER) (test mcck=702) 309 U/L 6-55 CBC W/PLT COUNT & AUTO [id number] 06:56:00 Test Item Value Reference Range Comments WHITE BLOOD CELL COUNT (BEAKER) (test oxwj=674) 7.3 K/ L 4.0-10.0 RED BLOOD CELL COUNT (BEAKER) (test srfn=729) 3.89 M/ L 4.00-5.00 HEMOGLOBIN (BEAKER) (test vyyz=814) 12.3 GM/DL 12.0-15.0 HEMATOCRIT (BEAKER) (test ykxh=163) 36.0 % 36.0-45.0 MEAN CORPUSCULAR VOLUME (BEAKER) (test iyuy=755) 92.4 fL 82.0-99.0 MEAN CORPUSCULAR HEMOGLOBIN (BEAKER) (test 31.5 pg 27.0-33.0 wwku=356) MEAN CORPUSCULAR HEMOGLOBIN CONC (BEAKER) (test 34.1 GM/DL 32.0-36.0 drjd=793) RED CELL DISTRIBUTION WIDTH (BEAKER) (test 12.5 % 10.3-14.2 cocs=519) PLATELET COUNT (BEAKER) (test virs=752) 163 K/CU MM 150-430 MEAN PLATELET VOLUME (BEAKER) (test ceuf=249) 7.9 fL 6.5-10.5 NUCLEATED RED BLOOD CELLS (BEAKER) (test 0 /100 WBC 0-0 aqzd=621) NEUTROPHILS RELATIVE PERCENT (BEAKER) (test 56 % hcun=662) LYMPHOCYTES RELATIVE PERCENT (BEAKER) (test 33 % cpaf=276) MONOCYTES RELATIVE PERCENT (BEAKER) (test 8 % jgyc=794) EOSINOPHILS RELATIVE PERCENT (BEAKER) (test 3 % gytu=252) BASOPHILS RELATIVE PERCENT (BEAKER) (test 1 % pcdt=933) NEUTROPHILS ABSOLUTE COUNT (BEAKER) (test 4.11 K/ L 1.80-8.00 cbmq=209) LYMPHOCYTES ABSOLUTE COUNT (BEAKER) (test 2.39 K/ L 1.48-4.50 nhvz=605) MONOCYTES ABSOLUTE COUNT (BEAKER) (test 0.57 K/ L 0.00-1.30 tbhb=687) EOSINOPHILS ABSOLUTE COUNT (BEAKER) (test 0.19 K/ L 0.00-0.50 ipfz=993) BASOPHILS ABSOLUTE COUNT (BEAKER) (test 0.05 K/ L 0.00-0.20 klsg=721) 0.00PT/[id number] 06:46:00 Test Item Value Reference Range Comments PROTIME (BEAKER) (test jqzc=207) 15.3 seconds 11.7-14.7 INR (BEAKER) (test ahib=955) 1.2 <=5.9 PARTIAL THROMBOPLASTIN TIME (BEAKER) (test 32.9 seconds 22.5-36.0 blzi=389) RECOMMENDED COUMADIN/WARFARIN INR THERAPY RANGESSTANDARD DOSE: 2.0 - 3.0 Includes: PROPHYLAXIS forvenous thrombosis, systemic embolization; TREATMENT for venous thrombosis and/or pulmonary embolus.HIGH RISK: Target INR is 2.5-3.5 for patients with mechanical heart valves.
[2019-06-07] MEDS ORDERED: ONDANSETRON 4 MG/2 ML VIAL ONE ×2 (09:05→13:43)
[2019-06-07] MEDS ORDERED: FAMOTIDINE 20 MG/2 ML VIAL IV ONE (09:05)
[2019-06-07] MEDS ORDERED: NA CHLORIDE 0.9% 1,000 ML ONE (09:05)
[2019-06-07 09:43] LABS: Absolute Lymphocytes (CBC) 2.2 K/uL (0.7-4.9); Basophils % 0.5 % (0-1.3); Hematocrit 45.5 % (36.0-45.0); Lymphocytes % 20.1 % (15.3-44.8); MPV 8.4 fL (7.6-11.3)
[2019-06-07 09:58] LABS: ALT/SGPT 25 U/L (12-78); AST/SGOT 23 U/L (15-37); Albumin 4.1 g/dL (3.4-5.0); Alkaline Phosphatase 56 U/L (45-117); BUN Blood Urea Nitrogen 7 mg/dL (7-18); Bicarbonate 22 mmol/L (21-32); Bilirubin Direct 0.2 mg/dL (0-0.2); Bilirubin Total 0.8 mg/dL (0.2-1.0); Glucose Level 95 mg/dL (74-106); Lipase 54 U/L (73-393); Potassium 3.9 mmol/L (3.5-5.1); Protein, Total 8.1 g/dL (6.4-8.2); Sodium Level 139 mmol/L (136-145)
[2019-06-07 10:43] LABS: Urine Blood NEGATIVE (NEG); Urine Glucose NEGATIVE (NEG); Urine Protein NEGATIVE (NEG)
--- NOTE | 2019-06-07 11:39 | RAD REPORT ---
EXAM DESCRIPTION: CT - Abdomen Pelvis W Contrast - 06/07/2019 11:10 am CLINICAL HISTORY: Abdominal pain COMPARISON: 2016 TECHNIQUE: Computed axial tomography of the abdomen pelvis was obtained. 100 cc Isovue-300 was admin istered intravenously. Oral contrast was not requested which limits evaluation of bowel. All CT scans are performed using dose optimization technique as appropriate and may include automated exposure control or mA/KV adjustment according to patient size. FINDINGS: Cholecystectomy A 1 centimeter enhancing lesion within the lateral segment of left lobe of the liver. This is not judith alex seen on the prior exam. Spleen, pancreas, adrenal and kidneys appear unremarkable. There is no evidence of diverticulitis. An abnormal appendix is not visualized. Trace amount of free fluid probably physiologic IMPRESSION: 1 centimeter enhancing lesion within the liver. Ultrasound is recommended for further ev aluation
--- NOTE | 2019-06-07 12:37 | EDPHYS ---
Physician Documentation [facility] Name: Marcy Flores Age: 23 yrs Sex: Female : 1995 Arrival Date: 06/07/2019 Time: 08:15 Bed 19 Private MD: ED Physician Micah White HPI: 06/07 13:02 This 23 yrs old Female presents to ER via Ambulatory with complaints of kdr Abdominal Pain, Decreased Appetite, Vomiting. 13:02 The patient presents to the emergency department with nausea, that is mild, vomiting, kdr that is intermittent, abdominal pain, of the right lower quadrant and left lower quadrant. Onset: The symptoms/episode began/occurred gradually, 2 day(s) ago. Possible causes: unknown. The symptoms are aggravated by food , The symptoms are alleviated by nothing. Associated signs and symptoms: Pertinent positives: abdominal pain, nausea, vomiting, Pertinent negatives:. Severity of symptoms: At their worst the symptoms were mild in the emergency department the symptoms are unchanged. The patient has not experienced similar symptoms in the past. The patient has not recently seen a physician. 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 - Coronavirus screen:: The patient has NOT traveled to [place] in the past 14 days. The patient has NOT had contact with known/suspected case of Coronavirus? Proceed with normal triage procedures. - Social history:: Smoking status: Patient denies any tobacco usage or history of. - Ebola Screening: : No symptoms or risks identified at this time. ROS: 13:02 Constitutional: Negative for fever, chills, and weight loss, Eyes: Negative for injury, kdr pain, redness, and discharge, Neck: Negative for injury, pain, and swelling, Cardiovascular: Negative for chest pain, palpitations, and edema, Respiratory: Negative for shortness of breath, cough, wheezing, and pleuritic chest pain, Back: Negative for injury and pain, : Negative for injury, bleeding, discharge, and swelling, MS/Extremity: Negative for injury and deformity, Skin: Negative for injury, rash, and discoloration, Neuro: Negative for headache, weakness, numbness, tingling, and seizure activity. Psych: Negative for depression, anxiety, suicide ideation, homicidal ideation, and hallucinations, Allergy/Immunology: Negative for hives, rash, and allergies, Endocrine: Negative for neck swelling, polydipsia, polyuria, polyphagia, and marked weight changes, Hematologic/Lymphatic: Negative for swollen nodes, abnormal bleeding, and unusual bruising. 13:02 Abdomen/GI: Positive for abdominal pain, nausea and vomiting, Negative for diarrhea, constipation, abdominal distension, anorexia, dysphagia, hematemesis, black/tarry stool, rectal pain, rectal bleeding, bowel incontinence. Exam: 13:02 Constitutional: This is a well developed, well nourished patient who is awake, alert, kdr and in no acute distress. Head/Face: Normocephalic, atraumatic. Eyes: Pupils equal round and reactive to light, extra-ocular motions intact. Lids and lashes normal. Conjunctiva and sclera are non-icteric and not injected. Cornea within normal limits. Periorbital areas with no swelling, redness, or edema. Neck: Trachea midline, no thyromegaly or masses palpated, and no cervical lymphadenopathy. Supple, full range of motion without nuchal rigidity, or vertebral point tenderness. No Meningismus. Chest/axilla: Normal chest wall appearance and motion. Nontender with no deformity. No lesions are appreciated. Cardiovascular: Regular rate and rhythm with a normal S1 and S2. No gallops, murmurs, or rubs. Normal PMI, no JVD. No pulse deficits. Respiratory: Lungs have equal breath sounds bilaterally, clear to auscultation and percussion. No rales, rhonchi or wheezes noted. No increased work of breathing, no retractions or nasal flaring. Back: No spinal tenderness. No costovertebral tenderness. Full range of motion. Skin: Warm, dry with normal turgor. Normal color with no rashes, no lesions, and no evidence of cellulitis. MS/ Extremity: Pulses equal, no cyanosis. Neurovascular intact. Full, normal range of motion. Neuro: Awake and alert, GCS 15, oriented to person, place, time, and situation. Cranial nerves II-XII grossly intact. Motor strength 5/5 in all extremities. Sensory grossly intact. Cerebellar exam normal. Normal gait. Psych: Awake, alert, with orientation to person, place and time. Behavior, mood, and affect are within normal limits. 13:02 Abdomen/GI: Inspection: abdomen appears normal, Bowel sounds: active, all quadrants, Palpation: soft, mild abdominal tenderness, in the right lower quadrant and left lower quadrant, mass, is not appreciated, rebound tenderness, is not appreciated, voluntary guarding, is not appreciated, involuntary guarding, is not appreciated. Vital Signs: 08:25 BP 140 / 62; Pulse 90; Resp 16; Temp 98.3; Pulse Ox 97% ; Weight 74.84 kg; Height 5 ft. hb 2 in. (157.48 cm); Pain 8/10; 09:53 BP 121 / 60; Pulse 62; Resp 16; Temp 99.4; Pulse Ox 99% on R/A; Pain 6/10; em1 10:39 BP 119 / 68; Pulse 96; Resp 17; Pulse Ox 100% on R/A; tw2 11:33 BP 109 / 63; Pulse 64; Resp 17; Pulse Ox 100% on R/A; tw2 12:30 BP 118 / 71; Pulse 66; Resp 17; Pulse Ox 99% on R/A; tw2 14:57 BP 107 / 62; Pulse 75; Resp 17; Pulse Ox 99% on R/A; tw2 08:25 Body Mass Index 30.18 (74.84 kg, 157.48 cm) hb MDM: 12:36 Patient medically screened. kdr 13:02 Data reviewed: vital signs, nurses notes, lab test result(s), radiologic studies. kdr Counseling: I had a detailed discussion with the patient and/or guardian regarding: the historical points, exam findings, and any diagnostic results supporting the discharge/admit diagnosis, lab results, radiology results, the need for outpatient follow up. 06/07 08:44 Order name: Basic Metabolic Panel; Complete Time: 12:31 kdr 06/07 08:44 Order name: CBC with Diff; Complete Time: 12:31 kdr 06/07 08:44 Order name: Creatinine for Radiology; Complete Time: 12:31 kdr 06/07 08:44 Order name: Hepatic Function; Complete Time: 12:31 [facility] 06/07 08:44 Order name: Lipase; Complete Time: 12:31 [facility] 06/07 10:33 Order name: Urine Dipstick--Ancillary (enter results) [facility] 06/07 08:44 Order name: IV Saline Lock; Complete Time: 09:48 [facility] 06/07 08:44 Order name: Labs collected and sent; Complete Time: 09:49 [facility] 06/07 08:56 Order name: CT Abd/Pelvis - IV Contrast Only; Complete Time: 12:31 [facility] 06/07 10:33 Order name: Urine --Ancillary (enter results) [facility] 06/07 08:57 Order name: Urine Test (obtain specimen); Complete Time: 10:31 [facility] Administered Medications: 09:28 Drug: Zofran 4 mg Route: IVP; Site: right antecubital; tw2 12:56 Follow up: Response: No adverse reaction tw2 09:28 Drug: NS 0.9% 1000 ml Route: IV; Rate: 1 bolus; Site: right antecubital; tw2 12:56 Follow up: Response: No adverse reaction; IV Status: Completed infusion; IV Intake: tw2 1000ml 09:30 Drug: Pepcid 20 mg Route: IVP; Site: right antecubital; tw2 10:30 Follow up: Response: No adverse reaction tw2 13:59 Drug: Zofran 4 mg Route: IVP; Site: right antecubital; tw2 14:59 Follow up: Response: No adverse reaction; Nausea is decreased tw2 Disposition: 06/07/19 12:36 Discharged to Home. Impression: Abdominal and pelvic pain, Dehydration. - Condition is Stable. - Discharge Instructions: Abdominal Pain, Adult, [id number]. - Prescriptions for Pepcid 20 mg Oral Tablet - take 1 tablet by ORAL route every 12 hours for 5 days; 10 tablet. Zofran 4 mg Oral Tablet - take 1 tablet by ORAL route every 4-6 hours As needed; 12 tablet. - Medication Reconciliation Form, Thank You Letter, Antibiotic Education, Prescription Opioid Use, School release form, Work release form form. - Follow up: Private Physician; When: 2 - 3 days; Reason: If symptoms return, Further diagnostic work-up, Recheck today's complaints, Continuance of care, Re-evaluation by your physician. - Problem is new. - Symptoms have improved. - Notes: You will need to follow-up with your doctor for a possible ultrasound of your liver to further evaluate the lesion seen on CT scan. This is likely an insignificant finding but should be confirmed with an ultrasound. Signatures: Dispatcher [employer] EDMicah Lam MD MD [facility] Paloma Orozco RN RN Sissy Mathews RN RN tw2 Corrections: (The following items were deleted from the chart) 15:00 12:36 06/07/2019 12:36 Discharged to Home. Impression: Abdominal and pelvic pain; tw2 Dehydration. Condition is Stable. Forms are School release form, Work release form, Medication Reconciliation Form, Thank You Letter, Antibiotic Education, Prescription Opioid Use. Follow up: Private Physician; When: 2 - 3 days; Reason: If symptoms return, Further diagnostic work-up, Recheck today's complaints, Continuance of care, Re-evaluation by your physician. Problem is new. Symptoms have improved. kdr
--- NOTE | 2019-06-07 12:37 | ER ---
Nurse's Notes [facility] Name: Marcy Flores Age: 23 yrs Sex: Female : 1995 Arrival Date: 06/07/2019 Time: 08:15 Bed 19 Private MD: Diagnosis: Abdominal and pelvic pain;Dehydration Presentation: 06/07 08:21 Presenting complaint: Lower abdominal pain and N/V x 2 days. Not tolerating fluids. hb Transition of care: patient was not received from another setting of care. Onset of symptoms was June 06, 2019. Risk Assessment: Do you want to hurt yourself or someone else? Patient reports no desire to harm self or others. Initial Sepsis Screen: Does the patient meet any 2 criteria? No. Patient's initial sepsis screen is negative. Does the patient have a suspected source of infection? No. Patient's initial sepsis screen is negative. Care prior to arrival: None. 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 - Coronavirus screen:: The patient has NOT traveled to [place] in the past 14 days. The patient has NOT had contact with known/suspected case of Coronavirus? Proceed with normal triage procedures. - Social history:: Smoking status: Patient denies any tobacco usage or history of. - Ebola Screening: : No symptoms or risks identified at this time. Screenin:36 Abuse screen: Denies threats or abuse. Nutritional screening: No deficits noted. tw2 Tuberculosis screening: No symptoms or risk factors identified. Fall Risk None identified. Assessment: 08:20 General: Appears in no apparent distress. slender, well groomed, Behavior is calm, tw2 cooperative, appropriate for age. Pain: Complains of pain in abdomen. Neuro: Level of Consciousness is awake, alert, obeys commands, Oriented to person, place, time, situation. Cardiovascular: Heart tones S1 S2 Patient's skin is warm and dry. Respiratory: Airway is patent Respiratory effort is even, unlabored, Respiratory pattern is regular, symmetrical, Breath sounds are clear bilaterally. GI: Abdomen is flat, Bowel sounds present X 4 quads. Abd is soft X 4 quads Reports indigestion, nausea. : No signs and/or symptoms were reported regarding the genitourinary system. EENT: No signs and/or symptoms were reported regarding the EENT system. Derm: No signs and/or symptoms reported regarding the dermatologic system. Musculoskeletal: Range of motion: intact in all extremities. 10:40 Reassessment: Patient appears in no apparent distress at this time. No changes from tw2 previously documented assessment. Patient and/or family updated on plan of care and expected duration. Pain level reassessed. Patient is alert, oriented x 3, equal unlabored respirations, skin warm/dry/pink. 11:34 Reassessment: Patient appears in no apparent distress at this time. No changes from tw2 previously documented assessment. Patient and/or family updated on plan of care and expected duration. Pain level reassessed. Patient is alert, oriented x 3, equal unlabored respirations, skin warm/dry/pink. Patient states feeling better. 12:55 Reassessment: Patient appears in no apparent distress at this time. No changes from tw2 previously documented assessment. Patient and/or family updated on plan of care and expected duration. Pain level reassessed. Patient is alert, oriented x 3, equal unlabored respirations, skin warm/dry/pink. 13:50 Reassessment: pt did NOT tolerate PO fluids at this time, pt vomited up what she drank, tw2 provider notified and medicated as ordered, will monitor and evaluate condition again prior to discharge. 14:48 Reassessment: pt given PO fluids at this time, will monitor for condition. tw2 14:58 Reassessment: Patient appears in no apparent distress at this time. Patient and/or tw2 family updated on plan of care and expected duration. Pain level reassessed. Patient is alert, oriented x 3, equal unlabored respirations, skin warm/dry/pink. Patient states feeling better. Vital Signs: 08:25 BP 140 / 62; Pulse 90; Resp 16; Temp 98.3; Pulse Ox 97% ; Weight 74.84 kg; Height 5 ft. hb 2 in. (157.48 cm); Pain 8/10; 09:53 BP 121 / 60; Pulse 62; Resp 16; Temp 99.4; Pulse Ox 99% on R/A; Pain 6/10; em1 10:39 BP 119 / 68; Pulse 96; Resp 17; Pulse Ox 100% on R/A; tw2 11:33 BP 109 / 63; Pulse 64; Resp 17; Pulse Ox 100% on R/A; tw2 12:30 BP 118 / 71; Pulse 66; Resp 17; Pulse Ox 99% on R/A; tw2 14:57 BP 107 / 62; Pulse 75; Resp 17; Pulse Ox 99% on R/A; tw2 08:25 Body Mass Index 30.18 (74.84 kg, 157.48 cm) hb ED Course: 08:15 Patient arrived in ED. as 08:18 Bed in low position. Call light in reach. tw2 08:22 Triage completed. hb 08:22 Micah White MD is Attending Physician. kdr 08:25 Arm band placed on. hb 08:45 Sissy Mathews RN is Primary Nurse. tw2 11:13 CT Abd/Pelvis - IV Contrast Only In Process Unspecified. EDMS 12:51 Awaiting: provider to go over results with pt prior to discharge. tw2 14:16 Awaiting: re-evaluation after IV zofran at this time PRIOR to discharge. tw2 14:58 No provider procedures requiring assistance completed. IV discontinued, intact, tw2 bleeding controlled, No redness/swelling at site. Pressure dressing applied. Administered Medications: 09:28 Drug: Zofran 4 mg Route: IVP; Site: right antecubital; tw2 12:56 Follow up: Response: No adverse reaction tw2 09:28 Drug: NS 0.9% 1000 ml Route: IV; Rate: 1 bolus; Site: right antecubital; tw2 12:56 Follow up: Response: No adverse reaction; IV Status: Completed infusion; IV Intake: tw2 1000ml 09:30 Drug: Pepcid 20 mg Route: IVP; Site: right antecubital; tw2 10:30 Follow up: Response: No adverse reaction tw2 13:59 Drug: Zofran 4 mg Route: IVP; Site: right antecubital; tw2 14:59 Follow up: Response: No adverse reaction; Nausea is decreased tw2 Intake: 12:56 IV: 1000ml; Total: 1000ml. tw2 Outcome: 12:36 Discharge ordered by . kdr 14:58 Discharged to home ambulatory. tw2 14:58 Condition: stable 14:58 Discharge instructions given to patient, Instructed on discharge instructions, follow up and referral plans. medication usage, Demonstrated understanding of instructions, follow-up care, medications, Prescriptions given X 2. 15:00 Patient left the ED. tw2 Signatures: Dispatcher [employer] EDMS Micah White MD MD kdr Martinez, Amelia as Martinez, Eric em1 Paloma Orozco, ROSMERY RN Sissy Mathews RN RN tw2 Corrections: (The following items were deleted from the chart) 14:18 13:50 Reassessment: pt did NOT tolerate PO fluids at this time, pt vomited up what she tw2 drank, provider notified and medicated as ordered. tw2
[2019-06-07 16:24] VITALS: TEMP 98.3
[2019-06-07 16:48] VITALS: BP 118/71; O2SAT 99
== END 2019-06-07 15:00 | disposition home or self-care (01) ==
LOC: ER 08:14
DX: E86.0 Dehydration (principal); Z88.8 Allergy status to other drugs, medicaments and biological substances; Z91.018 Allergy to other foods
CPT/HCPCS: 36415; 74177; 80048; 80076; 81003; 81025; 83690; 85025; 96361; 96374; 96375; 99283; J2405; J7030; Q9967

== ENCOUNTER 2020-01-19 07:52 | Emergency (ER) | payer SELFPAY ==
--- NOTE | 2020-01-19 08:38 | ER ---
Nurse's Notes [facility] Name: Marcy Flores Age: 24 yrs Sex: Female : 1995 Arrival Date: 01/19/2020 Time: 07:54 Bed 17 Private MD: Diagnosis: Dysuria Presentation: 01/18 08:10 Chief complaint: Patient states: burning with urination, lower abdominal pain, nausea ah and left lower back pain for a few days. Coronavirus screen: At this time, the client does not indicate any symptoms associated with coronavirus-19. Ebola Screen: No symptoms or risks identified at this time. Initial Sepsis Screen: Does the patient meet any 2 criteria? No. Patient's initial sepsis screen is negative. Does the patient have a suspected source of infection? No. Patient's initial sepsis screen is negative. Risk Assessment: Do you want to hurt yourself or someone else? Patient reports no desire to harm self or others. Onset of symptoms is unknown. 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 It has been more than one year since last vaccine. - Social history:: Smoking status: Patient denies any tobacco usage or history of. - Family history:: not pertinent. Screenin:18 Abuse screen: Denies threats or abuse. Nutritional screening: No deficits noted. Tuberculosis screening: No symptoms or risk factors identified. Fall Risk None identified. Assessment: 08:14 General: Appears in no apparent distress. Pain: Complains of pain in suprapubic area. Neuro: Level of Consciousness is awake, alert, obeys commands, Oriented to person, place, time, situation. Cardiovascular: Capillary refill < 3 seconds Patient's skin is warm and dry. Respiratory: Airway is patent Respiratory effort is even, unlabored, Respiratory pattern is regular, symmetrical. GI: Reports cramping, nausea, Patient currently denies vomiting. : Urine is has been dark Last void was January 19, 2020. Denies burning with urination, cramping flank(s). Derm: Skin is intact, is healthy with good turgor, Skin is dry. 08:47 Reassessment: Discharge instructions given and educated on prescriptions. Pt voiced understanding. Vital Signs: 08:10 BP 120 / 77; Pulse 93; Resp 18; Temp 97.5; Pulse Ox 97% ; Weight 77.11 kg; Height 5 ft. ah 2 in. (157.48 cm); 08:10 Body Mass Index 31.09 (77.11 kg, 157.48 cm) ED Course: 07:54 Patient arrived in ED. [facility] 07:58 Siddhartha Harris MD is Attending Physician. [facility] 07:59 Jina Silveira, RN is Primary Nurse. 08:12 Triage completed. 08:12 Urine Culture Sent. [facility] 08:13 Urine collected: clean catch specimen, clear. [facility] 08:13 Patient has correct armband on for positive identification. Placed in gown. Bed in low mh5 position. Call light in reach. Side rails up X 1. Pulse ox on. NIBP on. 08:38 Kaykay Joshi MD is Referral Physician. [facility] 08:47 No provider procedures requiring assistance completed. Patient did not have IV access during this emergency room visit. Administered Medications: 08:36 Drug: Cipro 500 mg Route: PO; 08:49 Follow up: Response: No adverse reaction 08:36 Drug: Pyridium 200 mg Route: PO; 08:49 Follow up: Response: No adverse reaction Outcome: 08:38 Discharge ordered by . [facility] 08:47 Discharged to home ambulatory. 08:47 Condition: good 08:47 Discharge instructions given to patient, Instructed on discharge instructions, follow up and referral plans. Demonstrated understanding of instructions, follow-up care, medications, Prescriptions given X 2. 08:48 Patient left the ED. Signatures: Siddhartha Harris MD MD cha Martinez, Maria [facility] Galilea Helton [facility] Jina Silveira RN RN
--- NOTE | 2020-01-19 08:39 | EDPHYS ---
Physician Documentation [facility] Name: Marcy Flores Age: 24 yrs Sex: Female : 1995 Arrival Date: 01/19/2020 Time: 07:54 Bed 17 Private MD: JALEN Physician Siddhartha Harris HPI: 01/18 08:31 This 24 yrs old Female presents to ER via Ambulatory with complaints of rafiq Possible UTI. 08:31 The patient presents with urinary symptoms, dysuria, frequency, hesitancy, urgency. rafiq Onset: The symptoms/episode began/occurred 1 day(s) ago. Modifying factors: The symptoms are alleviated by nothing, the symptoms are aggravated by nothing. Associated signs and symptoms: The patient has no apparent associated signs or symptoms. Severity of symptoms: At their worst the symptoms were mild, in the emergency department the symptoms are unchanged. The patient has experienced similar episodes in the past, several times. 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 It has been more than one year since last vaccine. - Social history:: Smoking status: Patient denies any tobacco usage or history of. - Family history:: not pertinent. ROS: 08:31 Constitutional: Negative for fever, chills, and weight loss, Eyes: Negative for injury, rafiq pain, redness, and discharge, ENT: Negative for injury, pain, and discharge, Neck: Negative for injury, pain, and swelling, Cardiovascular: Negative for chest pain, palpitations, and edema, Respiratory: Negative for shortness of breath, cough, wheezing, and pleuritic chest pain, Back: Negative for injury and pain, MS/Extremity: Negative for injury and deformity, Skin: Negative for injury, rash, and discoloration, Neuro: Negative for headache, weakness, numbness, tingling, and seizure, Psych: Negative for depression, anxiety, suicide ideation, homicidal ideation, and hallucinations, Allergy/Immunology: Negative for hives, rash, and allergies, Endocrine: Negative for neck swelling, polydipsia, polyuria, polyphagia, and marked weight changes, Hematologic/Lymphatic: Negative for swollen nodes, abnormal bleeding, and unusual bruising. 08:31 Abdomen/GI: Positive for abdominal pain, of the suprapubic area. 08:31 : Positive for urinary frequency, burning with urination, difficulty urinating, of the suprapubic area. Exam: 08:31 Constitutional: This is a well developed, well nourished patient who is awake, alert, rafiq and in no acute distress. Head/Face: Normocephalic, atraumatic. Eyes: Pupils equal round and reactive to light, extra-ocular motions intact. Lids and lashes normal. Conjunctiva and sclera are non-icteric and not injected. Cornea within normal limits. Periorbital areas with no swelling, redness, or edema. ENT: Nares patent. No nasal discharge, no septal abnormalities noted. Tympanic membranes are normal and external auditory canals are clear. Oropharynx with no redness, swelling, or masses, exudates, or evidence of obstruction, uvula midline. Mucous membranes moist. Neck: Trachea midline, no thyromegaly or masses palpated, and no cervical lymphadenopathy. Supple, full range of motion without nuchal rigidity, or vertebral point tenderness. No Meningismus. Chest/axilla: Normal chest wall appearance and motion. Nontender with no deformity. No lesions are appreciated. Cardiovascular: Regular rate and rhythm with a normal S1 and S2. No gallops, murmurs, or rubs. Normal PMI, no JVD. No pulse deficits. Respiratory: Lungs have equal breath sounds bilaterally, clear to auscultation and percussion. No rales, rhonchi or wheezes noted. No increased work of breathing, no retractions or nasal flaring. Back: No spinal tenderness. No costovertebral tenderness. Full range of motion. Skin: Warm, dry with normal turgor. Normal color with no rashes, no lesions, and no evidence of cellulitis. MS/ Extremity: Pulses equal, no cyanosis. Neurovascular intact. Full, normal range of motion. Neuro: Awake and alert, GCS 15, oriented to person, place, time, and situation. Cranial nerves II-XII grossly intact. Motor strength 5/5 in all extremities. Sensory grossly intact. Cerebellar exam normal. Normal gait. Psych: Awake, alert, with orientation to person, place and time. Behavior, mood, and affect are within normal limits. 08:31 Abdomen/GI: Inspection: abdomen appears normal, Bowel sounds: normal, Palpation: mild abdominal tenderness, in the suprapubic area, Liver: no appreciated palpable abnormalities, Hernia: not appreciated. Vital Signs: 08:10 BP 120 / 77; Pulse 93; Resp 18; Temp 97.5; Pulse Ox 97% ; Weight 77.11 kg; Height 5 ft. ah 2 in. (157.48 cm); 08:10 Body Mass Index 31.09 (77.11 kg, 157.48 cm) MDM: 07:58 Patient medically screened. [facility] 08:34 Differential diagnosis: kidney stone, ovarian cyst, urinary tract infection. Data rafiq reviewed: vital signs, nurses notes, lab test result(s), urinalysis. 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 Counseling: I had a detailed discussion with the patient and/or guardian regarding: the historical points, exam findings, and any diagnostic results supporting the discharge/admit diagnosis, lab results, the need for outpatient follow up, for definitive care, a family practitioner. 01/18 07:59 Order name: Urine Culture [facility] 01/18 08:14 Order name: Urine Dipstick--Ancillary (enter results) 01/18 07:59 Order name: Urine Dipstick-Ancillary (obtain specimen); Complete Time: 08:13 [facility] 01/18 08:14 Order name: Urine --Ancillary (enter results) 01/18 07:59 Order name: Urine Test (obtain specimen); Complete Time: 08:13 [facility] Administered Medications: 08:36 Drug: Cipro 500 mg Route: PO; 08:49 Follow up: Response: No adverse reaction 08:36 Drug: Pyridium 200 mg Route: PO; 08:49 Follow up: Response: No adverse reaction Disposition: 01/19/20 08:38 Discharged to Home. Impression: Dysuria. - Condition is Stable. - Discharge Instructions: Dysuria. - Prescriptions for Cipro 250 mg Oral Tablet - take 1 tablet by ORAL route every 12 hours; 14 tablet. Pyridium 200 mg Oral Tablet - take 1 tablet by ORAL route every 8 hours for 3 days; 9 tablet. - Medication Reconciliation Form, Thank You Letter, Antibiotic Education, Prescription Opioid Use, Work release form form. - Follow up: Private Physician; When: 2 - 3 days; Reason: Recheck today's complaints, Continuance of care, Re-evaluation by your physician. Follow up: Kaykay Joshi MD; When: 2 - 3 days; Reason: Recheck today's complaints, Re-evaluation by your physician. - Problem is new. - Symptoms have improved. Signatures: Dispatcher [employer] EDSiddhartha Regalado MD MD cha Harris, Amy RN RN Corrections: (The following items were deleted from the chart) 08:48 08:38 01/19/2020 08:38 Discharged to Home. Impression: Dysuria. Condition is Stable. ah Forms are Medication Reconciliation Form, Thank You Letter, Antibiotic Education, Prescription Opioid Use. Follow up: Private Physician; When: 2 - 3 days; Reason: Recheck today's complaints, Continuance of care, Re-evaluation by your physician. Follow up: Kaykay Joshi; When: 2 - 3 days; Reason: Recheck today's complaints, Re-evaluation by your physician. Problem is new. Symptoms have improved. rafiq
[2020-01-19 08:40] LABS: Urine Blood NEGATIVE (NEG); Urine Glucose NEGATIVE (NEG); Urine Protein NEGATIVE (NEG); Urine pH 6.5 (5.0-7.0)
[2020-01-19] MEDS ORDERED: PHENAZOPYRIDINE 100MG TAB PO ONE (08:46)
[2020-01-19] MEDS ORDERED: CIPROFLOXACIN HCL 500 MG TAB ONE (08:47)
[2020-01-19 08:52] VITALS: BP 120/77; TEMP 97.5; O2SAT 97
--- OUTSIDE RECORDS SUMMARY | 2020-01-23 00:24 | XMS REPORT | Clinical Summary ---
:1995 Author Organization [facility] Address [address] [place] [address] Care Team Providers Name Role Phone Unavailable [...] Not on file Results Not on fileafter 01/21/2019 Advance Directives For more information, please contact:[address] [phone] Code Status Date Activated Date Inactivated Comments Full Code 08/27/2016 6:32 AM 08/31/2016 1:52 PM This code status was determined by: Patient
--- OUTSIDE RECORDS SUMMARY | 2020-01-23 00:25 | XMS REPORT | Continuity of Care Document ---
:1995 Author Organization [facility] t Address [address] [place] [address] Care Team Providers Name Role Phone EFRAIN LEYVA Attending Clinician Unavailable EFRAIN LEYVA Admitting Clinician Unavailable Problems Condition Condition Condition Status Onset Resolution Last Treating Co mments Source Name Details Category Date Date Treatment Clinician Date [place] Choledocho Disease Active C [facility] lithiasis lithiasis 5-13 [facility] Allergies, Adverse Reactions, Alerts Allergy Allergy Status Severity Reaction(s) Onset Inactive Treating Comm ents Source Name Type Date Date Clinician Acetamin Drug Active Swelling Hands [facility] l[facility] Apple Drug Active Rash Apple [facility] Cider Allergy 5-13 [facility] Vinegar 00:[facility]: Medical 00 [place] Cinnamon Drug Active Swelling Throat [facility] Analogue Allergy 5-13 [facility] - s 00:00: Medical 00 [place] Social History Social Habit Start Date Stop Date Quantity Comments Source Sex Assigned At [facility] Smoking Status Start Date Stop Date Source Never smoker [facility] Medications This patient has no known medications. Procedures This patient has no known procedures. Results Test Description Test Time Test Comments Results Result Comments Source CBC W/PLT COUNT & AUTO DIFFERENTIAL 2016-08-31 06:31:00 Test Item Value Reference Range Interpretation Comme nts WHITE BLOOD CELL COUNT (BEAKER) (test code = 775) 8.4 K/ L 4.0- 10.0 RED BLOOD CELL COUNT (BEAKER) (test code = 761) 4.76 M/ L 4.00-5 .00 HEMOGLOBIN (BEAKER) (test code = 410) 14.0 GM/DL 12.0-15.0 HEMATOCRIT (BEAKER) (test code = 411) 43.3 % 36.0-45.0 MEAN CORPUSCULAR VOLUME (BEAKER) (test code = 753) 91.0 fL 82. 0-99.0 MEAN CORPUSCULAR HEMOGLOBIN (BEAKER) (test code = 751) 29.5 pg 27.0-33.0 MEAN CORPUSCULAR HEMOGLOBIN CONC (BEAKER) (test code = 752) 32.4 GM/DL 32.0-36.0 RED CELL DISTRIBUTION WIDTH (BEAKER) (test code = 412) 11.5 % 10.3-14.2 PLATELET COUNT (BEAKER) (test code = 756) 215 K/CU MM 150-430 MEAN PLATELET VOLUME (BEAKER) (test code = 754) 7.7 fL 6.5-10 .5 NUCLEATED RED BLOOD CELLS (BEAKER) (test code = 413) 0 /100 WBC 0 -0 NEUTROPHILS RELATIVE PERCENT (BEAKER) (test code = 429) 48 % LYMPHOCYTES RELATIVE PERCENT (BEAKER) (test code = 430) 35 % MONOCYTES RELATIVE PERCENT (BEAKER) (test code = 431) 9 % EOSINOPHILS RELATIVE PERCENT (BEAKER) (test code = 432) 7 % BASOPHILS RELATIVE PERCENT (BEAKER) (test code = 437) 1 % NEUTROPHILS ABSOLUTE COUNT (BEAKER) (test code = 670) 4.02 K/ L 1.80-8.00 LYMPHOCYTES ABSOLUTE COUNT (BEAKER) (test code = 414) 2.96 K/ L 1.48-4.50 MONOCYTES ABSOLUTE COUNT (BEAKER) (test code = 415) 0.78 K/ L 0. 00-1.30 EOSINOPHILS ABSOLUTE COUNT (BEAKER) (test code = 416) 0.58 K/ L 0.00-0.50 H BASOPHILS ABSOLUTE COUNT (BEAKER) (test code = 417) 0.04 K/ L 0. 00-0.20 0.00HEPATIC FUNCTION [id number] 06:03:00 Test Item Value Reference Range Interpretation Comments TOTAL PROTEIN (BEAKER) (test code = 7.6 gm/dL 6.0-8.3 770) ALBUMIN (BEAKER) (test code = 1145) 4.4 g/dL 3.5-5.0 BILIRUBIN TOTAL (BEAKER) (test code 1.1 mg/dL 0.2-1.2 = 377) BILIRUBIN DIRECT (BEAKER) (test 0.5 mg/dL 0.1-0.5 code = 706) ALKALINE PHOSPHATASE (BEAKER) (test 115 U/L 40-150 code = 346) AST (SGOT) (BEAKER) (test code = 34 U/L 5-34 353) ALT (SGPT) (BEAKER) (test code = 151 U/L 6-55 H 347) BASIC METABOLIC [id number] 06:03:00 Test Item Value Reference Range Interpretation Comments SODIUM (BEAKER) 139 meq/L 136-145 (test code = 381) POTASSIUM (BEAKER) 3.5 meq/L 3.5-5.1 (test code = 379) CHLORIDE (BEAKER) 107 meq/L 98-107 (test code = 382) CO2 (BEAKER) (test 17 meq/L 22-29 L code = 355) BLOOD UREA NITROGEN 5 mg/dL 7-21 L (BEAKER) (test code = 354) CREATININE (BEAKER) 0.65 mg/dL 0.57-1.25 (test code = 358) GLUCOSE RANDOM 72 mg/dL 70-105 (BEAKER) (test code = 652) CALCIUM (BEAKER) 9.1 mg/dL 8.4-10.2 (test code = 697) EGFR (BEAKER) (test 119 mL/min/1.73 ESTIM ATED GFR IS code = 1092) sq m NOT ACCURATE CREATININE CLEARANCE IN PREDICTING GLOMERULAR FILTRATION RATE . ESTIMATED GFR I S NOT APPLICABLE FOR DIALYSIS PATIEN TS. CBC W/PLT COUNT & AUTO [id number] 08:15:00 Test Item Value Reference Range Interpretation Comments WHITE BLOOD CELL COUNT (BEAKER) 9.0 K/ L 4.0-10.0 (test code = 775) RED BLOOD CELL COUNT (BEAKER) 4.58 M/ L 4.00-5.00 (test code = 761) HEMOGLOBIN (BEAKER) (test code = 14.1 GM/DL 12.0-15.0 410) HEMATOCRIT (BEAKER) (test code = 42.1 % 36.0-45.0 411) MEAN CORPUSCULAR VOLUME (BEAKER) 92.0 fL 82.0-99.0 (test code = 753) MEAN CORPUSCULAR HEMOGLOBIN 30.8 pg 27.0-33.0 (BEAKER) (test code = 751) MEAN CORPUSCULAR HEMOGLOBIN CONC 33.5 GM/DL 32.0-36.0 (BEAKER) (test code = 752) RED CELL DISTRIBUTION WIDTH 11.3 % 10.3-14.2 (BEAKER) (test code = 412) PLATELET COUNT (BEAKER) (test 181 K/CU MM 150-430 code = 756) MEAN PLATELET VOLUME (BEAKER) 7.8 fL 6.5-10.5 (test code = 754) NUCLEATED RED BLOOD CELLS 0 /100 WBC 0-0 (BEAKER) (test code = 413) NEUTROPHILS RELATIVE PERCENT 69 % (BEAKER) (test code = 429) LYMPHOCYTES RELATIVE PERCENT 21 % (BEAKER) (test code = 430) MONOCYTES RELATIVE PERCENT 7 % (BEAKER) (test code = 431) EOSINOPHILS RELATIVE PERCENT 3 % (BEAKER) (test code = 432) BASOPHILS RELATIVE PERCENT 1 % (BEAKER) (test code = 437) NEUTROPHILS ABSOLUTE COUNT 6.24 K/ L 1.80-8.00 (BEAKER) (test code = 670) LYMPHOCYTES ABSOLUTE COUNT 1.85 K/ L 1.48-4.50 (BEAKER) (test code = 414) MONOCYTES ABSOLUTE COUNT (BEAKER) 0.67 K/ L 0.00-1.30 (test code = 415) EOSINOPHILS ABSOLUTE COUNT 0.23 K/ L 0.00-0.50 (BEAKER) (test code = 416) BASOPHILS ABSOLUTE COUNT (BEAKER) 0.05 K/ L 0.00-0.20 (test code = 417) 0.00HEPATIC FUNCTION [id number] 06:43:00 Test Item Value Reference Range Interpretation Comments TOTAL PROTEIN (BEAKER) (test code = 7.0 gm/dL 6.0-8.3 770) ALBUMIN (BEAKER) (test code = 1145) 4.1 g/dL 3.5-5.0 BILIRUBIN TOTAL (BEAKER) (test code 1.2 mg/dL 0.2-1.2 = 377) BILIRUBIN DIRECT (BEAKER) (test 0.5 mg/dL 0.1-0.5 code = 706) ALKALINE PHOSPHATASE (BEAKER) (test 119 U/L 40-150 code = 346) AST (SGOT) (BEAKER) (test code = 50 U/L 5-34 H 353) ALT (SGPT) (BEAKER) (test code = 189 U/L 6-55 H 347) BASIC METABOLIC [id number] 06:43:00 Test Item Value Reference Range Interpretation Comments SODIUM (BEAKER) 137 meq/L 136-145 (test code = 381) POTASSIUM (BEAKER) 4.1 meq/L 3.5-5.1 (test code = 379) CHLORIDE (BEAKER) 109 meq/L 98-107 H (test code = 382) CO2 (BEAKER) (test 14 meq/L 22-29 L code = 355) BLOOD UREA NITROGEN 5 mg/dL 7-21 L (BEAKER) (test code = 354) CREATININE (BEAKER) 0.63 mg/dL 0.57-1.25 (test code = 358) GLUCOSE RANDOM 64 mg/dL 70-105 L (BEAKER) (test code = 652) CALCIUM (BEAKER) 8.8 mg/dL 8.4-10.2 (test code = 697) EGFR (BEAKER) (test 123 mL/min/1.73 ESTIM ATED GFR IS code = 1092) sq m NOT ACCURATE CREATININE CLEARANCE IN PREDICTING GLOMERULAR FILTRATION RATE . ESTIMATED GFR I S NOT APPLICABLE FOR DIALYSIS PATIEN TS. SCREEN, [id number] 10:31:00 Test Item Value Reference Range Interpretation Comments TEST URINE (BEAKER) (test Negative code = 583) CBC W/PLT COUNT & AUTO [id number] 06:59:00 Test Item Value Reference Range Interpretation Comments WHITE BLOOD CELL COUNT (BEAKER) 7.0 K/ L 4.0-10.0 (test code = 775) RED BLOOD CELL COUNT (BEAKER) 4.35 M/ L 4.00-5.00 (test code = 761) HEMOGLOBIN (BEAKER) (test code = 13.4 GM/DL 12.0-15.0 410) HEMATOCRIT (BEAKER) (test code = 40.4 % 36.0-45.0 411) MEAN CORPUSCULAR VOLUME (BEAKER) 92.8 fL 82.0-99.0 (test code = 753) MEAN CORPUSCULAR HEMOGLOBIN 30.9 pg 27.0-33.0 (BEAKER) (test code = 751) MEAN CORPUSCULAR HEMOGLOBIN CONC 33.3 GM/DL 32.0-36.0 (BEAKER) (test code = 752) RED CELL DISTRIBUTION WIDTH 11.4 % 10.3-14.2 (BEAKER) (test code = 412) PLATELET COUNT (BEAKER) (test 160 K/CU MM 150-430 code = 756) MEAN PLATELET VOLUME (BEAKER) 8.0 fL 6.5-10.5 (test code = 754) NUCLEATED RED BLOOD CELLS 0 /100 WBC 0-0 (BEAKER) (test code = 413) NEUTROPHILS RELATIVE PERCENT 53 % (BEAKER) (test code = 429) LYMPHOCYTES RELATIVE PERCENT 36 % (BEAKER) (test code = 430) MONOCYTES RELATIVE PERCENT 7 % (BEAKER) (test code = 431) EOSINOPHILS RELATIVE PERCENT 4 % (BEAKER) (test code = 432) BASOPHILS RELATIVE PERCENT 1 % (BEAKER) (test code = 437) NEUTROPHILS ABSOLUTE COUNT 3.69 K/ L 1.80-8.00 (BEAKER) (test code = 670) LYMPHOCYTES ABSOLUTE COUNT 2.51 K/ L 1.48-4.50 (BEAKER) (test code = 414) MONOCYTES ABSOLUTE COUNT (BEAKER) 0.47 K/ L 0.00-1.30 (test code = 415) EOSINOPHILS ABSOLUTE COUNT 0.26 K/ L 0.00-0.50 (BEAKER) (test code = 416) BASOPHILS ABSOLUTE COUNT (BEAKER) 0.05 K/ L 0.00-0.20 (test code = 417) 0.00HEPATIC FUNCTION [id number] 06:29:00 Test Item Value Reference Range Interpretation Comments TOTAL PROTEIN (BEAKER) (test code = 6.6 gm/dL 6.0-8.3 770) ALBUMIN (BEAKER) (test code = 1145) 4.0 g/dL 3.5-5.0 BILIRUBIN TOTAL (BEAKER) (test code 1.0 mg/dL 0.2-1.2 = 377) BILIRUBIN DIRECT (BEAKER) (test 0.5 mg/dL 0.1-0.5 code = 706) ALKALINE PHOSPHATASE (BEAKER) (test 101 U/L 40-150 code = 346) AST (SGOT) (BEAKER) (test code = 51 U/L 5-34 H 353) ALT (SGPT) (BEAKER) (test code = 210 U/L 6-55 H 347) BASIC METABOLIC [id number] 06:29:00 Test Item Value Reference Range Interpretation Comments SODIUM (BEAKER) 139 meq/L 136-145 (test code = 381) POTASSIUM (BEAKER) 3.7 meq/L 3.5-5.1 (test code = 379) CHLORIDE (BEAKER) 107 meq/L 98-107 (test code = 382) CO2 (BEAKER) (test 21 meq/L 22-29 L code = 355) BLOOD UREA NITROGEN 4 mg/dL 7-21 L (BEAKER) (test code = 354) CREATININE (BEAKER) 0.62 mg/dL 0.57-1.25 (test code = 358) GLUCOSE RANDOM 64 mg/dL 70-105 L (BEAKER) (test code = 652) CALCIUM (BEAKER) 8.7 mg/dL 8.4-10.2 (test code = 697) EGFR (BEAKER) (test 125 mL/min/1.73 ESTIM ATED GFR IS code = 1092) sq m NOT ACCURATE CREATININE CLEARANCE IN PREDICTING GLOMERULAR FILTRATION RATE . ESTIMATED GFR I S NOT APPLICABLE FOR DIALYSIS PATIEN TS. HEPATIC FUNCTION [id number] 05:02:00 Test Item Value Reference Range Interpretation Comments TOTAL PROTEIN (BEAKER) (test code = 6.0 gm/dL 6.0-8.3 770) ALBUMIN (BEAKER) (test code = 1145) 3.5 g/dL 3.5-5.0 BILIRUBIN TOTAL (BEAKER) (test code 0.9 mg/dL 0.2-1.2 = 377) BILIRUBIN DIRECT (BEAKER) (test 0.4 mg/dL 0.1-0.5 code = 706) ALKALINE PHOSPHATASE (BEAKER) (test 100 U/L 40-150 code = 346) AST (SGOT) (BEAKER) (test code = 73 U/L 5-34 H 353) ALT (SGPT) (BEAKER) (test code = 250 U/L 6-55 H 347) BASIC METABOLIC [id number] 05:02:00 Test Item Value Reference Range Interpretation Comments SODIUM (BEAKER) 140 meq/L 136-145 (test code = 381) POTASSIUM (BEAKER) 3.8 meq/L 3.5-5.1 (test code = 379) CHLORIDE (BEAKER) 110 meq/L 98-107 H (test code = 382) CO2 (BEAKER) (test 22 meq/L 22-29 code = 355) BLOOD UREA NITROGEN 4 mg/dL 7-21 L (BEAKER) (test code = 354) CREATININE (BEAKER) 0.62 mg/dL 0.57-1.25 (test code = 358) GLUCOSE RANDOM 75 mg/dL 70-105 (BEAKER) (test code = 652) CALCIUM (BEAKER) 8.4 mg/dL 8.4-10.2 (test code = 697) EGFR (BEAKER) (test 125 mL/min/1.73 ESTIM ATED GFR IS code = 1092) sq m NOT ACCURATE CREATININE CLEARANCE IN PREDICTING GLOMERULAR FILTRATION RATE . ESTIMATED GFR I S NOT APPLICABLE FOR DIALYSIS PATIEN TS. CBC W/PLT COUNT & AUTO [id number] 04:37:00 Test Item Value Reference Range Interpretation Comments WHITE BLOOD CELL COUNT (BEAKER) 7.1 K/ L 4.0-10.0 (test code = 775) RED BLOOD CELL COUNT (BEAKER) 3.94 M/ L 4.00-5.00 L (test code = 761) HEMOGLOBIN (BEAKER) (test code = 12.1 GM/DL 12.0-15.0 410) HEMATOCRIT (BEAKER) (test code = 36.2 % 36.0-45.0 411) MEAN CORPUSCULAR VOLUME (BEAKER) 91.8 fL 82.0-99.0 (test code = 753) MEAN CORPUSCULAR HEMOGLOBIN 30.8 pg 27.0-33.0 (BEAKER) (test code = 751) MEAN CORPUSCULAR HEMOGLOBIN CONC 33.5 GM/DL 32.0-36.0 (BEAKER) (test code = 752) RED CELL DISTRIBUTION WIDTH 12.1 % 10.3-14.2 (BEAKER) (test code = 412) PLATELET COUNT (BEAKER) (test 157 K/CU MM 150-430 code = 756) MEAN PLATELET VOLUME (BEAKER) 7.8 fL 6.5-10.5 (test code = 754) NUCLEATED RED BLOOD CELLS 0 /100 WBC 0-0 (BEAKER) (test code = 413) NEUTROPHILS RELATIVE PERCENT 53 % (BEAKER) (test code = 429) LYMPHOCYTES RELATIVE PERCENT 36 % (BEAKER) (test code = 430) MONOCYTES RELATIVE PERCENT 6 % (BEAKER) (test code = 431) EOSINOPHILS RELATIVE PERCENT 4 % (BEAKER) (test code = 432) BASOPHILS RELATIVE PERCENT 1 % (BEAKER) (test code = 437) NEUTROPHILS ABSOLUTE COUNT 3.75 K/ L 1.80-8.00 (BEAKER) (test code = 670) LYMPHOCYTES ABSOLUTE COUNT 2.54 K/ L 1.48-4.50 (BEAKER) (test code = 414) MONOCYTES ABSOLUTE COUNT (BEAKER) 0.44 K/ L 0.00-1.30 (test code = 415) EOSINOPHILS ABSOLUTE COUNT 0.27 K/ L 0.00-0.50 (BEAKER) (test code = 416) BASOPHILS ABSOLUTE COUNT (BEAKER) 0.05 K/ L 0.00-0.20 (test code = 417) [id number] 07:40:00 Test Item Value Reference Range Interpretation Comments LIPASE (BEAKER) (test code = 749) 8 U/L 8-78 [id number] 07:40:00 Test Item Value Reference Range Interpretation Comments AMYLASE (BEAKER) (test code = 349) 44 U/L 25-125 BASIC METABOLIC [id number] 07:40:00 Test Item Value Reference Range Interpretation Comments SODIUM (BEAKER) 140 meq/L 136-145 (test code = 381) POTASSIUM (BEAKER) 3.8 meq/L 3.5-5.1 (test code = 379) CHLORIDE (BEAKER) 109 meq/L 98-107 H (test code = 382) CO2 (BEAKER) (test 22 meq/L 22-29 code = 355) BLOOD UREA NITROGEN 4 mg/dL 7-21 L (BEAKER) (test code = 354) CREATININE (BEAKER) 0.63 mg/dL 0.57-1.25 (test code = 358) GLUCOSE RANDOM 94 mg/dL 70-105 (BEAKER) (test code = 652) CALCIUM (BEAKER) 8.4 mg/dL 8.4-10.2 (test code = 697) EGFR (BEAKER) (test 123 mL/min/1.73 ESTIM ATED GFR IS code = 1092) sq m NOT ACCURATE CREATININE CLEARANCE IN PREDICTING GLOMERULAR FILTRATION RATE . ESTIMATED GFR I S NOT APPLICABLE FOR DIALYSIS PATIEN TS. HEPATIC FUNCTION [id number] 07:40:00 Test Item Value Reference Range Interpretation Comments TOTAL PROTEIN (BEAKER) (test code = 6.2 gm/dL 6.0-8.3 770) ALBUMIN (BEAKER) (test code = 1145) 3.7 g/dL 3.5-5.0 BILIRUBIN TOTAL (BEAKER) (test code 0.7 mg/dL 0.2-1.2 = 377) BILIRUBIN DIRECT (BEAKER) (test 0.3 mg/dL 0.1-0.5 code = 706) ALKALINE PHOSPHATASE (BEAKER) (test 106 U/L 40-150 code = 346) AST (SGOT) (BEAKER) (test code = 81 U/L 5-34 H 353) ALT (SGPT) (BEAKER) (test code = 309 U/L 6-55 H 347) CBC W/PLT COUNT & AUTO [id number] 06:56:00 Test Item Value Reference Range Interpretation Comments WHITE BLOOD CELL COUNT (BEAKER) 7.3 K/ L 4.0-10.0 (test code = 775) RED BLOOD CELL COUNT (BEAKER) 3.89 M/ L 4.00-5.00 L (test code = 761) HEMOGLOBIN (BEAKER) (test code = 12.3 GM/DL 12.0-15.0 410) HEMATOCRIT (BEAKER) (test code = 36.0 % 36.0-45.0 411) MEAN CORPUSCULAR VOLUME (BEAKER) 92.4 fL 82.0-99.0 (test code = 753) MEAN CORPUSCULAR HEMOGLOBIN 31.5 pg 27.0-33.0 (BEAKER) (test code = 751) MEAN CORPUSCULAR HEMOGLOBIN CONC 34.1 GM/DL 32.0-36.0 (BEAKER) (test code = 752) RED CELL DISTRIBUTION WIDTH 12.5 % 10.3-14.2 (BEAKER) (test code = 412) PLATELET COUNT (BEAKER) (test 163 K/CU MM 150-430 code = 756) MEAN PLATELET VOLUME (BEAKER) 7.9 fL 6.5-10.5 (test code = 754) NUCLEATED RED BLOOD CELLS 0 /100 WBC 0-0 (BEAKER) (test code = 413) NEUTROPHILS RELATIVE PERCENT 56 % (BEAKER) (test code = 429) LYMPHOCYTES RELATIVE PERCENT 33 % (BEAKER) (test code = 430) MONOCYTES RELATIVE PERCENT 8 % (BEAKER) (test code = 431) EOSINOPHILS RELATIVE PERCENT 3 % (BEAKER) (test code = 432) BASOPHILS RELATIVE PERCENT 1 % (BEAKER) (test code = 437) NEUTROPHILS ABSOLUTE COUNT 4.11 K/ L 1.80-8.00 (BEAKER) (test code = 670) LYMPHOCYTES ABSOLUTE COUNT 2.39 K/ L 1.48-4.50 (BEAKER) (test code = 414) MONOCYTES ABSOLUTE COUNT (BEAKER) 0.57 K/ L 0.00-1.30 (test code = 415) EOSINOPHILS ABSOLUTE COUNT 0.19 K/ L 0.00-0.50 (BEAKER) (test code = 416) BASOPHILS ABSOLUTE COUNT (BEAKER) 0.05 K/ L 0.00-0.20 (test code = 417) [id number] 06:46:00 Test Item Value Reference Range Interpretation Comments PROTIME (BEAKER) (test code = 15.3 seconds 11.7-14.7 H 759) INR (BEAKER) (test code = 370) 1.2 <=5.9 PARTIAL THROMBOPLASTIN TIME 32.9 seconds 22.5-36.0 (BEAKER) (test code = 760) RECOMMENDED COUMADIN/WARFARIN INR THERAPY RANGESSTANDARD DOSE: 2.0 - 3.0 Includes: PROPHYLAXIS forvenous thrombosis, systemic embolization; TREATMENT for venous thrombosis and/or pulmonary embolus.HIGH RISK: Target INR is 2.5-3.5 for patients with mechanical heart valves.
== END 2020-01-19 08:48 | disposition home or self-care (01) ==
LOC: ER 07:52
DX: R30.0 Dysuria (principal); Z88.8 Allergy status to other drugs, medicaments and biological substances; Z91.018 Allergy to other foods
CPT/HCPCS: 81003; 81025; 87086; 87088; 99284

== ENCOUNTER 2022-05-31 07:48 | Emergency (ER) | payer SELFPAY ==
--- OUTSIDE RECORDS SUMMARY | 2022-05-31 07:52 | XMS REPORT | Continuity of Care Document ---
:1995 Author Organization [facility] t Address [address] [place] [address] Care Team Providers Name Role Phone Titi Ruiz MD Attending Clinician Octavio Murillo DO Attending Clinician David Durán MD Attending Clinician PRASAD MARCH Attending Clinician Unavailable Nurse, [facility] Attending Clinician Unavailable Prasad Renteria Attending Clinician Doctor Unassigned, [place] Attending Clinician Unavailable Kingsley Beavers Attending Clinician JUAN MIGUEL LEYVA Attending Clinician Unavailable JUAN MIGUEL LEYVA Admitting Clinician Unavailable Problems Condition Condition Condition Status Onset Resolution Last Treating Co mments Source Name Details Category Date Date Treatment Clinician Date Choledocho Choledocho Disease Active C [facility] lithiasis lithiasis 08-27 [facility] s 00:[facility]: [facility] Center No known No known Disease Unive rs active active ity of problems problems [facility] Allergies, Adverse Reactions, Alerts Allergy Allergy Status Severity Reaction(s) Onset Inactive Treating Comm ents Source Name Type Date Date Clinician ASPIRIN- DRUG Active Swelling Univer s SOD 12-23 ity of BICARB-C 00:00: [place] ITRIC 00 Medical ACID Branch Aspirin- Propensi Active Swelling Univ ers Sod ty to 08 ity of Bicarb-C adverse 00:00: [place] itric reaction 00 Medical Acid s Branch Acetamin Drug Active Swelling Hands [facility] lcium [facility]: Medical Carbonat 00 Center Apple Drug Active Rash Apple [facility] Cider Allergy 08-27 [facility] Vinegar 00:[facility]: Medical 00 Center Cinnamon Drug Active Swelling Throat [facility] Analogue Allergy 08-27 [facility] 00:[facility]: Medical 00 Center Social History Social Habit Start Date Stop Date Quantity Comments Source Exposure to Not sure [facility] SARS-CoV-2 (event) [facility]ica [facility] [address] Tobacco use and 2020-04-29 2020-04-29 Never used [facility] exposure 00:00:00 00:00:00 [facility] Sex Assigned At [address] [facility] kes 00:00:00 00:00:00 Medical Center Smoking Status Start Date Stop Date Source Never smoker [facility] Unknown if ever smoked [facility] Medications Ordered Filled Start Stop Current Ordering Indication Dosage Frequency Signature Comments Components Source Medication Medication Date Date Medication? Clinician (SIG) Name Name ondansetron 2020- No 4mg 4 mg, Slow Univers (ZOFRAN 05-02 IV Push, ity of (PF)) 16:00: 03:59 ONCE, 1 [place] injection 4 00 :00 dose, Sat Med ical mg 05/02/20 at Branch 1000, RICHI ketorolac 2020- No 30mg 30 mg, Unive rs (TORADOL) 05-02 Slow IV ity of injection 15:00: 14:55 Push, [place] 30 mg 00 :00 ONCE, 1 Medical dose, Sat Boulevard 05/02/20 at 0900, RICHI
Fa culty member approving Restricted medication : LORRI MARTINEZ morpHINE 2020- No 2mg 2 mg, Slow Un kendall injection 2 05-02 IV Push, ity of mg 12:00: 10:52 ONCE, 1 [place] 00 :00 dose, Sat Medical 05/02/20 at Branch 0600, STAT lactated 2020- No 1000mL at 999 Univ ers ringers IV 05-02 mL/hr, ity of infusion 12:00: 12:32 1,000 mL, Rai as 1,000 mL 00 :00 IV Medical Infusion, Boulevard ONCE, 1 dose, 05/02/20 at 0600, RICHI proMETHazin 2020- No 25mg 25 mg, Uni vers e 05-02 Oral, ity of (PHENERGAN) 11:45: 10:52 [place] 1 [place] 25 00 :00 dose, Sat Medic al mg 05/02/[address] 0545, RICHI proMETHazin Yes [id number] 25mg Insert 1 Univers e 05-02 Suppositor ity of (PHENERGAN) 00:00: y into [place] 25 mg 00 rectum Medical suppository every 4 Branc h (four) hours as needed for Nausea and Vomiting (N/V). morpHINE 2020- No 4mg 4 mg, Slow Un [place] injection 4 04-30 IV Push, ity of mg 01:45: 00:36 ONCE, 1 [place] 00 :00 dose, [facility] 04/29/[address] 1945, STAT ondansetron 2020- No 4mg 4 mg, Slow Univers (ZOFRAN 04-30 IV Push, ity of (PF)) 01:45: 00:36 ONCE, 1 [place] injection 4 00 :00 dose, [facility] Med ical mg 04/29/[address] 1945, RICHI iohexol 2020- No 120mL 120 mL, Unive rs (OMNIPAQUE 04-30 Intravenou it y of 350 00:45: 00:15 s, ONCE, 1 [place] BULK-150 00 :00 dose, [facility] Medica l mL) 04/29/[address] injection 1845, 120 mL Routine sodium Yes 5mL 5 mL, Univers chloride 04-29 Intravenou ity o f (NS) 23:08: s, PRN, [place] injection 5 07 Starting Medi arie mL [facility] 04/29/20 at 1708, Until Discontinu ed, Routine, IV line flushing dicyclomine Yes [id number] 10mg Take 1 Univers (BENTYL) 10 - capsule by it y of mg capsule 00:00: mouth 4 [place] (four) Medical times [address] daily. ondansetron Yes [id number] 4mg Take 1 Univers 4 mg 1-13 tablet by ity of disintegrat 00:00: mouth [place] ing tablet 00 every 4 Medica l (four) Branch hours as needed for Nausea and Vomiting (N/V). dicyclomine Yes [id number] 10mg Take 1 Univers (BENTYL) 10 1-13 capsule by it y of mg capsule 00:00: mouth 4 [place] 00 (four) Medical times Branch daily. ondansetron Yes [id number] 4mg Take 1 Univers 4 mg 1-13 tablet by ity of disintegrat 00:00: mouth [place] ing tablet 00 every 4 Medica l (four) Branch hours as needed for Nausea and Vomiting (N/V). ondansetron 2018- No 4mg 4 mg, Slow Univers (ZOFRAN 12-23-08 IV Push, ity of (PF)) 05:00: 06:52 ONCE, 1 [place] injection 4 00 :00 dose, [facility] ical mg 12/23/18 at Branch 0000, Routine morpHINE 2018- No 4mg 4 mg, Slow Un kendall injection 4 12-23 IV Push, ity of mg 05:00: 06:52 ONCE, 1 [place] 00 :00 dose, [facility] 12/23/18 at Branch 0000, Routine NaCl 0.9% 2018- No 1000mL at 999 Uni vers (NS) bolus 12-23 mL/hr, ity of infusion 04:00: 08:04 1,000 mL, Rai as 1,000 mL 00 :00 IV Medical Infusion, Branch ONCE, 1 dose, 12/22/18 at 2300, STAT ondansetron 2018- Yes [id number] 4mg Take 1 Univers (ZOFRAN) 4 9-08 tablet by ity of mg tablet 00:00: mouth [place] 00 every 8 Medical (eight) Branch hours as needed for Nausea and Vomiting (N/V). ondansetron 2018-0 Yes [id number] 4mg Take 1 Univers (ZOFRAN) 4 9-08 tablet by ity of mg tablet 00:00: mouth [place] 00 every 8 Medical (eight) Branch hours as needed for Nausea and Vomiting (N/V). ondansetron 2018-0 Yes [id number] 4mg Take 1 Univers (ZOFRAN) 4 9-08 tablet by ity of mg tablet 00:00: mouth [place] 00 every 8 Medical (eight) Branch hours as needed for Nausea and Vomiting (N/V). ondansetron 2018- Yes [id number] 4mg Take 1 Univers (ZOFRAN) 4 9-08 tablet by ity of mg tablet 00:00: mouth [place] 00 every 8 Medical (eight) Branch hours as needed for Nausea and Vomiting (N/V). ondansetron 2018- Yes [id number] 4mg Take 1 Univers (ZOFRAN) 4 9-08 tablet by ity of mg tablet 00:00: mouth [place] 00 every 8 Medical (eight) Branch hours as needed for Nausea and Vomiting (N/V). ondansetron 2018- Yes [id number] 4mg Take 1 Univers (ZOFRAN) 4 9-08 tablet by ity of mg tablet 00:00: mouth [place] 00 every 8 Medical (eight) Branch hours as needed for Nausea and Vomiting (N/V). ondansetron 2018- Yes [id number] 4mg Take 1 Univers (ZOFRAN) 4 9-08 tablet by ity of mg tablet 00:00: mouth [place] 00 every 8 Medical (eight) Branch hours as needed for Nausea and Vomiting (N/V). Vital Signs Vital Name Observation Time Observation Value Comments Source Systolic blood 2020-05-02 15:00:00 117 mm[Hg] [facility] Diastolic blood 2020-05-02 15:00:00 72 mm[Hg] [facility] Heart rate 2020-05-02 15:00:00 66 /min [facility] Respiratory rate 2020-05-02 15:00:00 16 /min [facility] Oxygen saturation in 2020-05-02 15:00:00 99 /min [facility] Arterial blood by [facility] Pulse oximetry [address] Body temperature 2020-05-02 10:33:00 37.06 Carrie [facility] Body height 2020-05-02 10:33:00 157.5 cm [facility] Body weight 2020-05-02 10:33:00 72.576 kg [facility] BMI 2020-05-02 10:33:00 29.26 kg/m2 [facility] [place] [facility] Systolic blood 2020-04-30 02:01:00 134 mm[Hg] Univer sity of pressure [place] [facility] Diastolic blood 2020-04-30 02:01:00 72 mm[Hg] Unive rsity of pressure [place] [facility] Heart rate 2020-04-30 02:01:00 80 /min [facility] [place] [facility] Respiratory rate 2020-04-30 02:01:00 15 /min Univ ersity [facility] [place] [facility] Oxygen saturation in 2020-04-30 02:01:00 99 /min University of Arterial blood by [place] [facility] Pulse oximetry Branch Body temperature 2020-04-29 22:36:00 37.83 Carrie [facility] ers[facility] [place] [facility] Body weight 2020-04-29 22:36:00 72.576 kg [facility] [place] [facility] BMI 2020-04-29 22:36:00 29.26 kg/m2 [facility] [place] [facility] Systolic blood 2020-04-29 22:31:00 146 mm[Hg] Univer sity of pressure [place] [facility] Diastolic blood 2020-04-29 22:31:00 67 mm[Hg] Unive rsity of pressure [place] [facility] Heart rate 2020-04-29 22:31:00 88 /min [facility] [place] [facility] Body temperature 2020-04-29 22:31:00 37.5 Carrie [facility] ers[facility] [place] [facility] Respiratory rate 2020-04-29 22:31:00 17 /min Univ ersity [facility] [place] [facility] Body height 2020-04-29 22:31:00 157.5 cm [facility] [place] [facility] Body weight 2020-04-29 22:31:00 72.576 kg [facility] [place] [facility] BMI 2020-04-29 22:31:00 29.26 kg/m2 [facility] [place] [facility] Oxygen saturation in 2020-04-29 22:31:00 99 /min University of Arterial blood by [place] [facility] Pulse oximetry Branch Systolic blood 2018-12-23 08:04:00 111 mm[Hg] Univer sity of pressure [place] [facility] Diastolic blood 2018-12-23 08:04:00 48 mm[Hg] Unive rsity of pressure [place] [facility] Heart rate 2018-12-23 08:04:00 90 /min [facility] Respiratory rate 2018-12-23 08:04:00 16 /min [facility] Oxygen saturation in 2018-12-23 08:04:00 99 /min [facility] Arterial blood by [facility] Pulse oximetry [address] Body temperature 2018-12-23 04:01:00 37.5 Carrie [facility] Body height 2018-12-23 04:01:00 157.5 cm [facility] Body weight 2018-12-23 04:01:00 68.04 kg [facility] BMI 2018-12-23 04:01:00 27.44 kg/m2 [facility] Procedures Procedure Date / Time Performing Clinician Source Performed US OVARY TORSION 2020-05-02 13:59:26 Titi Ruiz [facility] ADC CLC OR LCC ONLY - 2020-05-02 12:32:00 Titi Ruiz [facility] WET PREP [facility] POCT TEST 2020-05-02 10:57:00 Titi Ruiz [facility] LIPASE 2020-05-02 10:51:00 Titi Ruiz [facility] COMP. METABOLIC PANEL 2020-05-02 10:51:00 Titi Ruiz [facility] ([id number]) [facility] CBC WITH DIFF 2020-05-02 10:51:00 Titi Ruiz [facility] URINALYSIS 2020-05-02 10:51:00 Titi Ruiz [facility] CONSENT/REFUSAL FOR 2020-05-02 10:17:47 Doctor Unassigned, No Un [facility] DIAGNOSIS AND TREATMENT Name Medical Branch COVID-19 (ID NOW RAPID 2020-04-30 00:48:00 Octavio Murillo [facility] TESTING) [facility] CT ABDOMEN PELVIS W 2020-04-30 00:21:00 Octavio Murillo [facility] CONTRAST [facility] POCT TEST 2020-04-29 23:22:00 Octavio Murillo [facility] LIPASE 2020-04-29 23:21:00 Murillo, [facility] COMP. METABOLIC PANEL 2020-04-29 23:21:00 Octavio Murillo [facility] ([id number]) [facility] CBC WITH DIFF 2020-04-29 23:21:00 Singer [facility] URINALYSIS 2020-04-29 23:21:00 Murillo, [facility] NOTICE OF PRIVACY 2020-04-29 22:30:34 Doctor Unassigned, No [facility] PRACTICES Name Medical Branch CONSENT/REFUSAL FOR 2020-04-29 22:30:13 Doctor Unassigned, No [facility] DIAGNOSIS AND TREATMENT Name [facility] XR ABDOMEN ACUTE SERIES 2018-12-23 07:01:54 Kingsley Murray [facility] POCT TEST 2018-12-23 06:55:00 Kingsley Murray [facility] LIPASE 2018-12-23 06:51:00 Kingsley Murray [facility] COMP. METABOLIC PANEL 2018-12-23 06:51:00 Kingsley Murray [facility] ([id number]) [facility] CBC WITH DIFFERENTIAL 2018-12-23 06:51:00 Kignsley Murray [facility] URINALYSIS 2018-12-23 06:51:00 Kingsley Murray [facility] Encounters Start End Encounter Admission Attending Care Care Encounter Source Date/Time Date/Time Type Type Clinicians Facility Department ID 2021-02-13 Emergency [facility] [id number] Univers 17:42:31 ity [facility] 2021-02-13 Emergency [facility] [id number] Univers [facility] 2020-05-02 2020-05-02 Emergency [facility] [id number] Univers 04:25:00 09:06:00 Titi Barkley [id number] ity [facility] [id number] [facility] [id number] [facility] 084 Branch 2020-04-29 2020-04-29 Emergency Octavio Murillo [facility] [id number] Univers 16:38:00 20:14:00 David Durán [id number] ity of [place] 4[place]2.7.2.686 [place] [facility] [id number] [place] [address] 2020-04-29 2020-04-[address] [facility] [id number] Univers 17:00:00 17:00:00 PRASAD harding aishwarya polo [facility] 2020-04-29 2020-04-29 Nurse Nurse, [facility] [id number] Univers 16:22:14 16:22:27 Visit Prasad March [facility] [id number] ity of [place] 4.2.7.2.686 Rai as Professio [phone] [address] 2020-04-29 2020-04-[address] [facility] [id number] Univers 16:00:00 16:00:00 PRASAD neff polo [facility] 2020-04-29 2020-04-29 Letter Doctor LEEROY [id number] Univers 00:00:00 00:00:00 (Out) Unassigned, NARINDER [id number] ity of [place] [facility] 4.2.7.2.686 Rai as [id number] [facility] [address] 2020-04-29 2020-04-29 Orders Doctor LEEROY [id number] Univers 00:00:00 00:00:00 Only Unassigned, NARINDER [id number] ity of [place] [facility] 4.2.7.2.686 Rai as [id number] [facility] 009 Branch 2018-12-22 2018-12-23 Emergency [facility] [id number] Univers 22:59:21 03:07:00 Kingsley Barkley [id number] i ty of [place] 4.2.7.2.686 [place] [facility] [id number] [address] Results Test Description Test Time Test Comments Results Result Comments Source ADC CLC OR LCC ONLY - WET PREP 2020-05-02 13:00:00 Test Item Value Reference Range Interpretation Comme nts CLUE CELLS WET PREP (test code = 9006878639) None Seen None Seen HPF BACTERIA WET PREP (test code = 0368100188) Few None Seen H PF A WBC WET PREP (test code = 6984643888) Few None Seen HPF A RBC WET PREP (test code = 7682334934) Many None Seen HPF A TRICHOMONAS WET PREP (test code = 7281970915) None Seen None See n HPF YEAST WET PREP (test code = 6418419858) None Seen None Seen HPF Lab Interpretation (test code = 57398-0) Abnormal [facility] ([id number][facility]2020-05-02 11:31:00 Test Item Value Reference Range Interpretation Comments NA (test code = 139 mmol/L 135-145 1546741254) K (test code = 3.9 mmol/L 3.5-5 1551711098) CL (test code = 103 mmol/L 98-108 4031613683) CO2 TOTAL (test code = 23 mmol/L 23-31 0990657841) AGAP (test code = 2-16 5613363703) BUN (test code = 9 mg/dL 7-23 5708145273) GLUCOSE (test code = 95 mg/dL 70-110 2221855091) CREATININE (test code = 0.70 mg/dL 0.5-1.04 0404373518) TOTAL BILI (test code = 1.2 mg/dL 0.1-1.1 H 1193195306) CALCIUM (test code = 9.4 mg/dL 8.6-10.6 9285275604) T PROTEIN (test code = 8.7 g/dL 6.3-8.2 H 4231923785) ALBUMIN (test code = 5.1 g/dL 3.5-5 H 5912038858) ALK PHOS (test code = 71 U/L 34-122 0985849593) ALTv (test code = 25 U/L 5-35 1742-6) AST(SGOT) (test code = 35 U/L 13-40 2696224579) eGFR Calculation mL/min/1.73m2 (Non-) (test code = 4942487105) eGFR Calculation mL/min/1.73m2 () (test code = 9073984259) MELLISSA (test code = MELLISSA) Association of Glomerular Filtration Rate (GFR) and Staging of Kidney Disease* + --+ --+ ------+| GFR (mL/min/1.73 m2) ?| With Kidney Damage ?| ?Without Kidney Damage+ --------+ --------+ +| ?>90 ?| ?Stage one ?| ? Normal ?+ ---+ ---+ -------+| ?60-89 ?| ?Stage two ?| ? Decreased GFR ? + --+ --+ ------+| ?30-59 ?| ?Stage three ?| ? Stage three ? + --+ --+ ------+| ?15-29 ?| ?Stage four ? | ? Stage four ?+ ---+ ---+ -------+| ?<15 (or dialysis) ? ?| ?Stage five ? | ? Stage five ?+ ---+ ---+ -------+ *Each stage assumes the associated GFR level has been in effect for at least three months. ?Stages 1 to 5, with or without kidney disease, indicate chronic kidney disease. Notes: Determination of stages one and two (with eGFR >59mL/min/1.73 m2) requires estimation of kidney damage for at least three months as defined by structural or functional abnormalities of the kidney, manifested by either:Pathological abnormalities or Markers of kidney damage (including abnormalities in the composition of the blood or urine or abnormalities in imaging tests). Lab Interpretation Abnormal (test code = 97850-7) [facility] 11:30:00 Test Item Value Reference Range Interpretation Comments LIPASE (test code = 3156141141) 50 U/L 0-220 Lab Interpretation (test code = Normal 88423-4) [facility] 11:27:00 Test Item Value Reference Range Interpretation Comments APPEARANCE (test code = Hazy Clear A 1317000282) COLOR (test code = Bee Yellow A 8251822867) PH (test code = 4.8-8.0 8397544117) SP GRAVITY (test code = 1.003-1.030 1727477977) GLU U QUAL (test code = Normal Normal 2260469725) BLOOD (test code = 3+ Negative A 6609834483) KETONES (test code = 20 mg/dL Negative A 6339642995) PROTEIN (test code = 30 mg/dL Negative A 2887-8) UROBILIN (test code = 4.0 mg/dL Normal A 0016200977) BILIRUBIN (test code = Negative Negative 2360359433) NITRITE (test code = Negative Negative 9230123609) LEUK QUYEN (test code = Negative Negative 3075731038) RBC/HPF (test code = See_Comment H [Autom ated message] 0721573337) The system [employer] generated this result transmit galen reference range : 0 - 3 HPF. The refe rence range was not u sed to interpret th is result as normal/abnormal . WBC/HPF (test code = See_Comment H [Autom ated message] 6345692824) The system [employer] generated this result transmit galen reference range : 0 - 5 HPF. The refe rence range was not u sed to interpret th is result as normal/abnormal . BACTERIA (test code = Few Negative A 9057390976) MUCOUS (test code = Marked Negative LPF A 1969667714) SQ EPITH (test code = HPF 1693110324) Lab Interpretation (test Abnormal code = 81509-3) [facility] WITH [id number] 11:07:00 Test Item Value Reference Range Interpretation Comments WBC (test code = See_Comment [Automated 6690-2) message] The sy stem which generated this result transmitted reference range : 4.30 - 11.10 10*3/?L. The reference range was not used to interpret this result as normal/abnormal . RBC (test code = See_Comment [Automated 789-8) message] The sy stem which generated this result transmitted reference range : 3.93 - 5.25 10*6/?L. The reference range was not used to interpret this result as normal/abnormal . HGB (test code = 15.4 g/dL 11.6-15 H 718-7) HCT (test code = 45.5 % 35.7-45.2 H 4544-3) MCV (test code = 87.0 fL 80.6-95.5 787-2) MCH (test code = 29.4 pg 25.9-32.8 785-6) MCHC (test code = 33.8 g/dL 31.6-35.1 786-4) RDW-SD (test code = 38.1 fL 39-49.9 L 73482-8) RDW-CV (test code = 11.9 % 12-15.5 L 788-0) PLT (test code = See_Comment [Automated 777-3) message] The sy stem which generated this result transmitted reference range : 166 - 358 10*3/ ?L. The reference r aparna was not used to interpret this result as normal/abnormal . MPV (test code = 10.2 fL 9.5-12.9 04400-9) NRBC/100 WBC (test See_Comment [Automat ed code = 3552410560) message] The system which generated this result transmitted reference range : 0.0 - 10.0 /100 WBCs. The refer ence range was not u sed to interpret th is result as normal/abnormal . NRBC x10^3 (test code <0.01 See_Comment [Auto mated = 4923187059) message] The s ystem which generated this result transmitted reference range : 10*3/?L. The reference range was not used to interpret this result as normal/abnormal . GRAN MAT (NEUT) % 43.4 % (test code = 770-8) IMM GRAN % (test code 0.30 % = 5664457565) LYMPH % (test code = 46.6 % 736-9) MONO % (test code = 6.6 % 5905-5) EOS % (test code = 2.2 % 713-8) BASO % (test code = 0.9 % 706-2) GRAN MAT x10^3(ANC) 3.22 10*3/uL 1.88-7.09 (test code = 9615722241) IMM GRAN x10^3 (test <0.03 0-0.06 code = 9067298331) LYMPH x10^3 (test code 3.45 10*3/uL 1.32-3.29 H = 731-0) MONO x10^3 (test code 0.49 10*3/uL 0.33-0.92 = 742-7) EOS x10^3 (test code = 0.16 10*3/uL 0.03-0.39 711-2) BASO x10^3 (test code 0.07 10*3/uL 0.01-0.07 = 704-7) Lab Interpretation Abnormal (test code = 03227-9) [facility] [id number] 10:57:00 Test Item Value Reference Range Interpretation Comments POCT PREG (test code = 1605) neg On board controls acceptable with yes C Line (test code = 3574) POCT PREG LOT # (test code = 3575) [id number] POCT PREG TEST DATE (test 12-15-2021 code = 3576) Lab Interpretation (test code = Normal 92944-9) [facility] ABDOMEN PELVIS W [id number] 01:30:25 1. ?No acute abnormality within the abdomen or pelvis. 2. ?No evidence of bowel obstruction or inflammation. The appendix isnormal. 3. ?Prior cholecystectomy. RL: [id number] End of Report ORDERING PROVIDER: NINA MURILLO HISTORY: Abdominal pain TECHNIQUE: Axial CT images of the abdomen and pelvis were obtained afterthe administration of IVcontrast. Coronal and sagittal reformations weregenerated and evaluated. CT scan is performed using the ALARA principle. COMPARISON: Radiographic abdominal series 12/23/2018 FINDINGS: The visualized lungbases are clear. The liver, spleen, pancreas, adrenal glands, and kidneys have a normalcontrast-enhanced appearance. The gallbladder surgically absent. Milddilation of the CBD is a commonly seen postcholecystectomy finding. The visualized distal esophagus, stomach, and small bowel are within normallimi ts. The appendix is normal. The colon is normal in caliber without wallthickening or inflammatory change. No free intraperitoneal air or fluid. No focal mesenteric fat stranding. Nopathologically enlarged lymph nodes are detected. The aorta and IVC arenormal in course and caliber. Urinary bladder is decompressed, limiting evaluation. No evidence ofintravesicular stones. The uterus and adnexa are age-appropriate in size. No free fluid orinflammatory changes are identified in the pelvis. The superficial soft tissues and osseous structures are unremarkable. [facility], Radiant Results Inft User - 17:31 PM CSTORDERING PROVIDER: OCTAVIO MURILLOHISTORY: Abdominal painTECHNIQUE: Axial CT images of theabdomen and pelvis were obtained afterthe administration of IV contrast. Coronal and sagittal reformations weregenerated and evaluated.CT scan is performed using the ALARA principle.COMPARISON: Radiographic abdominal series 12/23/2018FINDINGS: The visualized lung bases are clear.The liver, spleen, pancre as, adrenal glands, and kidneys have a normalcontrast-enhanced appearance. The gallbladder surgically absent. Milddilation of the CBD is a commonly seen postcholecystectomy finding.The visualized distal esophagus, stomach, and small bowel are within normallimits. The appendix is normal. The colon is normal in caliber without wallthickening or inflammatory change.No free intraperitoneal air or fluid. No focal mesenteric fat stranding. Nopathologically enlarged lymph nodes are detected. The aorta and IVC arenormal in course and caliber.Urinary bladder is decompressed, limiting evaluation. No evidenceofintravesicular stones.The uterus and adnexa are age-appropriate in size. No free fluid orinflammatory changes are identified in the pelvis.The superficial soft tissues and osseous structures are unremarkable.IMPRESSION1. No acute abnormality within the abdomen or pelvis.2. No evidence of bowel obstruction or inflammation. The appendix isnormal.3. Prior cholecystectomy.RL: [id number] of [facility] FallsCOVID-19 (ID NOW RAPID TESTING)2020-04-30 01:17:00 Test Item Value Reference Range Interpretation Comments SARS-CoV-2 Rapid ID NOW Not Detected Not Detected (test code = 04221-2) MELLISSA (test code = MELLISSA) ID NOW COVID-19 Assay is an isothermal nucleic acid amplification test intended for the qualitative detection of nucleic acid from SARS-CoV-2 viral RNA in nasopharyngeal ([employer]) specimens. It is used under Emergency Use Authorization (EUA) by FDA. The limit of detection (LOD) of the assay is 125 Genome Equivalents/mL. A positive result is indicative of the presence of SARS-CoV-2 RNA. ?Clinical correlation with patient history and other diagnostic information is necessary to determine patient infection status. A negative (Not Detected) result does not preclude SARS-CoV-2 infection. In patients with clinical symptoms and other tests that are consistent with SARS-CoV-2 infection, negative results should be treated as presumptive negative and a new specimen should be tested with alternative PCR molecular test. Invalid: Please collect a new specimen for repeat patient testing if clinically indicated. Lab Interpretation Normal (test code = 41244-8) [facility] Metabolic [id number] 00:02:00 Test Item Value Reference Range Interpretation Comments NA (test code = 140 mmol/L 135-145 9380547171) K (test code = 3.5 mmol/L 3.5-5 8581170112) CL (test code = 105 mmol/L 98-108 0970712650) CO2 TOTAL (test code = 24 mmol/L 23-31 2425821090) AGAP (test code = 2-16 8904818804) BUN (test code = 8 mg/dL 7-23 8611766380) GLUCOSE (test code = 87 mg/dL 70-110 4880323660) CREATININE (test code 0.64 mg/dL 0.5-1.04 = 4007270655) TOTAL BILI (test code 1.0 mg/dL 0.1-1.1 = 0265852850) CALCIUM (test code = 9.0 mg/dL 8.6-10.6 2591654982) T PROTEIN (test code = 7.9 g/dL 6.3-8.2 6727966227) ALBUMIN (test code = 4.7 g/dL 3.5-5 9851404215) ALK PHOS (test code = 62 U/L 34-122 6735297479) ALTv (test code = 19 U/L 5-35 1742-6) AST(SGOT) (test code = 39 U/L 13-40 0676796678) eGFR Calculation mL/min/1.73m2 (Non-) (test code = 9286886060) eGFR Calculation mL/min/1.73m2 () (test code = 4379548507) MELLISSA (test code = MELLISSA) Association of Glomerular Filtration Rate (GFR) and Staging of Kidney Disease* + -+ + ---+| GFR (mL/min/1.73 m2) ?| With Kidney Damage ?| ?Without Kidney Damage+ -------+ ------+ ---------+| ?>90 ?| ?Stage one ?| ? Normal ?+ --+ -+ ----+| ?60-89 ?| ?Stage two ?| ? Decreased GFR ? + -+ + ---+| ?30-59 ?| ?Stage three ?| ? Stage three ? + -+ + ---+| ?15-29 ?| ?Stage four ? | ? Stage four ?+ --+ -+ ----+| ?<15 (or dialysis) ? ?| ?Stage five ? | ? Stage five ?+ --+ -+ ----+ *Each stage assumes the associated GFR level has been in effect for at least three months. ?Stages 1 to 5, with or without kidney disease, indicate chronic kidney disease. Notes: Determination of stages one and two (with eGFR >59mL/min/1.73 m2) requires estimation of kidney damage for at least three months as defined by structural or functional abnormalities of the kidney, manifested by either:Pathological abnormalities or Markers of kidney damage (including abnormalities in the composition of the blood or urine or abnormalities in imaging tests). [facility]isco[facility], [id number] 00:02:00 Test Item Value Reference Range Interpretation Comments LIPASE (test code = 3665793104) 30 U/L 0-220 Lab Interpretation (test code = Normal 49803-1) [facility]iscoUrinalysis2021-01-13 23:59:00 Test Item Value Reference Range Interpretation Comments APPEARANCE (test code = Hazy Clear A 0282141451) COLOR (test code = Bee Yellow A 5489522255) PH (test code = 4.8-8.0 1494587280) SP GRAVITY (test code = 1.003-1.030 0654551942) GLU U QUAL (test code = Normal Normal 6185715740) BLOOD (test code = Negative Negative 0111124007) KETONES (test code = 20 mg/dL Negative A 2209469713) PROTEIN (test code = 30 mg/dL Negative A 2887-8) UROBILIN (test code = Normal Normal 9860031838) BILIRUBIN (test code = Negative Negative 9925025384) NITRITE (test code = Negative Negative 7633661632) LEUK QUYEN (test code = Negative Negative 9223772080) RBC/HPF (test code = <1 See_Comment [Autom ated message] 7757644254) The system [employer] generated this result transmitted ref erence range: 0 - 3 HP F. The reference range was not used to int erpret this result as normal/abnormal . WBC/HPF (test code = See_Comment [Autom ated message] 4165186267) The system [employer] generated this result transmitted ref erence range: 0 - 5 HP F. The reference range was not used to int erpret this result as normal/abnormal . BACTERIA (test code = Few Negative A 3509452000) MUCOUS (test code = Marked Negative LPF A 9956673185) SQ EPITH (test code = HPF 9786051516) Lab Interpretation (test Abnormal code = 88113-5) [facility] with [id number] 23:50:00 Test Item Value Reference Range Interpretation Comments WBC (test code = See_Comment [Automated 4590-2) message] The sy stem which generated this result transmitted reference range : 4.30 - 11.10 10*3/?L. The reference range was not used to interpret this result as normal/abnormal . RBC (test code = See_Comment [Automated 079-8) message] The sy stem which generated this result transmitted reference range : 3.93 - 5.25 10*6/?L. The reference range was not used to interpret this result as normal/abnormal . HGB (test code = 14.5 g/dL 11.6-15 718-7) HCT (test code = 42.9 % 35.7-45.2 4544-3) MCV (test code = 87.7 fL 80.6-95.5 787-2) MCH (test code = 29.7 pg 25.9-32.8 785-6) MCHC (test code = 33.8 g/dL 31.6-35.1 786-4) RDW-SD (test code = 39.0 fL 39-49.9 57828-6) RDW-CV (test code = 12.1 % 12-15.5 788-0) PLT (test code = See_Comment [Automated 777-3) message] The sy stem which generated this result transmitted reference range : 166 - 358 10*3/ ?L. The reference r aparna was not used to interpret this result as normal/abnormal . MPV (test code = 10.1 fL 9.5-12.9 99014-1) NRBC/100 WBC (test See_Comment [Automat ed code = 8759542149) message] The system which generated this result transmitted reference range : 0.0 - 10.0 /100 WBCs. The refer ence range was not u sed to interpret th is result as normal/abnormal . NRBC x10^3 (test code <0.01 See_Comment [Auto mated = 3375466994) message] The s ystem which generated this result transmitted reference range : 10*3/?L. The reference range was not used to interpret this result as normal/abnormal . GRAN MAT (NEUT) % 44.6 % (test code = 770-8) IMM GRAN % (test code 0.30 % = 4740870980) LYMPH % (test code = 44.7 % 736-9) MONO % (test code = 7.2 % 5905-5) EOS % (test code = 2.3 % 713-8) BASO % (test code = 0.9 % 706-2) GRAN MAT x10^3(ANC) 3.89 10*3/uL 1.88-7.09 (test code = 4268626647) IMM GRAN x10^3 (test 0.03 10*3/uL 0-0.06 code = 9759082595) LYMPH x10^3 (test code 3.90 10*3/uL 1.32-3.29 H = 731-0) MONO x10^3 (test code 0.63 10*3/uL 0.33-0.92 = 742-7) EOS x10^3 (test code = 0.20 10*3/uL 0.03-0.39 711-2) BASO x10^3 (test code 0.08 10*3/uL 0.01-0.07 H = 704-7) Lab Interpretation Abnormal (test code = 34448-0) [facility]iscoPOCT [id number] 23:22:00 Test Item Value Reference Range Interpretation Comments POCT PREG (test code = 1605) Negative On board controls acceptable with Present C Line (test code = 3574) POCT PREG LOT # (test code = 3575) [id number] POCT PREG TEST DATE (test 12/15/2021 code = 3576) Lab Interpretation (test code = Normal 18044-6) [facility]INALYS[facility]2019-09-08 07:28:00 Test Item Value Reference Range Interpretation Comments APPEARANCE (test code = Clear Clear 0441550614) COLOR (test code = Yellow Yellow 1016598351) PH (test code = 4.8-8.0 5990495247) SP GRAVITY (test code = >=1.030 1.003-1.030 9969111531) GLU U QUAL (test code = Negative Negative 1977582448) BLOOD (test code = Negative Negative 6709669534) KETONES (test code = 15 mg/dL Negative A 2323018240) PROTEIN (test code = Trace Negative A 2887-8) UROBILIN (test code = 0.2 mg/dL See_Comment [Auto mated message] 2909845900) The system [employer] generated this result transmit galen reference range : 0-1.0 mg/dL. Th e reference range was not used to interpret this result as normal/abnormal . BILIRUBIN (test code = Small Negative A 8167774233) NITRITE (test code = Negative Negative 8730024720) LEUK QUYEN (test code = Negative Negative 6867028297) RBC/HPF (test code = See_Comment [Autom ated message] 6979012871) The system [employer] generated this result transmit galen reference range : 0 - 3 HPF. The refe rence range was not u sed to interpret th is result as normal/abnormal . WBC/HPF (test code = See_Comment [Autom ated message] 0296106765) The system [employer] generated this result transmit galen reference range : 0 - 5 HPF. The refe rence range was not u sed to interpret th is result as normal/abnormal . BACTERIA (test code = Few Negative A 9480716188) SQ EPITH (test code = HPF 7441002266) Lab Interpretation (test Abnormal code = 13692-9) [facility]iscoCOMP. METABOLIC PANEL (30850)2018-12-23 07:26:00 Test Item Value Reference Range Interpretation Comments NA (test code = 143 mmol/L 135-145 2064113207) K (test code = 4.0 mmol/L 3.5-5 6364708376) CL (test code = 108 mmol/L 98-108 5406693618) CO2 TOTAL (test code = 23 mmol/L 23-31 4067206284) AGAP (test code = 2-16 3683748532) BUN (test code = 7 mg/dL 7-23 6290812770) GLUCOSE (test code = 97 mg/dL 70-110 4303517721) CREATININE (test code 0.75 mg/dL 0.5-1.04 = 1268803087) TOTAL BILI (test code 0.6 mg/dL 0.1-1.1 = 7843181654) CALCIUM (test code = 9.4 mg/dL 8.6-10.6 0660337543) T PROTEIN (test code = 8.0 g/dL 6.3-8.2 6626156523) ALBUMIN (test code = 4.8 g/dL 3.5-5 7094046608) ALK PHOS (test code = 60 U/L 34-122 1037672559) ALT(SGPT) (test code = 27 U/L 9-51 6706110715) AST(SGOT) (test code = 28 U/L 13-40 6462198686) eGFR Calculation mL/min/1.73m2 (Non-) (test code = 8778917304) eGFR Calculation mL/min/1.73m2 () (test code = 6073972376) MELLISSA (test code = MELLISSA) Association of Glomerular Filtration Rate (GFR) and Staging of Kidney Disease*+ ---------+ --------+ +| GFR (mL/min/1.73 m2)?| With Kidney Damage?|?Without Kidney Damage+ -------+ ------+ ---------+|?>90?|?Stage one?|? Normal?+ --------+ -------+ +|?60-89?|?St age two?|? Decreased GFR? + -+ + ---+|?30-59?|?Stage three?|? Stage three? + -+ + ---+|?15-29?|?Stage four? |? Stage four?+ ------+ -----+ --------+|?<15 (or dialysis)?|?Stage five? |? Stage five?+ ------+ -----+ --------+*Each stage assumes the associated GFR level has been in effect for at least three months.?Stages 1 to 5, with or without kidney disease, indicate chronic kidney disease.Notes: Determination of stages one and two (with eGFR >59mL/min/1.73 m2) requires estimation of kidney damage for at least three months as defined by structural or functional abnormalities of the kidney, manifested by either:Pathological abnormalities or Markers of kidney damage (including abnormalities in the composition of the blood or urine or abnormalities in imaging tests). [facility]2019-09-08 07:22:00 Test Item Value Reference Range Interpretation Comments LIPASE (test code = 7303093689) 42 U/L 0-220 Lab Interpretation (test code = Normal 25170-3) [facility] FriscoXR ABDOMEN ACUTE [id number] 07:13:18 Impression: 1. No free air or evidence of bowel obstruction.2. Prior right upper quadrant abdominal surgery. RL: 2824AFC: [id number]: Acute Abdominal Series, 12/22/2018 11:00 PM. Ordering Physician: PRIMO MURRAY III. History: Abdominal pain. Technique: PA view of the chest.?AP supine and upright views of theabdomen. Comparison: None. Findings: Cardiac and mediastinal silhouettes are normal. There is no pneumothorax.Pleural and diaphragmatic contours are normal.?No free air is noted.Surgical clips project over the right upper quadrant. Psoas and renaloutlines are unremarkable. There is no organomegaly or abdominal masseffect. Bowel gas pattern is nonobstructive. There is moderate gaseousdistention of the colon. There is slight lumbar levoconvex curvature,possibly positional or due to scoliosis. [facility], Radiant Results Inft User - 12/23/2018 2:15 AM CDTExam: Acute Abdominal Series, 12/22/2018 11:00 PM.O rdering Physician: KINGSLEY MURRAY III.History: Abdominal pain.Technique: PA view of the chest. AP supine and upright views of theabdomen.Comparison: None.Findings: Cardiac and mediastinal silhouettes are normal. There is no pneumothorax.Pleural and diaphragmatic contours are normal. No free air is note d.Surgical clips project over the right upper quadrant. Psoas and renaloutlines are unremarkable. There is no organomegaly or abdominal masseffect. Bowel gas pattern is nonobstructive. There is moderate gaseousdistention of the colon. There is slight lumbar levoconvex curvature,possibly positional or due to scoliosis.IMPRESSIONImpression: 1. No free air or evidence of bowel obstruction.2. Prior rightupper quadrant abdominal surgery.RL: 2824AFC: [id number] [facility] WITH [id number] 07:10:00 Test Item Value Reference Range Interpretation Comments WBC (test code = See_Comment [Automated message] 6690-2) The system [employer] generated this result transmitted ref erence range: 4.30 - 1 1.10 10*3/?L. The re ference range was not u sed to interpret this result as normal/abnor mal. RBC (test code = See_Comment [Automated message] 439-8) The system [employer] generated this result transmitted ref erence range: 3.93 - 5 .25 10*6/?L. The re ference range was not u sed to interpret this result as normal/abnor mal. HGB (test code = 14.5 g/dL 11.6-15 718-7) HCT (test code = 43.2 % 35.7-45.2 4544-3) MCV (test code = 89.1 fL 80.6-95.5 787-2) MCH (test code = 29.9 pg 25.9-32.8 785-6) MCHC (test code = 33.6 g/dL 31.6-35.1 786-4) RDW-SD (test code 39.3 fL 39-49.9 = 88254-8) RDW-CV (test code 12.0 % 12-15.5 = 788-0) PLT (test code = See_Comment [Automated message] 987-3) The system [employer] generated this result transmitted ref erence range: 166 - 35 8 10*3/?L. The re ference range was not u sed to interpret this result as normal/abnor mal. MPV (test code = 9.6 fL 9.5-12.9 13205-8) NRBC/100 WBC (test See_Comment [Automat ed message] code = 9925537252) The [employer] which generated this result transmitted ref erence range: 0.0 - 10 .0 /100 WBCs. The refer ence range was not u sed to interpret this result as normal/abnor mal. NRBC x10^3 (test <0.01 See_Comment [Automated message] code = 6664833467) The syste m which generated this result transmitted ref erence range: 10*3/?L. The reference range was not used to interpr et this result as normal/abnormal . GRAN MAT (NEUT) % 53.7 % (test code = 770-8) IMM GRAN % (test 0.50 % code = 6867893059) LYMPH % (test code 34.6 % = 736-9) MONO % (test code 8.4 % = 5905-5) EOS % (test code = 2.1 % 713-8) BASO % (test code 0.7 % = 706-2) GRAN MAT 4.54 10*3/uL 1.88-7.09 x10^3(ANC) (test code = 3043239045) IMM GRAN x10^3 0.04 10*3/uL 0-0.06 (test code = 0559519617) LYMPH x10^3 (test 2.93 10*3/uL 1.32-3.29 code = 731-0) MONO x10^3 (test 0.71 10*3/uL 0.33-0.92 code = 742-7) EOS x10^3 (test 0.18 10*3/uL 0.03-0.39 code = 711-2) BASO x10^3 (test 0.06 10*3/uL 0.01-0.07 code = 704-7) [facility]PO[facility] [id number] 06:55:00 Test Item Value Reference Range Interpretation Comments POCT PREG (test code = 1605) Negative On board controls acceptable with Present C Line (test code = 3574) POCT PREG LOT # (test code = HCG [id number]) POCT PREG TEST DATE (test 04/16/2020 code = 3576) Lab Interpretation (test code = Normal 67886-4) [facility] W/PLT COUNT & AUTO DIFFERENTIAL 2016-08-31 06:31:00 Test Item Value Reference Range Interpretation Comments WHITE BLOOD CELL COUNT (BEAKER) 8.4 K/ L 4.0-10.0 (test code = 775) RED BLOOD CELL COUNT (BEAKER) 4.76 M/ L 4.00-5.00 (test code = 761) HEMOGLOBIN (BEAKER) (test code = 14.0 GM/DL 12.0-15.0 410) HEMATOCRIT (BEAKER) (test code = 43.3 % 36.0-45.0 411) MEAN CORPUSCULAR VOLUME (BEAKER) 91.0 fL 82.0-99.0 (test code = 753) MEAN CORPUSCULAR HEMOGLOBIN 29.5 pg 27.0-33.0 (BEAKER) (test code = 751) MEAN CORPUSCULAR HEMOGLOBIN CONC 32.4 GM/DL 32.0-36.0 (BEAKER) (test code = 752) RED CELL DISTRIBUTION WIDTH 11.5 % 10.3-14.2 (BEAKER) (test code = 412) PLATELET COUNT (BEAKER) (test 215 K/CU MM 150-430 code = 756) MEAN PLATELET VOLUME (BEAKER) 7.7 fL 6.5-10.5 (test code = 754) NUCLEATED RED BLOOD CELLS 0 /100 WBC 0-0 (BEAKER) (test code = 413) NEUTROPHILS RELATIVE PERCENT 48 % (BEAKER) (test code = 429) LYMPHOCYTES RELATIVE PERCENT 35 % (BEAKER) (test code = 430) MONOCYTES RELATIVE PERCENT 9 % (BEAKER) (test code = 431) EOSINOPHILS RELATIVE PERCENT 7 % (BEAKER) (test code = 432) BASOPHILS RELATIVE PERCENT 1 % (BEAKER) (test code = 437) NEUTROPHILS ABSOLUTE COUNT 4.02 K/ L 1.80-8.00 (BEAKER) (test code = 670) LYMPHOCYTES ABSOLUTE COUNT 2.96 K/ L 1.48-4.50 (BEAKER) (test code = 414) MONOCYTES ABSOLUTE COUNT (BEAKER) 0.78 K/ L 0.00-1.30 (test code = 415) EOSINOPHILS ABSOLUTE COUNT 0.58 K/ L 0.00-0.50 H (BEAKER) (test code = 416) BASOPHILS ABSOLUTE COUNT (BEAKER) 0.04 K/ L 0.00-0.20 (test code = 417) 0.00HEPATIC FUNCTION [id number] 06:03:00 Test Item Value Reference Range Interpretation [...] 151 U/L 6-55 H 347) BASIC METABOLIC [id number] 06:03:00 Test Item Value Reference Range Interpretation [...] PATIEN TS. CBC W/PLT COUNT & AUTO [id number] 08:15:00 Test Item Value Reference Range Interpretation [...] 0.00-0.20 (test code = 417) 0.00HEPATIC FUNCTION [id number] 06:43:00 Test Item Value Reference Range Interpretation [...] 189 U/L 6-55 H 347) BASIC METABOLIC [id number] 06:43:00 Test Item Value Reference Range Interpretation [...] NOT APPLICABLE FOR DIALYSIS PATIEN TS. SCREEN, [id number] 10:31:00 Test Item Value Reference Range Interpretation Comments TEST URINE (BEAKER) (test Negative code = 583) CBC W/PLT COUNT & AUTO [id number] 06:59:00 Test Item Value Reference Range Interpretation [...] 0.00-0.20 (test code = 417) 0.00HEPATIC FUNCTION [id number] 06:29:00 Test Item Value Reference Range Interpretation [...] 210 U/L 6-55 H 347) BASIC METABOLIC [id number] 06:29:00 Test Item Value Reference Range Interpretation [...] APPLICABLE FOR DIALYSIS PATIEN TS. HEPATIC FUNCTION [id number] 05:02:00 Test Item Value Reference Range Interpretation [...] 250 U/L 6-55 H 347) BASIC METABOLIC [id number] 05:02:00 Test Item Value Reference Range Interpretation [...] PATIEN TS. CBC W/PLT COUNT & AUTO [id number] 04:37:00 Test Item Value Reference Range Interpretation [...] K/ L 0.00-0.20 (test code = 417) [id number] 07:40:00 Test Item Value Reference Range Interpretation Comments LIPASE (BEAKER) (test code = 749) 8 U/L 8-78 [id number] 07:40:00 Test Item Value Reference Range Interpretation Comments AMYLASE (BEAKER) (test code = 349) 44 U/L 25-125 BASIC METABOLIC [id number] 07:40:00 Test Item Value Reference Range Interpretation [...] APPLICABLE FOR DIALYSIS PATIEN TS. HEPATIC FUNCTION [id number] 07:40:00 Test Item Value Reference Range Interpretation [...] H 347) CBC W/PLT COUNT & AUTO [id number] 06:56:00 Test Item Value Reference Range Interpretation [...] K/ L 0.00-0.20 (test code = 417) 0.00PT/[id number] 06:46:00 Test Item Value Reference Range Interpretation Comments PROTIME (BEAKER) (test code = 15.3 seconds 11.7-14.7 H 759) INR (BEAKER) (test code = 370) 1.2 <=5.9 PARTIAL THROMBOPLASTIN TIME 32.9 seconds 22.5-36.0 (BEAKER) (test code = 760) RECOMMENDED COUMADIN/WARFARIN INR THERAPY RANGESSTANDARD DOSE: 2.0 - 3.0 Includes: PROPHYLAXIS for venous thrombosis, systemic embolization; TREATMENT for venous thrombosis and/or pulmonary embolus.HIGH RISK: Target INR is 2.5-3.5 for patients with mechanical heart valves."
[2022-05-31 08:35] LABS: Absolute Lymphocytes (CBC) 1.6 K/uL (0.7-4.9); Hematocrit 45.5 % (36.0-45.0); Lymphocytes % 18.6 % (15.3-44.8); MCV 88.2 fL (80-100); MPV 7.8 fL (7.6-11.3); RBC Red Blood Cell Count 5.17 M/uL (3.86-4.86)
[2022-05-31] MEDS ORDERED: ONDANSETRON 4 MG/2 ML VIAL ONE (08:38)
[2022-05-31] MEDS ORDERED: NA CHLORIDE 0.9% 1,000 ML ONE (08:38)
[2022-05-31 08:49] LABS: Albumin 4.6 g/dL (3.4-5.0); Bilirubin Total 0.8 mg/dL (0.2-1.0); Potassium 4.1 mmol/L (3.5-5.1); Protein, Total 8.5 g/dL (6.4-8.2)
[2022-05-31 08:49] LABS: Urine Blood Trace-intact (Negative); Urine Glucose Negative (Negative); Urine Protein 1+ (Negative); Urine Specific Gravity 1.025 (1.005-1.030)
[2022-05-31 09:13] LABS: SARS-COV-2 RT PCR NEGATIVE (NEGATIVE)
[2022-05-31 09:25] LABS: Urine Specific Gravity/Preg 1.025 (1.005-1.030)
--- NOTE | 2022-05-31 09:53 | ER ---
Nurse's Notes [facility] Name: Marcy Flores Age: 26 yrs Sex: Female : 1995 Arrival Date: 05/31/2022 Time: 07:52 Bed IW1 Private MD: Diagnosis: Vomiting, unspecified;Diarrhea, unspecified;Dehydration Presentation: 05/31 08:31 Chief complaint: Patient states: N/V/D x 5 days. Coronavirus screen: Vaccine status: [facility] Patient reports being unvaccinated. diarrhea, nausea, vomiting. Client presents with at least one sign or symptom that may indicate coronavirus-19. Ebola Screen: No symptoms or risks identified at this time. Initial Sepsis Screen: Does the patient meet any 2 criteria? No. Patient's initial sepsis screen is negative. Does the patient have a suspected source of infection? No. Patient's initial sepsis screen is negative. Risk Assessment: Do you want to hurt yourself or someone else? Patient reports no desire to harm self or others. Onset of symptoms was May 26, 2022. 08:31 Method Of Arrival: Ambulatory [facility] 08:31 Acuity: BIRDIE 3 [facility] Triage Assessment: 08:32 General: Appears in no apparent distress. uncomfortable, Behavior is calm, cooperative, jl7 appropriate for age. Pain: Complains of pain in right lower quadrant and left lower quadrant Pain currently is 4 out of 10 on a pain scale. Quality of pain is described as crampy. GI: Reports diarrhea, nausea, vomiting. 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 - Social history:: Smoking status: Patient denies any tobacco usage or history of. - Family history:: not pertinent. - Hospitalizations: : No recent hospitalization is reported. Vital Signs: 08:31 BP 117 / 74; Pulse 100; Resp 17; Temp 97.9; Pulse Ox 98% ; Weight 72.57 kg; Height 5 jl7 ft. 2 in. (157.48 cm); Pain 4/10; 08:31 Body Mass Index 29.26 (72.57 kg, 157.48 cm) jl7 ED Course: :52 Patient arrived in ED. as 07:52 Compa Mart MD is Attending Physician. rn 08:23 COVID-19/FLU A+B Sent. jl7 08:25 Initial lab(s) drawn, by ED staff, sent to lab. Inserted saline lock: 20 gauge in right jl7 forearm, using aseptic technique. Blood collected. 08:32 Triage completed. jl7 08:32 Arm band placed on right wrist. Patient placed in waiting room, Patient notified of jl7 wait time. 08:39 Jazlyn Trinidad RN is Primary Nurse. jl7 08:57 CBC with Diff Sent. jl7 08:57 CMP Sent. jl7 08:57 Lipase Sent. jl7 10:08 No provider procedures requiring assistance completed. IV discontinued, intact, jl7 bleeding controlled, No redness/swelling at site. Pressure dressing applied. Administered Medications: 08:39 Drug: NS 0.9% 1000 ml Route: IV; Rate: 1 bolus; Site: right forearm; jl7 08:39 Drug: Zofran (Ondansetron) 4 mg Route: IVP; Site: right forearm; jl7 Outcome: 09:53 Discharge ordered by . rn 10:09 Discharged to home ambulatory. jl7 10:09 Condition: stable 10:09 Discharge instructions given to patient, Instructed on discharge instructions, follow up and referral plans. medication usage, Demonstrated understanding of instructions, follow-up care, medications, Prescriptions given X 1. 10:09 Patient left the ED. jl7 Signatures: Elenita Mcmillan as Compa Mart MD MD rn Leal, Jahala, RN RN jl7
--- NOTE | 2022-05-31 09:54 | EDPHYS ---
Physician Documentation [facility] Name: Marcy Flores Age: 26 yrs Sex: Female : 1995 Arrival Date: 05/31/2022 Time: 07:52 Bed IW1 Private MD: ED Physician [employer] HPI: 05/31 08:31 This 26 yrs old Female presents to ER via Unassigned with complaints of Vomiting. rn 08:31 The patient presents to the emergency department with nausea, vomiting, diarrhea. rn Onset: The symptoms/episode began/occurred 4 day(s) ago. Possible causes: unknown. The symptoms are aggravated by nothing. The symptoms are alleviated by nothing. Associated signs and symptoms: Pertinent positives: diarrhea, nausea, vomiting, Pertinent negatives: fever, GI bleeding. Severity of symptoms: At their worst the symptoms were moderate in the emergency department the symptoms are unchanged. The patient has not experienced similar symptoms in the past. The patient has not recently seen a physician. 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 - Social history:: Smoking status: Patient denies any tobacco usage or history of. - Family history:: not pertinent. - Hospitalizations: : No recent hospitalization is reported. ROS: 08:31 Constitutional: Negative for fever, chills, and weight loss, Eyes: Negative for injury, rn pain, redness, and discharge, Neck: Negative for injury, pain, and swelling, Cardiovascular: Negative for chest pain, palpitations, and edema, Respiratory: Negative for shortness of breath, cough, wheezing, and pleuritic chest pain, Abdomen/GI: + nausea/vomiting/diarrhea Back: Negative for injury and pain, : Negative for injury, bleeding, discharge, and swelling, MS/Extremity: Negative for injury and deformity, Skin: Negative for injury, rash, and discoloration, Neuro: Negative for headache, numbness, tingling, and seizure. Exam: 08:31 Constitutional: This is a well developed, well nourished patient who is awake, alert, rn and in no acute distress. Head/Face: Normocephalic, atraumatic. ENT: dry MM Cardiovascular: Tachycardic. Regular. Respiratory: No increased work of breathing, no retractions or nasal flaring. Abdomen/GI: Soft, non-tender Skin: Warm, dry MS/ Extremity: Pulses equal, no cyanosis. Neuro: Awake and alert, GCS 15 Vital Signs: 08:31 BP 117 / 74; Pulse 100; Resp 17; Temp 97.9; Pulse Ox 98% ; Weight 72.57 kg; Height 5 jl7 ft. 2 in. (157.48 cm); Pain 410; 08:31 Body Mass Index 29.26 (72.57 kg, 157.48 cm) jl7 MDM: 07:52 Patient medically screened. rn 09:51 Differential diagnosis: Nonspecific abd pain, gastritis, viral gastroenteritis, rn gastroenteritis, covid/flu. Data reviewed: vital signs, nurses notes, lab test result(s), and as a result, I will discharge patient. Counseling: I had a detailed discussion with the patient and/or guardian regarding: the historical points, exam findings, and any diagnostic results supporting the discharge/admit diagnosis, lab results, the need for outpatient follow up, to return to the emergency department if symptoms worsen or persist or if there are any questions or concerns that arise at home. Special discussion: I discussed with the patient/guardian in detail that at this point there is no indication for admission to the hospital. It is understood, however, that if the symptoms persist or worsen the patient needs to return immediately for re-evaluation. Based on the history and exam findings, there is no indication for further emergent testing or inpatient evaluation. I discussed with the patient/guardian the need to see the primary care provider for further evaluation of the symptoms. ED course: Pt feels much better, no longer nauseated, gave her option to continuet o wait for room with more nausea medication vs dc home with nausea medication, she chooses to go home. Normal WBC. COVID/flu neg. Stable vitals. States abd cramps went away. . 05/31 08:08 Order name: CBC with Diff rn 05/31 08:08 Order name: CMP rn 05/31 08:08 Order name: Lipase rn 05/31 08:08 Order name: COVID-19/FLU A+B rn 05/31 08:38 Order name: CBC with Automated Diff; Complete Time: 09:32 EDMS 05/31 08:49 Order name: Comprehensive Metabolic Panel; Complete Time: 09:32 EDMS 05/31 08:08 Order name: IV Saline Lock; Complete Time: 08:22 rn 05/31 08:49 Order name: Lipase; Complete Time: 09:32 EDMS 05/31 08:49 Order name: Urine Dipstick-Ancillary; Complete Time: 09:32 EDMS 05/31 09:03 Order name: Urine --Ancillary (enter results) bd 05/31 09:13 Order name: COVID-19/FLU A+B; Complete Time: 09:32 EDMS 05/31 09:25 Order name: Urine --Ancillary; Complete Time: 09:32 EDMS 05/31 08:08 Order name: Labs collected and sent; Complete Time: 08:22 rn 05/31 08:08 Order name: Urine Dipstick-Ancillary (obtain specimen); Complete Time: 08:57 rn 05/31 08:08 Order name: Urine Test (obtain specimen); Complete Time: 08:57 rn Administered Medications: 08:39 Drug: NS 0.9% 1000 ml Route: IV; Rate: 1 bolus; Site: right forearm; jl7 08:39 Drug: Zofran (Ondansetron) 4 mg Route: IVP; Site: right forearm; jl7 Disposition Summary: 05/31/22 09:53 Discharge Ordered Location: Home rn Problem: new rn Symptoms: have improved rn Condition: Stable rn Diagnosis - Vomiting, unspecified rn - Diarrhea, unspecified rn - Dehydration rn Followup: rn - With: Private Physician - When: As needed - Reason: Recheck today's complaints, Re-evaluation by your physician Discharge Instructions: - Discharge Summary Sheet rn - Dehydration, Adult rn - Diarrhea, Adult rn - Nausea and Vomiting, Adult rn Forms: - Work release form rn - Medication Reconciliation Form rn - Thank You Letter rn - 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
[2022-05-31 10:27] VITALS: BP 117/74; TEMP 97.9; O2SAT 98
== END 2022-05-31 10:09 | disposition home or self-care (01) ==
LOC: ER 07:48
DX: E86.0 Dehydration (principal); R19.7 Diarrhea, unspecified; Z20.822 Contact with and (suspected) exposure to COVID-19; Z88.8 Allergy status to other drugs, medicaments and biological substances; Z91.018 Allergy to other foods
CPT/HCPCS: 0240U; 36415; 80053; 81003; 81025; 83690; 85025; J2405; J7030

== ENCOUNTER 2023-01-24 06:49 | Emergency (ER) | payer SELFPAY ==
--- OUTSIDE RECORDS SUMMARY | 2023-01-24 06:54 | XMS REPORT | Continuity of Care Document ---
:1995 Author Organization [facility] t Address [address] [place] [address] Care Team Providers Name Role Phone Titi Ruiz MD Attending Clinician Octavio Murillo DO Attending Clinician David Durán MD Attending Clinician PRASAD RODAS Attending Clinician Unavailable Nurse, [facility] Attending Clinician Unavailable Prasad Renteria Attending Clinician Doctor Unassigned, Lexa Attending Clinician Unavailable Kingsley Beavers Attending Clinician [...] rs active active ity of problems problems [facility] Allergies, Adverse Reactions, Alerts Allergy Allergy [...] Active Swelling Hands [facility] l[facility] Carbonat 00 Center Apple Drug Active Rash Apple [facility] C[facility] Vinegar [facility] Medical 00 Center Cinnamon Drug Active Swelling Throat [facility] Anal[facility] 08[facility]27 [facility] 00:[facility] Medical 00 Center Social History Social Habit Start Date Stop Date Quantity Comments Source Exposure to Not sure [facility] SARS-CoV-2 (event) Medica l [place] Tobacco use and 2020-04-29 2020-04-29 Never used [facility] exposure 00:00:00 00:00:00 [facility] Sex Assigned At [address] [facility] 00:00:00 00:00:00 [facility] Center Smoking Status Start Date Stop Date Source Never smoker [facility] Unknown if ever smoked [facility] Medications Ordered Filled Start Stop Current [...] 00 :00 ONCE, 1 Medical dose, Sat [place] 05/02/20 at 0900, RICHI
Fa culty member [...] 1,000 mL 00 :00 IV Medical Infusion, [place] ONCE, 1 dose, 05/02/20 at 0600, RICHI proMETHazin 2020- No 25mg 25 mg, Uni vers e 05-02 Oral, ity of (PHENERGAN) 11:45: 10:52 [place] 1 [place] tablet 25 00 :00 dose, Sat Medic al mg 05/02/20 at [place] 0545, RICHI proMETHazin Yes [id number] 25mg Insert 1 Univers e 05-02 Suppositor ity of (PHENERGAN) 00:00: y into [place] 25 mg 00 rectum Medical suppository every 4 Branc h (four) hours as needed for Nausea and Vomiting (N/V). morpHINE 2020- No 4mg 4 mg, Slow Un [place] injection 4 04-30 IV Push, ity of mg 01:45: 00:36 ONCE, 1 [place] 00 :00 dose, [facility] 04/29/20 at [place] 1945, STAT ondansetron 2020- No 4mg 4 mg, Slow Univers (ZOFRAN 04-30 IV Push, ity of (PF)) 01:45: 00:36 ONCE, 1 [place] injection 4 00 :00 dose, [facility] Med ical mg 04/29/20 at [place] 1945, RICHI iohexol 2020- No 120mL 120 mL, Unive rs (OMNIPAQUE 04-30 Intravenou it y of 350 00:45: 00:15 s, ONCE, 1 [place] BULK-150 00 :00 dose, [facility] Medica l mL) 04/29/20 at [place] injection 1845, 120 mL Routine sodium Yes 5mL 5 mL, Univers chloride 04-29 Intravenou ity o f (NS) 23:08: s, PRN, [place] injection 5 07 Starting Medi arie mL [facility] 04/29/20 at 1708, Until Discontinu ed, Routine, IV line flushing dicyclomine Yes [id number] 10mg Take 1 Univers (BENTYL) 10 - capsule by it y of mg capsule 00:00: mouth 4 [place] 00 (four) Medical times [place] daily. ondansetron Yes [id number] 4mg Take 1 Univers 4 mg 1-13 tablet by ity of disintegrat 00:00: mouth [place] ing tablet 00 every 4 Medica l (four) Branch hours as needed for Nausea and Vomiting (N/V). dicyclomine Yes [id number] 10mg Take 1 Univers (BENTYL) 10 1-13 capsule by it y of mg capsule 00:00: mouth [place] 00 (four) Medical times Branch daily. ondansetron Yes [id number] 4mg Take 1 Univers 4 mg 1-13 [...] 12/22/18 at 2300, STAT ondansetron 2018- Yes [id number] 4mg Take 1 Univers (ZOFRAN) 4 9-08 tablet by ity of mg tablet 00:00: mouth [place] 00 every 8 Medical (eight) Branch hours as needed for Nausea and Vomiting (N/V). ondansetron 2018-0 Yes [id number] 4mg Take 1 Univers (ZOFRAN) 4 9-08 tablet by ity of mg tablet 00:00: mouth [place] 00 every 8 Medical (eight) Branch hours as needed for Nausea and Vomiting (N/V). ondansetron 2018-0 Yes [id number] 4mg Take 1 Univers (ZOFRAN) 4 9-08 tablet by ity of mg tablet 00:00: mouth [place] 00 every 8 Medical (eight) Branch hours as needed for Nausea and Vomiting (N/V). ondansetron 2018- Yes [id number] 4mg Take 1 Univers (ZOFRAN) 4 9-08 tablet by ity of mg tablet 00:00: mouth [place] 00 every 8 Medical (eight) Branch hours as needed for Nausea and Vomiting (N/V). ondansetron 2018- Yes [id number] 4mg Take 1 Univers (ZOFRAN) 4 9-08 tablet by ity of mg tablet 00:00: mouth [place] 00 every 8 Medical (eight) Branch hours as needed for Nausea and Vomiting (N/V). ondansetron 2018- Yes [id number] 4mg Take 1 Univers (ZOFRAN) 4 9-08 tablet by ity of mg tablet 00:00: mouth [place] 00 every 8 Medical (eight) Branch hours as needed for Nausea and Vomiting (N/V). ondansetron 2018- Yes [id number] 4mg Take 1 Univers (ZOFRAN) 4 9-08 tablet by ity of mg tablet 00:00: mouth [place] 00 every 8 Medical (eight) Branch hours as needed for Nausea and Vomiting (N/V). Vital Signs Vital Name Observation Time Observation Value Comments Source Systolic blood 2020-05-02 15:00:00 117 mm[Hg] [facility] Diastolic blood 2020-05-02 15:00:00 72 mm[Hg] [facility] Heart rate 2020-05-02 15:00:00 66 /min [facility] Respiratory rate 2020-05-02 15:00:00 16 /min [facility] Oxygen saturation in 2020-05-02 15:00:00 99 /min [facility] Arterial blood by [facility] Pulse oximetry [place] Body temperature 2020-05-02 10:33:00 37.06 Carrie [facility] Body height 2020-05-02 10:33:00 157.5 cm [facility] Body weight 2020-05-02 10:33:00 72.576 kg [facility] BMI 2020-05-02 10:33:00 29.26 kg/m2 [facility] [place] [facility] Systolic blood 2020-04-30 02:01:00 134 mm[Hg] Univer sity of pressure [place] [facility] Diastolic blood 2020-04-30 02:01:00 72 mm[Hg] Unive rsity of pressure [place] [facility] Heart rate 2020-04-30 02:01:00 80 /min [facility] [place] [facility] Respiratory rate 2020-04-30 02:01:00 15 /min Univ ers[facility] [place] [facility] Oxygen saturation in 2020-04-30 02:01:00 99 /min University of Arterial blood by [place] [facility] Pulse oximetry Branch Body temperature 2020-04-29 22:36:00 37.83 Carrie [facility] [place] [facility] Body weight 2020-04-29 22:36:00 72.576 kg [facility] [place] [facility] BMI 2020-04-29 22:36:00 29.26 kg/m2 [facility] [place] [facility] Systolic blood 2020-04-29 22:31:00 146 mm[Hg] Univer sity of pressure [place] [facility] Diastolic blood 2020-04-29 22:31:00 67 mm[Hg] Unive rsity of pressure [place] [facility] Heart rate 2020-04-29 22:31:00 88 /min [facility] [place] [facility] Body temperature 2020-04-29 22:31:00 37.5 Carrie [facility] [place] [facility] Respiratory rate 2020-04-29 22:31:00 17 /min [facility] [place] [facility] Body height 2020-04-29 22:31:00 157.5 cm [facility] [place] [facility] Body weight 2020-04-29 22:31:00 72.576 kg [facility] [place] [facility] BMI 2020-04-29 22:31:00 29.26 kg/m2 [facility] [place] [facility] Oxygen saturation in 2020-04-29 22:31:00 99 /min University of Arterial blood by [place] [facility] [facility] Pulse oximetry Branch Systolic blood 2018-12-23 08:04:00 111 mm[Hg] Univer sity of pressure [place] [facility] Diastolic blood 2018-12-23 08:04:00 48 mm[Hg] Unive rsity of pressure [place] [facility] Heart rate 2018-12-23 08:04:00 90 /min [facility] Respiratory rate 2018-12-23 08:04:00 16 /min [facility] Oxygen saturation in 2018-12-23 08:04:00 99 /min [facility] Arterial blood by [facility] Pulse oximetry [place] Body temperature 2018-12-23 04:01:00 37.5 Carrie [facility] Body height 2018-12-23 04:01:00 157.5 cm [facility] Body weight 2018-12-23 04:01:00 68.04 kg [facility] BMI 2018-12-23 04:01:00 27.44 kg/m2 [facility] Procedures Procedure Date / Time Performing Clinician Source Performed US OVARY TORSION 2020-05-02 13:59:26 Titi Ruiz [facility] ADC CLC OR LCC ONLY - 2020-05-02 12:32:00 Titi Ruiz [facility] WET PREP [facility] POCT TEST 2020-05-02 10:57:[address] [facility] LIPASE 2020-05-02 10:51:00 Titi Ruiz [facility] COMP. METABOLIC PANEL 2020-05-02 10:51:00 Titi Ruiz [facility] ([id number]) [facility] CBC WITH DIFF 2020-05-02 10:51:00 Titi Ruiz [facility] URINALYSIS 2020-05-02 10:51:00 Titi Ruiz [facility] CONSENT/REFUSAL FOR 2020-05-02 10:17:47 Doctor Unassigned, No Un [facility] DIAGNOSIS AND TREATMENT Name Medical Branch COVID-19 (ID NOW RAPID 2020-04-30 00:48:00 Octavio Murillo [facility] TESTING) [facility] CT ABDOMEN PELVIS W 2020-04-30 00:21:00 Octavio Murillo [facility] CONTRAST [facility] POCT TEST 2020-04-29 23:22:00 Octavio Murillo [facility] LIPASE 2020-04-29 23:21:00 Murillo, [facility] COMP. METABOLIC PANEL 2020-04-29 23:21:00 Octavio Murillo [facility] ([id number]) [facility] CBC WITH DIFF 2020-04-29 23:21:00 Singer [facility] URINALYSIS 2020-04-29 23:21:00 Murillo, [facility] NOTICE OF PRIVACY 2020-04-29 22:30:34 Doctor Unassigned, No [facility] PRACTICES Name Medical Branch CONSENT/REFUSAL FOR 2020-04-29 22:30:13 Doctor Unassigned, No [facility] DIAGNOSIS AND TREATMENT Name [facility] XR ABDOMEN ACUTE SERIES 2018-12-23 07:01:54 Kingsley Murray [facility] POCT TEST 2018-12-23 06:55:00 Kingsley Murray [facility] LIPASE 2018-12-23 06:51:00 Kingsley Murray [facility] COMP. METABOLIC PANEL 2018-12-23 06:51:00 Kingsley Murray [facility] ([id number]) [facility] CBC WITH DIFFERENTIAL 2018-12-23 06:51:00 Kingsley Murray [facility] URINALYSIS 2018-12-23 06:51:00 Kingsley Murray [facility] Encounters Start End Encounter Admission Attending Care Care Encounter Source Date/Time Date/Time Type Type Clinicians Facility Department ID 2021-02-13 Emergency [facility] [id number] Univers 17:42:31 ity [facility] 2021-02-13 Emergency [facility] [id number] Univers [facility]:09[facility] 2020-05-02 2020-05-02 Emergency [facility] [id number] Univers 04:25:00 09:06:00 Titi Barkley [id number] ity [facility] [id number] [facility] [id number] [facility] 084 Branch 2020-04-29 2020-04-29 Emergency Octavio Murillo [facility] [id number]. [id number] Univers 16:38:00 20:14:00 David Durán [id number] ity of [place] 4[place]2.7.2.686 [place] [facility] [id number] [place] [id number] [place] 2020-04-29 2020-04-29 Outpatient R [facility] [id number] Univers 17:00:00 17:00:00 PRASAD [address]o [facility] 2020-04-29 2020-04-29 Nurse Nurse, [facility] [id number] .[id number] Univers 16:22:14 16:22:27 Visit Prasad Rodas [facility] [id number] ity of [place] 4.2.7.2.686 Rai as Professio [phone] [address] Office [address] 2020-04-29 2020-04-29 Outpatient R [facility] [id number] Univers 16:00:00 16:00:[address] [facility] 2020-04-29 2020-04-29 Letter Doctor LEEROY [id number] Univers 00:00:00 00:00:00 (Out) Unassigned, NARINDER [id number] ity of [place] [facility] 4.2.7.2.686 Rai as [phone] [facility] 044 [place] 2020-04-29 2020-04-29 Orders Doctor LEEROY [id number] Univers 00:00:00 00:00:00 Only Unassigned, NARINDER [id number] ity of [place] [facility] 4.2.7.2.686 Rai as [id number] [facility] 009 Branch 2018-12-22 2018-12-23 Emergency [facility] [id number] Univers 22:59:21 03:07:00 Kingsley Barkley [id number] i ty of [place] 4[place]2.7.2.686 [place] [facility] [id number] [address] Results Test Description Test Time Test Comments Results Result Comments Source ADC CLC OR LCC ONLY - WET PREP 2020-05-02 13:00:00 Test Item Value Reference Range Interpretation Comme nts CLUE CELLS WET PREP (test code = 4233923017) None Seen None Seen HPF BACTERIA WET PREP (test code = 3805845366) Few None Seen H PF A WBC WET PREP (test code = 7559613238) Few None Seen HPF A RBC WET PREP (test code = 0325118271) Many None Seen HPF A TRICHOMONAS WET PREP (test code = 9406516640) None Seen None See n HPF YEAST WET PREP (test code = 1860228674) None Seen None Seen HPF Lab Interpretation (test code = 03457-1) [id number]2020-05-02 11:31:00 Test Item Value Reference Range Interpretation Comments NA (test code = 139 mmol/L 135-145 7612534308) K (test code = 3.9 mmol/L 3.5-5 2123909522) CL (test code = 103 mmol/L 98-108 8062041688) CO2 TOTAL (test code = 23 mmol/L 23-31 4555734069) AGAP (test code = 2-16 9490778697) BUN (test code = 9 mg/dL 7-23 7593643242) GLUCOSE (test code = 95 mg/dL 70-110 7835881435) CREATININE (test code = 0.70 mg/dL 0.5-1.04 1158618633) TOTAL BILI (test code = 1.2 mg/dL 0.1-1.1 H 6599544841) CALCIUM (test code = 9.4 mg/dL 8.6-10.6 1694427929) T PROTEIN (test code = 8.7 g/dL 6.3-8.2 H 1799024954) ALBUMIN (test code = 5.1 g/dL 3.5-5 H 7246365736) ALK PHOS (test code = 71 U/L 34-122 9330196750) ALTv (test code = 25 U/L 5-35 1742-6) AST(SGOT) (test code = 35 U/L 13-40 9533766722) eGFR Calculation mL/min/1.73m2 (Non-) (test code = 6889419732) eGFR Calculation mL/min/1.73m2 () (test code = 8740141763) MELLISSA (test code = MELLISSA) Association of [...] tests). Lab Interpretation Abnormal (test code = 29755-4) [facility] 11:30[facility]00 Test Item Value Reference Range Interpretation Comments LIPASE (test code = 0597827281) 50 U/L 0-220 Lab Interpretation (test code = Normal 84925-8) [facility] 11:27:00 Test Item Value Reference Range Interpretation Comments APPEARANCE (test code = Hazy Clear A 7452809492) COLOR (test code = Bee Yellow A 5135829013) PH (test code = 4.8-8.0 2479839499) SP GRAVITY (test code = 1.003-1.030 8824814667) GLU U QUAL (test code = Normal Normal 4711984902) BLOOD (test code = 3+ Negative A 0883916732) KETONES (test code = 20 mg/dL Negative A 6099288588) PROTEIN (test code = 30 mg/dL Negative A 2887-8) UROBILIN (test code = 4.0 mg/dL Normal A 6454295760) BILIRUBIN (test code = Negative Negative 6971950438) NITRITE (test code = Negative Negative 6438849279) LEUK QUYEN (test code = Negative Negative 5589452661) RBC/HPF (test code = See_Comment H [Autom ated message] 6120984576) The system [employer] generated this result transmit galen reference range : 0 - 3 HPF. The refe rence range was not u sed to interpret th is result as normal/abnormal . WBC/HPF (test code = See_Comment H [Autom ated message] 0362632515) The system [employer] generated this result transmit galen reference range : 0 - 5 HPF. The refe rence range was not u sed to interpret th is result as normal/abnormal . BACTERIA (test code = Few Negative A 0674830521) MUCOUS (test code = Marked Negative LPF A 8656770117) SQ EPITH (test code = HPF 9906422058) Lab Interpretation (test Abnormal code = 77867-0) [facility] WITH [id number] 11:07:00 Test Item Value Reference Range Interpretation [...] (test code = 38.1 fL 39-49.9 L 74680-6) RDW-CV (test code = 11.9 % 12-15.5 L 788-0) PLT (test code = See_Comment [Automated 777-3) message] The sy stem which generated this result transmitted reference range : 166 - 358 10*3/ ?L. The reference r aparna was not used to interpret this result as normal/abnormal . MPV (test code = 10.2 fL 9.5-12.9 28137-5) NRBC/100 WBC (test See_Comment [Automat ed code = 4428774399) message] The system which generated this result transmitted reference range : 0.0 - 10.0 /100 WBCs. The refer ence range was not u sed to interpret th is result as normal/abnormal . NRBC x10^3 (test code <0.01 See_Comment [Auto mated = 3758933549) message] The s ystem which generated this result transmitted reference range : 10*3/?L. The reference range was not used to interpret this result as normal/abnormal . GRAN MAT (NEUT) % 43.4 % (test code = 770-8) IMM GRAN % (test code 0.30 % = 5953871331) LYMPH % (test code = 46.6 % 736-9) MONO % (test code = 6.6 % 5905-5) EOS % (test code = 2.2 % 713-8) BASO % (test code = 0.9 % 706-2) GRAN MAT x10^3(ANC) 3.22 10*3/uL 1.88-7.09 (test code = 8680121787) IMM GRAN x10^3 (test <0.03 0-0.06 code = 0764628292) LYMPH x10^3 (test code 3.45 10*3/uL 1.32-3.29 H = 731-0) MONO x10^3 (test code 0.49 10*3/uL 0.33-0.92 = 742-7) EOS x10^3 (test code = 0.16 10*3/uL 0.03-0.39 711-2) BASO x10^3 (test code 0.07 10*3/uL 0.01-0.07 = 704-7) Lab Interpretation Abnormal (test code = 41031-7) [facility] [id number] 10:57:00 Test Item Value Reference Range Interpretation Comments POCT PREG (test code = 1605) neg On board controls acceptable with yes C Line (test code = 3574) POCT PREG LOT # (test code = 3575) [id number] POCT PREG TEST DATE (test 12-15-2021 code = 3576) Lab Interpretation (test code = Normal 04618-4) [facility] ABDOMEN PELVIS W [id number] 01:30:25 1. ?No acute abnormality within the abdomen or pelvis. 2. ?No evidence of bowel obstruction or inflammation. The appendix isnormal. 3. ?Prior cholecystectomy. RL: [id number] End of Report ORDERING PROVIDER: NINA MURILLO [...] or inflammation. The appendix isnormal.3. Prior cholecystectomy.RL: [id number] of Report [facility] (ID NOW RAPID TESTING)2020-04-30 01:17:00 Test Item Value Reference Range Interpretation Comments SARS-CoV-2 Rapid ID NOW Not Detected Not Detected (test code = 05339-2) MELLISSA (test code = MELLISSA) ID NOW COVID-19 Assay is an isothermal nucleic acid amplification test intended for the qualitative detection of nucleic acid from SARS-CoV-2 viral RNA in nasopharyngeal (IT [employer]PORATE [employer]CRU[employer]) specimens. It is used under Emergency Use [...] indicated. Lab Interpretation Normal (test code = 51406-0) [facility] [id number] 00:02:00 Test Item Value Reference Range Interpretation Comments NA (test code = 140 mmol/L 135-145 1767408943) K (test code = 3.5 mmol/L 3.5-5 2440570363) CL (test code = 105 mmol/L 98-108 0332257792) CO2 TOTAL (test code = 24 mmol/L 23-31 5393648128) AGAP (test code = 2-16 0831199536) BUN (test code = 8 mg/dL 7-23 8009362680) GLUCOSE (test code = 87 mg/dL 70-110 5407248313) CREATININE (test code 0.64 mg/dL 0.5-1.04 = 1901855164) TOTAL BILI (test code 1.0 mg/dL 0.1-1.1 = 3627702278) CALCIUM (test code = 9.0 mg/dL 8.6-10.6 1782833159) T PROTEIN (test code = 7.9 g/dL 6.3-8.2 5797353673) ALBUMIN (test code = 4.7 g/dL 3.5-5 2426426766) ALK PHOS (test code = 62 U/L 34-122 0616421640) ALTv (test code = 19 U/L 5-35 1742-6) AST(SGOT) (test code = 39 U/L 13-40 5495454489) eGFR Calculation mL/min/1.73m2 (Non-) (test code = 1338238493) eGFR Calculation mL/min/1.73m2 () (test code = 1526778632) MELLISSA (test code = MELLISSA) Association of [...] or urine or abnormalities in imaging tests). [facility], [id number] 00:02:00 Test Item Value Reference Range Interpretation Comments LIPASE (test code = 0353663463) 30 U/L 0-220 Lab Interpretation (test code = Normal 34260-1) [facility] CenterUrinalysis2021-01-13 23:59:00 Test Item Value Reference Range Interpretation Comments APPEARANCE (test code = Hazy Clear A 7057787521) COLOR (test code = Bee Yellow A 5274715056) PH (test code = 4.8-8.0 3928684691) SP GRAVITY (test code = 1.003-1.030 9183010866) GLU U QUAL (test code = Normal Normal 1852903468) BLOOD (test code = Negative Negative 5162933181) KETONES (test code = 20 mg/dL Negative A 0098435320) PROTEIN (test code = 30 mg/dL Negative A 2887-8) UROBILIN (test code = Normal Normal 8846586432) BILIRUBIN (test code = Negative Negative 4292247517) NITRITE (test code = Negative Negative 2752446766) LEUK QUYEN (test code = Negative Negative 4391126321) RBC/HPF (test code = <1 See_Comment [Autom ated message] 3190957832) The system [employer] generated this result transmitted ref erence range: 0 - 3 HP F. The reference range was not used to int erpret this result as normal/abnormal . WBC/HPF (test code = See_Comment [Autom ated message] 8344085835) The system [employer] generated this result transmitted ref erence range: 0 - 5 HP F. The reference range was not used to int erpret this result as normal/abnormal . BACTERIA (test code = Few Negative A 3357271589) MUCOUS (test code = Marked Negative LPF A 6425734459) SQ EPITH (test code = HPF 1486919535) Lab Interpretation (test Abnormal code = 69326-8) [facility] with [id number] 23:50:00 Test Item Value Reference Range Interpretation Comments WBC (test code = See_Comment [Automated 0990-2) message] The sy stem which generated this result transmitted reference range : 4.30 - 11.10 10*3/?L. The reference range was not used to interpret this result as normal/abnormal . RBC (test code = See_Comment [Automated 609-8) message] The sy stem which generated this [...] RDW-SD (test code = 39.0 fL 39-49.9 26030-8) RDW-CV (test code = 12.1 % 12-15.5 788-0) PLT (test code = See_Comment [Automated 777-3) message] The sy stem which generated this result transmitted reference range : 166 - 358 10*3/ ?L. The reference r aparna was not used to interpret this result as normal/abnormal . MPV (test code = 10.1 fL 9.5-12.9 03509-8) NRBC/100 WBC (test See_Comment [Automat ed code = 8660469917) message] The system which generated this result transmitted reference range : 0.0 - 10.0 /100 WBCs. The refer ence range was not u sed to interpret th is result as normal/abnormal . NRBC x10^3 (test code <0.01 See_Comment [Auto mated = 8252298380) message] The s ystem which generated this result transmitted reference range : 10*3/?L. The reference range was not used to interpret this result as normal/abnormal . GRAN MAT (NEUT) % 44.6 % (test code = 770-8) IMM GRAN % (test code 0.30 % = 1369974629) LYMPH % (test code = 44.7 % 736-9) MONO % (test code = 7.2 % 5905-5) EOS % (test code = 2.3 % 713-8) BASO % (test code = 0.9 % 706-2) GRAN MAT x10^3(ANC) 3.89 10*3/uL 1.88-7.09 (test code = 6449731449) IMM GRAN x10^3 (test 0.03 10*3/uL 0-0.06 code = 4281152450) LYMPH x10^3 (test code 3.90 10*3/uL 1.32-3.29 H = 731-0) MONO x10^3 (test code 0.63 10*3/uL 0.33-0.92 = 742-7) EOS x10^3 (test code = 0.20 10*3/uL 0.03-0.39 711-2) BASO x10^3 (test code 0.08 10*3/uL 0.01-0.07 H = 704-7) Lab Interpretation Abnormal (test code = 21040-2) [facility] [id number] 23:22:00 Test Item Value Reference Range Interpretation Comments POCT PREG (test code = 1605) Negative On board controls acceptable with Present C Line (test code = 3574) POCT PREG LOT # (test code = 3575) [id number] POCT PREG TEST DATE (test 12/15/2021 code = 3576) Lab Interpretation (test code = Normal 29886-2) [facility]2019-09-08 07:28:00 Test Item Value Reference Range Interpretation Comments APPEARANCE (test code = Clear Clear 9036568402) COLOR (test code = Yellow Yellow 5714131773) PH (test code = 4.8-8.0 0507999956) SP GRAVITY (test code = >=1.030 1.003-1.030 4005890906) GLU U QUAL (test code = Negative Negative 1741180166) BLOOD (test code = Negative Negative 4873423250) KETONES (test code = 15 mg/dL Negative A 1163165656) PROTEIN (test code = Trace Negative A 2887-8) UROBILIN (test code = 0.2 mg/dL See_Comment [Auto mated message] 9816144812) The system [employer] generated this result transmit galen reference range : 0-1.0 mg/dL. Th e reference range was not used to interpret this result as normal/abnormal . BILIRUBIN (test code = Small Negative A 7597614003) NITRITE (test code = Negative Negative 8327024536) LEUK QUYEN (test code = Negative Negative 3061123661) RBC/HPF (test code = See_Comment [Autom ated message] 5552952642) The system [employer] generated this result transmit galen reference range : 0 - 3 HPF. The refe rence range was not u sed to interpret th is result as normal/abnormal . WBC/HPF (test code = See_Comment [Autom ated message] 0617844742) The system [employer] generated this result transmit galen reference range : 0 - 5 HPF. The refe rence range was not u sed to interpret th is result as normal/abnormal . BACTERIA (test code = Few Negative A 6522834736) SQ EPITH (test code = HPF 9062427910) Lab Interpretation (test Abnormal code = 88008-5) [facility] (98341[facility]2018-12-23 07:26:00 Test Item Value Reference Range Interpretation Comments NA (test code = 143 mmol/L 135-145 8802563928) K (test code = 4.0 mmol/L 3.5-5 8146031053) CL (test code = 108 mmol/L 98-108 2091512943) CO2 TOTAL (test code = 23 mmol/L 23-31 0243801698) AGAP (test code = 2-16 4641814125) BUN (test code = 7 mg/dL 7-23 2184124690) GLUCOSE (test code = 97 mg/dL 70-110 4870949386) CREATININE (test code 0.75 mg/dL 0.5-1.04 = 4275597104) TOTAL BILI (test code 0.6 mg/dL 0.1-1.1 = 8839784154) CALCIUM (test code = 9.4 mg/dL 8.6-10.6 9456136361) T PROTEIN (test code = 8.0 g/dL 6.3-8.2 9137492080) ALBUMIN (test code = 4.8 g/dL 3.5-5 6166379695) ALK PHOS (test code = 60 U/L 34-122 6947974216) ALT(SGPT) (test code = 27 U/L 9-51 4062045036) AST(SGOT) (test code = 28 U/L 13-40 0359902661) eGFR Calculation mL/min/1.73m2 (Non-) (test code = 2641013053) eGFR Calculation mL/min/1.73m2 () (test code = 0486924835) MELLISSA (test code = MELLISSA) Association of [...] or urine or abnormalities in imaging tests). [facility] Test Item Value Reference Range Interpretation Comments LIPASE (test code = 8287324420) 42 U/L 0-220 Lab Interpretation (test code = Normal 19306-8) [facility] [id number] 07:13:18 Impression: 1. No free air or evidence of bowel obstruction.2. Prior right upper quadrant abdominal surgery. RL: 2824AFC: 80545Aldl: Acute Abdominal Series, 12/22/2018 11:00 PM. Ordering [...] obstruction.2. Prior rightupper quadrant abdominal surgery.RL: 2824AFC: 24731 [facility] WITH [id number] 07:10:00 Test Item Value Reference Range Interpretation Comments WBC (test code = See_Comment [Automated message] 6690-2) The system [employer] generated this result transmitted ref erence range: 4.30 - 1 1.10 10*3/?L. The re ference range was not u sed to interpret this result as normal/abnor mal. RBC (test code = See_Comment [Automated message] 349-8) The system [employer] generated this result transmitted ref erence range: [...] RDW-SD (test code 39.3 fL 39-49.9 = 69034-3) RDW-CV (test code 12.0 % 12-15.5 = 788-0) PLT (test code = See_Comment [Automated message] 337-3) The system [employer] generated this result transmitted ref erence range: 166 - 35 8 10*3/?L. The re ference range was not u sed to interpret this result as normal/abnor mal. MPV (test code = 9.6 fL 9.5-12.9 69381-0) NRBC/100 WBC (test See_Comment [Automat ed message] code = 7799685523) [employer] which generated this result transmitted ref erence range: 0.0 - 10 .0 /100 WBCs. The refer ence range was not u sed to interpret this result as normal/abnor mal. NRBC x10^3 (test <0.01 See_Comment [Automated message] code = 0496457470) The syste m which generated this result transmitted ref erence range: 10*3/?L. The reference range was not used to interpr et this result as normal/abnormal . GRAN MAT (NEUT) % 53.7 % (test code = 770-8) IMM GRAN % (test 0.50 % code = 7762779758) LYMPH % (test code 34.6 % = 736-9) MONO % (test code 8.4 % = 5905-5) EOS % (test code = 2.1 % 713-8) BASO % (test code 0.7 % = 706-2) GRAN MAT 4.54 10*3/uL 1.88-7.09 x10^3(ANC) (test code = 4186025207) IMM GRAN x10^3 0.04 10*3/uL 0-0.06 (test code = 2441628296) LYMPH x10^3 (test 2.93 10*3/uL 1.32-3.29 code = 731-0) MONO x10^3 (test 0.71 10*3/uL 0.33-0.92 code = 742-7) EOS x10^3 (test 0.18 10*3/uL 0.03-0.39 code = 711-2) BASO x10^3 (test 0.06 10*3/uL 0.01-0.07 code = 704-7) [facility] [id number] 06:55:00 Test Item Value Reference Range Interpretation Comments POCT PREG (test code = 1605) Negative On board controls acceptable with Present C Line (test code = 3574) POCT PREG LOT # (test code = HCG [id number] [id number]) POCT PREG TEST DATE (test 04/16/2020 code = 3576) Lab Interpretation (test code = Normal 29190-6) [facility] W/PLT COUNT & AUTO [...] 0.00-0.20 (test code = 417) 0.00HEPATIC FUNCTION [id number] 06:03:00 Test Item Value Reference Range Interpretation [...] 151 U/L 6-55 H 347) BASIC METABOLIC [id number] 06:03:00 Test Item Value Reference Range Interpretation [...] PATIEN TS. CBC W/PLT COUNT & AUTO [id number] 08:15:00 Test Item Value Reference Range Interpretation [...] 0.00-0.20 (test code = 417) 0.00HEPATIC FUNCTION [id number] 06:43:00 Test Item Value Reference Range Interpretation [...] 189 U/L 6-55 H 347) BASIC METABOLIC [id number] 06:43:00 Test Item Value Reference Range Interpretation [...] NOT APPLICABLE FOR DIALYSIS PATIEN TS. SCREEN, [id number] 10:31:00 Test Item Value Reference Range Interpretation Comments TEST URINE (BEAKER) (test Negative code = 583) CBC W/PLT COUNT & AUTO [id number] 06:59:00 Test Item Value Reference Range Interpretation [...] 0.00-0.20 (test code = 417) 0.00HEPATIC FUNCTION [id number] 06:29:00 Test Item Value Reference Range Interpretation [...] 210 U/L 6-55 H 347) BASIC METABOLIC [id number] 06:29:00 Test Item Value Reference Range Interpretation [...] APPLICABLE FOR DIALYSIS PATIEN TS. HEPATIC FUNCTION [id number] 05:02:00 Test Item Value Reference Range Interpretation [...] 250 U/L 6-55 H 347) BASIC METABOLIC [id number] 05:02:00 Test Item Value Reference Range Interpretation [...] PATIEN TS. CBC W/PLT COUNT & AUTO [id number] 04:37:00 Test Item Value Reference Range Interpretation [...] K/ L 0.00-0.20 (test code = 417) 0.00BASI METABOLIC [id number] 07:40:00 Test Item Value Reference Range Interpretation [...] APPLICABLE FOR DIALYSIS PATIEN TS. HEPATIC FUNCTION [id number] 07:40:00 Test Item Value Reference Range Interpretation [...] code = 309 U/L 6-55 H 347) [id number] 07:40:00 Test Item Value Reference Range Interpretation Comments LIPASE (BEAKER) (test code = 749) 8 U/L 8-78 [id number] 07:40:00 Test Item Value Reference Range Interpretation Comments AMYLASE (BEAKER) (test code = 349) 44 U/L 25-125 CBC W/PLT COUNT & AUTO [id number] 06:56:00 Test Item Value Reference Range Interpretation [...] K/ L 0.00-0.20 (test code = 417) 0.00PT/[id number] 06:46:00 Test Item Value Reference Range Interpretation [...]
[2023-01-24 07:42] LABS: Absolute Lymphocytes (CBC) 1.6 K/uL (0.7-4.9); Hematocrit 41.1 % (36.0-45.0); Lymphocytes % 16.7 % (15.3-44.8); MCV 88.9 fL (80-100); MPV 7.8 fL (7.6-11.3); Platelets 255 thou/uL (152-406); RBC Red Blood Cell Count 4.62 M/uL (3.86-4.86)
[2023-01-24 07:59] LABS: Albumin 3.9 g/dL (3.4-5.0); Bilirubin Total 0.5 mg/dL (0.2-1.0); Potassium 3.7 mEq/L (3.5-5.1); Protein, Total 7.4 g/dL (6.4-8.2)
[2023-01-24 08:04] LABS: Specific Gravity 1.023 (1.005-1.030); Urine Bilirubin NEGATIVE (Negative); Urine Blood Negative (Negative); Urine Clarity Clear (Clear); Urine Color Light-Yellow (Yellow); Urine Glucose NEGATIVE (Negative); Urine Protein NEGATIVE (Negative); Urine Urobilinogen Normal (Normal); Urine pH 5.5 (5.0-7.0)
[2023-01-24 08:06] LABS: Specific Gravity 1.023 (1.005-1.030)
--- NOTE | 2023-01-24 08:31 | RAD REPORT ---
EXAM DESCRIPTION: CT - Abdomen Pelvis W Contrast - 01/24/2023 8:14 am CLINICAL HISTORY: Abdominal pain COMPARISON: 2019 TECHNIQUE: Computed axial tomography of the abdomen pelvis was obtained. 100 cc Isovue-300 was admin istered intravenously. Oral contrast was not requested which limits evaluation of bowel and appendix All CT scans are performed using dose optimization technique as appropriate and may include automated exposure control or mA/KV adjustment according to patient size. FINDINGS: 4.5 centimeter mass left lobe liver. It appears enlarged from the prior CT Cholecystectomy. Spleen, pancreas, adrenals and kidneys are unremarkable. No adnexal mass noted. No evidence of diverticulitis IMPRESSION: 4.5 centimeter mass left lobe liver appears enlarged from the prior CT. MRI recommended for further evaluation
--- NOTE | 2023-01-24 09:19 | ER ---
Nurse's Notes [facility] Name: Marcy Flores Age: 27 yrs Sex: Female : 1995 Arrival Date: 01/24/2023 Time: 06:49 Bed 5 Private MD: Diagnosis: Lower abdominal pain, unspecified;Abnormal findings on diagnostic imaging of liver and biliary tract;Blood in stool Presentation: 01/24 07:16 Chief complaint: Patient states: LLQ abdominal pain, blood in urine. Coronavirus jl7 screen: At this time, the client does not indicate any symptoms associated with coronavirus-19. Ebola Screen: No symptoms or risks identified at this time. Initial Sepsis Screen: Does the patient meet any 2 criteria? No. Patient's initial sepsis screen is negative. Does the patient have a suspected source of infection? No. Patient's initial sepsis screen is negative. Risk Assessment: Do you want to hurt yourself or someone else? Patient reports no desire to harm self or others. Onset of symptoms was January 24, 2023. 07:16 Method Of Arrival: Ambulatory [facility] 07:16 Acuity: BIRDIE 3 jl7 Triage Assessment: 07:18 General: Appears in no apparent distress. uncomfortable, Behavior is calm, cooperative, jl7 appropriate for age. Pain: Complains of pain in right lower quadrant and left lower quadrant Pain currently is 5 out of 10 on a pain scale. GI: Abdomen is non-distended, Reports bloody stool. LAST SCOURER: 07:18 LMP 01/24/2023, unknown jl7 Historical: - Allergies: 07:18 Mame-[place]; jl7 07:18 Apple; jl7 07:18 Cinnamon; jl7 - Home Meds: 07:18 None [Active]; jl7 - PMHx: 07:18 GERD; Migraines; Irritable bowel syndrome; jl7 - PSHx: 07:18 Cholecystectomy; Tonsillectomy; jl7 - Immunization history:: Client reports having NOT received the Covid vaccine. - Social history:: Smoking status: Patient denies any tobacco usage or history of. - Family history:: not pertinent. - Hospitalizations: : No recent hospitalization is reported. Screenin:10 [facility] ED Fall Risk Assessment (Adult) History of falling in the last 3 months, rs5 including since admission No falls in past 3 months (0 pts) Confusion or Disorientation No (0 pts) Intoxicated or Sedated No (0 pts) Impaired Gait No (0 pts) Mobility Assist Device Used No (0 pt) Altered Elimination No (0 pt) Score/Fall Risk Level 0 - 2 = Low Risk Oriented to surroundings, Maintained a safe environment. Abuse screen: Denies threats or abuse. Nutritional screening: No deficits noted. Tuberculosis screening: No symptoms or risk factors identified. Assessment: 07:10 General: Appears in no apparent distress. comfortable, Behavior is calm, cooperative. rs5 07:10 Pain: Complains of pain in lower abdominal pain bilat Pain does not radiate. Pain rs5 currently is 6 out of 10 on a pain scale. Quality of pain is described as aching, crampy, Pain began 2 hours ago. Is continuous. Neuro: Level of Consciousness is awake, alert, obeys commands, Oriented to person, place, time, situation. Cardiovascular: Heart tones S1 S2 Rhythm is regular. Respiratory: Airway is patent Respiratory effort is even, unlabored, Respiratory pattern is regular, symmetrical, Breath sounds are clear bilaterally. GI: Bowel sounds present X 4 quads. Abd is soft and non tender X 4 quads. Reports bloody stool, Patient currently denies nausea, vomiting. GI: Reports since this morning. : No signs and/or symptoms were reported regarding the genitourinary system. : Reports "I just got off my menstrual cycle this month 2 days ago, it was normal". EENT: No signs and/or symptoms were reported regarding the EENT system. Derm: Skin is pink, warm \\T\\ dry. Musculoskeletal: Range of motion: intact in all extremities. 08:05 Reassessment: Patient and/or family updated on plan of care and expected duration. Pain rs5 level reassessed. Patient is alert, oriented x 3, equal unlabored respirations, skin warm/dry/pink. [place] provided per pt request. 08:45 Reassessment: Pt reports nausea, provider notified. rs5 09:10 Reassessment: Patient and/or family updated on plan of care and expected duration. Pain rs5 level reassessed. Patient is alert, oriented x 3, equal unlabored respirations, skin warm/dry/pink. Vital Signs: 07:16 BP 150 / 87; Pulse 81; Resp 17; Temp 97.7; Pulse Ox 95% ; Weight 72.57 kg; Height 5 ft. jl7 2 in. ; Pain 5/10; 08:15 BP 123 / 67; Pulse 84; Pulse Ox 98% on R/A; rs5 09:12 BP 129 / 99; Pulse 81; Resp 17; Pulse Ox 99% on R/A; rs5 07:16 Body Mass Index 29.26 (72.57 kg, 157.48 cm) jl7 07:16 Pain Scale: Adult jl7 ED Course: 06:55 Patient arrived in ED. ag3 07:02 Compa Mart MD is Attending Physician. rn 07:10 Patient has correct armband on for positive identification. Bed in low position. Call rs5 light in reach. Side rails up X2. 07:12 Kaden Russell, ROSMERY is Primary Nurse. rs5 07:18 Triage completed. jl7 07:18 Arm band placed on right wrist. jl7 07:23 Inserted saline lock: 22 gauge in right antecubital area, using aseptic technique. ds4 Blood collected. 08:16 CT Abd/Pelvis - IV Contrast Only In Process Unspecified. EDMS 09:14 No provider procedures requiring assistance completed. rs5 09:17 Bar Dalton MD is Referral Physician. rn 09:30 IV discontinued, intact, bleeding controlled, No redness/swelling at site. Pressure rs5 dressing applied. Administered Medications: No medications were administered Medication: 09:13 VIS not applicable for this client. rs5 Outcome: 09:18 Discharge ordered by . rn 09:30 Discharged to home ambulatory, rs5 09:30 Condition: stable 09:30 Discharge instructions given to patient, Instructed on discharge instructions, follow up and referral plans. medication usage, Demonstrated understanding of instructions, follow-up care, medications, Prescriptions given X 1, 09:31 Patient left the ED. aa5 Signatures: Dispatcher [employer] EDMS Compa Mart MD MD rn Calderon, Audri RN RN aa5 Nigel Esparza ds4 Jazlyn Trinidad RN RN jl7 Laura Barclay RN RN ap3 Jelena Mcarthur ag3 Kaden Russell, ROSMERY RN rs5 Corrections: (The following items were deleted from the chart) 08:19 08:15 Pulse 84bpm; Pulse Ox 98%; ap3 rs5 09:12 08:14 BP 123 / 67; ap3 rs5 09:12 08:15 Pulse 84bpm; Pulse Ox 98% RA; rs5 rs5
--- NOTE | 2023-01-24 09:19 | EDPHYS ---
Physician Documentation [facility] Name: Marcy Flores Age: 27 yrs Sex: Female : 1995 Arrival Date: 01/24/2023 Time: 06:49 Bed 5 Private MD: ED Physician Compa Mart HPI: 01/24 07:50 This 27 yrs old Female presents to ER via Ambulatory with complaints of Abdominal Pain, rn Bloody Stools. 07:50 The patient presents with abdominal pain in the lower abdomen. Onset: The rn symptoms/episode began/occurred last night. The symptoms do not radiate. Associated signs and symptoms: Pertinent positives: blood in stools, Pertinent negatives: fever, hematuria, shortness of breath. Modifying factors: The symptoms are alleviated by nothing, the symptoms are aggravated by movement, pressure. Severity of pain: At its worst the pain was mild in the emergency department the pain is unchanged. The patient has experienced similar episodes in the past. The patient has not recently seen a physician. Patient reports lower abdominal pain that began last night. Reports chronic abdominal pain with a history of irritable bowel syndrome. This morning had 3 bowel movements with small flecks of blood mixed in. No black stool. Denies shortness of breath. Does not take blood thinners.. 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 - Social history:: Smoking status: Patient denies any tobacco usage or history of. - Family history:: not pertinent. - Hospitalizations: : No recent hospitalization is reported. ROS: 07:50 Constitutional: Negative for fever, chills, and weight loss, Cardiovascular: Negative rn for chest pain, palpitations, and edema, Respiratory: Negative for shortness of breath, cough, wheezing, and pleuritic chest pain, Abdomen/GI: Positive for abdominal pain and blood in stool MS/Extremity: Negative for injury and deformity, Skin: Negative for injury, rash, and discoloration, Neuro: Negative for headache, weakness, numbness, tingling, and seizure, Exam: 07:50 Constitutional: This is a well developed, well nourished patient who is awake, alert, rn and in no acute distress. Ambulatory to room without assistance or difficulty Head/Face: Normocephalic, atraumatic. Cardiovascular: Regular rate and rhythm. No pulse deficits. Respiratory: No increased work of breathing, no retractions or nasal flaring. Abdomen/GI: Soft, mild left lower quadrant tenderness, no rebound Neuro: Awake and alert, GCS 15 Vital Signs: 07:16 BP 150 / 87; Pulse 81; Resp 17; Temp 97.7; Pulse Ox 95% ; Weight 72.57 kg; Height 5 ft. jl7 2 in. ; Pain 5/10; 08:15 BP 123 / 67; Pulse 84; Pulse Ox 98% on R/A; rs5 09:12 BP 129 / 99; Pulse 81; Resp 17; Pulse Ox 99% on R/A; rs5 07:16 Body Mass Index 29.26 (72.57 kg, 157.48 cm) jl7 07:16 Pain Scale: Adult jl7 MDM: 07:02 Patient medically screened. rn 09:16 Differential diagnosis: appendicitis, bowel obstruction, cholecystitis, Cholelithiasis, rn diverticulitis, Endometriosis, gastritis, non-specific abd pain, pancreatitis, Peptic Ulcer Disease, Ureterolithiasis, urinary tract infection. Differential diagnosis: Inflammatory bowel disease, diverticulitis, colitis, enteritis. Data reviewed: vital signs, nurses notes. Counseling: I had a detailed discussion with the patient and/or guardian regarding the historical points, exam findings, and any diagnostic results supporting the discharge/admit diagnosis, lab results, radiology results, the need for outpatient follow up, to return to the emergency department if symptoms worsen or persist or if there are any questions or concerns that arise at home. Special discussion: Based on the patient's Hx, exam, and Dx evaluation, there is no indication for emergent surgery or inpatient Tx. It is understood by the patient/guardian that if the Sx's persist or worsen they need to return immediately for re-evaluation. I discussed with the patient/guardian in detail that at this point there is no indication for admission to the hospital. It is understood, however, that if the symptoms persist or worsen the patient needs to return immediately for re-evaluation. Based on the history and exam findings, there is no indication for further emergent testing or inpatient evaluation. I discussed with the patient/guardian the need to see the unarmed security guard for further evaluation of the symptoms. ED course: I have personally reviewed all of the results, including but not limited to blood tests and imaging deemed necessary to safely discharge this patient at this time. All results given to and printed out for patient. I personally went over all the results with the patient and answered all questions. Spoke to her about known liver mass and growth, needs to follow-up with GI in monitor to rule out malignancy. Patient will follow-up with PCP and or specialist as discussed. Return precautions given and understood.. 01/24 07:11 Order name: CBC with Diff; Complete Time: 08:07 rn 01/24 07:11 Order name: CMP; Complete Time: 08: rn 01/24 07:11 Order name: Lipase; Complete Time: 08: rn 01/24 07:11 Order name: Test, Urine; Complete Time: 08:07 rn 01/24 07:11 Order name: Urinalysis w/ reflexes; Complete Time: 08: rn 01/24 07:11 Order name: CT Abd/Pelvis - IV Contrast Only; Complete Time: 08:40 rn 01/24 07:11 Order name: IV Saline Lock; Complete Time: 07:23 rn 01/24 07:11 Order name: Labs collected and sent; Complete Time: 07:23 rn Administered Medications: No medications were administered Disposition Summary: 01/24/23 09:18 Discharge Ordered Notes: Location: Home rn Problem: new rn Symptoms: have improved rn Condition: Stable rn Diagnosis - Lower abdominal pain, unspecified rn - Abnormal findings on diagnostic imaging of liver and biliary tract rn - Blood in stool rn Followup: rn - With: Bar Dalton MD - When: As needed - Reason: Recheck today's complaints, Re-evaluation by your physician Discharge Instructions: - Discharge Summary Sheet rn - Abdominal Pain, Adult rn - Rectal Bleeding rn Forms: - Medication Reconciliation Form rn - Thank You Letter rn - 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
[2023-01-24 09:41] VITALS: TEMP 97.7
[2023-01-24 10:02] VITALS: BP 129/99; O2SAT 99
== END 2023-01-24 09:31 | disposition home or self-care (01) ==
LOC: ER 06:49
DX: R10.32 Left lower quadrant pain (principal); R93.2 Abnormal findings on diagnostic imaging of liver and biliary tract; K92.1 Melena
CPT/HCPCS: 36415; 74177; 80053; 81003; 81025; 83690; 85025; Q9967

== ENCOUNTER → 2023-05-16 | Emergency (ER) | payer OTHER, SELFPAY ==
[2023-05-16 08:24] LABS: Absolute Lymphocytes (CBC) 1.6 K/uL (0.7-4.9); Hematocrit 42.7 % (36.0-45.0); Lymphocytes % 17.6 % (15.3-44.8); MCV 88.9 fL (80-100); MPV 8.1 fL (7.6-11.3); Platelets 251 thou/uL (152-406); RBC Red Blood Cell Count 4.81 M/uL (3.86-4.86)
[2023-05-16 08:25] LABS: Specific Gravity 1.018 (1.005-1.030)
[2023-05-16 08:29] LABS: Specific Gravity 1.018 (1.005-1.030); Urine Bacteria None Seen /HPF (<20); Urine Bilirubin NEGATIVE (Negative); Urine Blood 3+ (Negative); Urine Clarity Extremely Turbid (Clear); Urine Color Light-Yellow (Yellow); Urine Glucose NEGATIVE (Negative); Urine Mucus Slight /HPF (None Seen); Urine Protein NEGATIVE (Negative); Urine RBC <5 /HPF (None Seen); Urine Urobilinogen Normal (Normal); Urine pH 5.5 (5.0-7.0)
[2023-05-16 08:49] LABS: BUN Blood Urea Nitrogen 10 mg/dL (7-18); Bicarbonate 23 mEq/L (21-32); Glomerular Filtration Rate 113 ml/min (=/>90); Glucose Level 100 mg/dL (74-106); Potassium 3.7 mEq/L (3.5-5.1); Sodium Level 140 mEq/L (136-145)
[2023-05-16 08:50] LABS: HCG, Quantitative < 1 mIU/mL (1-3)
--- NOTE | 2023-05-16 09:09 | ER ---
Nurse's Notes [facility] Name: Marcy Dallas Age: 27 yrs Sex: Female : 1995 Arrival Date: 05/16/2023 Time: 07:10 Bed Treatment Private MD: Diagnosis: Vaginal bleeding Presentation: 05/16 07:45 Chief complaint: Patient states: 2 positive test, LMP 04/19/23, started jl7 bleeding this morning, cramping. Coronavirus screen: At this time, the client does not indicate any symptoms associated with coronavirus-19. Ebola Screen: No symptoms or risks identified at this time. Initial Sepsis Screen: Does the patient meet any 2 criteria? No. Patient's initial sepsis screen is negative. Does the patient have a suspected source of infection? No. Patient's initial sepsis screen is negative. Risk Assessment: Do you want to hurt yourself or someone else? Patient reports no desire to harm self or others. Onset of symptoms was May 16, 2023. 07:45 Method Of Arrival: Ambulatory [facility] 07:45 Acuity: BIRDIE 3 jl7 Triage Assessment: 07:46 General: Appears in no apparent distress. uncomfortable, Behavior is calm, cooperative, jl7 appropriate for age. Pain: Complains of pain in suprapubic area Pain currently is 7 out of 10 on a pain scale. Neuro: No deficits noted. Cardiovascular: No deficits noted. Respiratory: No deficits noted. GI: No signs and/or symptoms were reported involving the gastrointestinal system. : Reports vaginal bleeding that is. Derm: Skin is pink, warm \T\ dry. BAILIFF: 07:46 LMP 04/19/2023, unknown jl7 Historical: - Allergies: 07:46 Mame-Organ; jl7 07:46 Apple; jl7 07:46 Cinnamon; jl7 - PMHx: 07:46 GERD; Irritable bowel syndrome; Migraines; jl7 - PSHx: 07:46 Cholecystectomy; Tonsillectomy; jl7 - Immunization history:: Adult Immunizations unknown. - Social history:: Smoking status: unknown. Screenin:48 [facility] ED Fall Risk Assessment (Adult) History of falling in the last 3 months, jl7 including since admission No falls in past 3 months (0 pts) Score/Fall Risk Level 0 - 2 = Low Risk Oriented to surroundings, Maintained a safe environment. Abuse screen: Denies threats or abuse. Denies injuries from another. Nutritional screening: No deficits noted. Tuberculosis screening: No symptoms or risk factors identified. Assessment: 07:48 Reassessment: Dr. Sanchez assessing pt in triage. jl7 09:21 Reassessment: Dr. Sanchez at bedside discussing results and POC. jl7 Vital Signs: 07:45 BP 133 / 73; Pulse 86; Resp 17; Temp 98.2; Pulse Ox 100% ; Weight 68.95 kg; Height 5 jl7 ft. 3 in. ; Pain 7/10; 09:21 BP 129 / 80; Pulse 57; Resp 17; Pulse Ox 100% ; jl7 07:45 Body Mass Index 26.93 (68.95 kg, 160.02 cm) jl7 07:45 Pain Scale: Adult jl7 ED Course: 07:14 Patient arrived in ED. mg5 07:39 Dillon Sanchez MD is Attending Physician. rt 07:46 Triage completed. jl7 07:46 Arm band placed on right wrist. jl7 07:48 Patient has correct armband on for positive identification. Provided Education on: jl7 tests and POC. 08:14 Initial lab(s) drawn, by me, sent to lab. Urine collected: clean catch specimen, clear. jl7 Inserted saline lock: 20 gauge in left antecubital area, using aseptic technique. Blood collected. 09:22 No provider procedures requiring assistance completed. IV discontinued, intact, jl7 bleeding controlled, No redness/swelling at site. Pressure dressing applied. Administered Medications: No medications were administered Medication: 09:22 VIS not applicable for this client. jl7 Outcome: 09:08 Discharge ordered by . rt 09:22 Discharged to home ambulatory, jl7 09:22 Condition: stable 09:22 Discharge instructions given to patient, family, Instructed on discharge instructions, follow up and referral plans. Demonstrated understanding of instructions, follow-up care, 09:23 Patient left the ED. jl7 Signatures: Jazlyn Trinidad RN RN jl7 Dillon Sanchez MD MD rt [facility] mg5
--- NOTE | 2023-05-16 09:09 | EDPHYS ---
Physician Documentation [facility] Name: Marcy Dallas Age: 27 yrs Sex: Female : 1995 Arrival Date: 05/16/2023 Time: 07:10 Bed Treatment Private MD: ED Physician Dillon aSnchez HPI: 05/16 10:32 This 27 yrs old Female presents to ER via Ambulatory with complaints of + Prg Test, rt Vaginal Bleeding, Abdominal Cramping. 10:32 Patient presents to the ED with vaginal bleeding. Patient states that about 1 to 2 rt weeks ago, she had 2 positive test. LMP was about 4 weeks ago. States that she has cramping consistent with her period, vaginal bleeding similar in character to a period. Denies other acute complaints at this time, symptoms are mild in severity, no other aggravating or alleviating factors.. 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 - Social history:: Smoking status: unknown. ROS: 10:32 Constitutional: Negative for fever, chills, and weight loss, Cardiovascular: Negative rt for chest pain, palpitations, and edema, Respiratory: Negative for shortness of breath, cough, wheezing, and pleuritic chest pain, Abdomen/GI: Negative for abdominal pain, nausea, vomiting, diarrhea, and constipation, MS/Extremity: Negative for injury and deformity, Skin: Negative for injury, rash, and discoloration, Neuro: Negative for headache, weakness, numbness, tingling, and seizure, Psych: Negative for depression, anxiety, suicide ideation, homicidal ideation, and hallucinations, 10:32 : Positive for vaginal bleeding, Negative for burning with urination, Exam: 10:32 Constitutional: This is a well developed, well nourished patient who is awake, alert, rt and in no acute distress. Chest/axilla: Normal chest wall appearance and motion. Nontender with no deformity. No lesions are appreciated. Cardiovascular: Regular rate and rhythm with a normal S1 and S2. No gallops, murmurs, or rubs. Normal PMI, no JVD. No pulse deficits. Respiratory: Lungs have equal breath sounds bilaterally, clear to auscultation and percussion. No rales, rhonchi or wheezes noted. No increased work of breathing, no retractions or nasal flaring. Abdomen/GI: Soft, non-tender, with normal bowel sounds. No distension or tympany. No guarding or rebound. No evidence of tenderness throughout. Skin: Warm, dry with normal turgor. Normal color with no rashes, no lesions, and no evidence of cellulitis. MS/ Extremity: Pulses equal, no cyanosis. Neurovascular intact. Full, normal range of motion. Neuro: Awake and alert, GCS 15, oriented to person, place, time, and situation. Cranial nerves II-XII grossly intact. Motor strength 5/5 in all extremities. Sensory grossly intact. Cerebellar exam normal. Normal gait. Psych: Awake, alert, with orientation to person, place and time. Behavior, mood, and affect are within normal limits. Vital Signs: 07:45 BP 133 / 73; Pulse 86; Resp 17; Temp 98.2; Pulse Ox 100% ; Weight 68.95 kg; Height 5 jl7 ft. 3 in. ; Pain 7/10; 09:21 BP 129 / 80; Pulse 57; Resp 17; Pulse Ox 100% ; jl7 07:45 Body Mass Index 26.93 (68.95 kg, 160.02 cm) jl7 07:45 Pain Scale: Adult jl7 MDM: 07:39 Patient medically screened. rt 10:35 Differential diagnosis: Missed AB, menstruation, ectopic , threatened AB. Data rt reviewed: vital signs, nurses notes, lab test result(s). Test considered but Not performed: Ultrasound Quantitative hCG is 0, essentially normal test, suspect that the patient is currently menstruating. Ultrasound is not indicated to rule out ectopic .. Counseling: I had a detailed discussion with the patient and/or guardian regarding the historical points, exam findings, and any diagnostic results supporting the discharge/admit diagnosis, lab results, the need for outpatient follow up. 05/16 07:51 Order name: Abo/rh Typing; Complete Time: 08:58 rt 05/16 07:51 Order name: Basic Metabolic Panel; Complete Time: 08:58 rt 05/16 07:51 Order name: CBC with Diff; Complete Time: 08:58 rt 05/16 07:51 Order name: Test, Urine; Complete Time: 08:58 rt 05/16 07:51 Order name: Quantitative Hcg; Complete Time: 08:58 rt 05/16 07:51 Order name: Urinalysis w/ reflexes; Complete Time: 08:58 rt 05/16 07:51 Order name: IV Saline Lock; Complete Time: 08:14 rt 05/16 07:51 Order name: Labs collected and sent; Complete Time: 08:14 rt 05/16 07:51 Order name: NPO; Complete Time: 08:14 rt Administered Medications: No medications were administered Disposition Summary: 05/16/23 09:08 Discharge Ordered Notes: Location: Home rt Problem: new rt Symptoms: are unchanged rt Condition: Stable rt Diagnosis - Vaginal bleeding rt Followup: rt - With: Private Physician - When: 2 - 3 days - Reason: Discharge Instructions: - Discharge Summary Sheet rt - Menstruation rt Forms: - Work release form jl7 - Medication Reconciliation Form rt - Thank You Letter rt - Antibiotic Education rt - Prescription Opioid Use rt - Patient Portal Instructions rt - Leadership Thank You Letter rt Signatures: Dispatcher [employer] Jazlyn Cole RN RN jl7 Dillon Sanchez MD MD rt
[2023-05-16 14:06] VITALS: TEMP 98.2; O2SAT 100
[2023-05-16 14:26] VITALS: BP 129/80
== END ==
LOC: ER 07:10
DX: N93.9 Abnormal uterine and vaginal bleeding, unspecified (principal); Z88.8 Allergy status to other drugs, medicaments and biological substances; Z91.018 Allergy to other foods
CPT/HCPCS: 36415; 80048; 81001; 81025; 84702; 85025; 86900; 86901

== ENCOUNTER 2023-12-24 05:50 | Emergency (ER) | payer OTHER ==
--- NOTE | 2023-12-24 06:23 | ER ---
Nurse's Notes [facility] Name: Marcy Dallas Age: 28 yrs Sex: Female : 1995 Arrival Date: 12/24/2023 Time: 05:50 Bed 1 Private MD: Diagnosis: Fall on same level, unspecified;Encounter for supervision of other normal , third trimester;Decreased movements, third trimester Presentation: 12/23 06:02 Chief complaint: Patient states: I fell around 0030 and I am concerned because I am 31 jb4 weeks and the baby has not been moving as much and I have lower abdominal pain. Coronavirus screen: At this time, the client does not indicate any symptoms associated with coronavirus-19. Ebola Screen: No symptoms or risks identified at this time. Initial Sepsis Screen: Does the patient meet any 2 criteria? No. Patient's initial sepsis screen is negative. Does the patient have a suspected source of infection? No. Patient's initial sepsis screen is negative. Risk Assessment: Do you want to hurt yourself or someone else? Patient reports no desire to harm self or others. Onset of symptoms was December 24, 2023. Transition of care: patient was not received from another setting of care. 06:02 Method Of Arrival: Ambulatory jb4 06:02 Acuity: BIRDIE 2 jb4 06:22 Care prior to arrival: None. Mechanism of Injury: Fall. Mechanism of Injury: Fall from al5 standing position. Trauma event details: Injury occurred in the [facility], Injury occurred: at home. Injury occurred: December 24, 2023. 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 - Infectious Disease History:: Denies. - Immunization history: Last tetanus immunization: - up to date. - Social history:: Smoking status: Patient denies any tobacco usage or history of. - Family history:: not pertinent. - Hospitalizations: : No recent hospitalization is reported. Screenin:[facility] Risk Assessment (Adult) History of falling in the last 3 months, jj7 including since admission Yes- single mechanical fall (1 pt) Confusion or Disorientation No (0 pts) Intoxicated or Sedated No (0 pts) Impaired Gait No (0 pts) Mobility Assist Device Used No (0 pt) Altered Elimination No (0 pt) Score/Fall Risk Level 0 - 2 = Low Risk Oriented to surroundings, Maintained a safe environment, Educated pt \T\ family on fall prevention, incl call for assistance when getting out of bed, Assessed \T\ reinforced patient's understanding of fall precautions. Abuse screen: Denies threats or abuse. Nutritional screening: No deficits noted. Tuberculosis screening: No symptoms or risk factors identified. Primary Survey: 06:20 NO uncontrolled hemorrhage observed. A: The client is awake and alert. The airway is al5 patent. The client is alert. A: Airway: patent. Breathing/Chest: Spontaneous respiratory effort, equal unlabored respirations, breath sounds clear bilaterally, regular pattern, symmetrical chest rise and fall. Respiratory effort: spontaneous, Respiratory pattern: regular. Circulation: No external hemorrhage present. Regular and strong central pulse, skin warm/dry/normal color. Skin color: pink, Skin temperature: warm, dry. Disability Pupils are equal, round, reactive to light and accommodation. Client is alert. Exposure/Environment: A warming method has been applied: A warm blanket has been provided to the patient. 06:28 Reassessment Alertness and Airway: Awake and alert. The airway is patent. Airway Patent al5 Breathing: Spontaneous respiratory effort, equal unlabored respirations, breath sounds clear bilaterally, regular pattern with symmetrical chest rise and fall. Respiratory effort Spontaneous Respiratory pattern Regular Circulation: No external hemorrhage noted. Regular and strong central pulse, skin warm/dry/normal color. Color [place] Temperature Warm Dry. Assessment: 06:04 General: Appears in no apparent distress. comfortable, Behavior is calm, cooperative, jj7 appropriate for age. Pain: Complains of pain in abdomen. GI: Reports cramping, Patient currently denies nausea, vomiting. Vital Signs: 06:02 Resp 16; Weight 81.19 kg; Height 5 ft. 3 in. ; Pain 4/10; jb4 06:19 BP 117 / 63; Pulse 81; Resp 16; Temp 97.8; Pulse Ox 99% on R/A; Weight 81.19 kg; Height al5 5 ft. 3 in. ; 06:19 Body Mass Index 31.71 (81.19 kg, 160.02 cm) al5 06:02 Pain Scale: Adult jb4 [place] Coma Score: 06:21 Eye Response: spontaneous(4). Motor Response: obeys commands(6). Verbal Response: al5 oriented(5). Total: 15. Trauma Score (Adult): 06:21 Eye Response: spontaneous(1); Verbal Response: oriented(1); Motor Response: obeys al5 commands(2); Systolic BP: > 89 mm Hg(4); Respiratory Rate: 10 to 29 per min(4); [place] Score: 15; Trauma Score: 12 ED Course: 05:55 Patient arrived in ED. jj6 06:03 Compa Mart MD is Attending Physician. rn 06:04 Triage completed. jb4 06:04 Korin Tai RN is Primary Nurse. jj7 06:04 Arm band placed on right wrist. jb4 06:04 Patient has correct armband on for positive identification. Placed in gown. Bed in low jj7 position. Call light in reach. Adult w/ patient. Provided Education on: USE OF CALL BROWNLEE. 06:22 Assisted provider with: ultrasound. HR 162. al5 06:23 Patient did not have IV access during this emergency room visit. al5 06:23 Patient maintains SpO2 saturation greater than 95% on room air. al5 06:23 Thermoregulation: warm blanket given to patient. al5 Administered Medications: No medications were administered Medication: 06:04 VIS not applicable for this client. jj7 Outcome: 06:23 Discharge ordered by . rn 06:28 Patient's length of stay was not longer than 2 hours. al5 06:29 Discharged to home ambulatory, with significant other, al5 06:29 Condition: good 06:29 Discharge instructions given to patient, significant other, Instructed on discharge instructions, follow up and referral plans. Demonstrated understanding of instructions, follow-up care, 06:29 Patient left the ED. al5 Signatures: Compa Mart MD MD rn Bryson, James, RN RN jb4 Deedee Gupta jj6 Korin Tai RN RN jj7 Langhorst, Laura, RN RN al5
--- NOTE | 2023-12-24 06:23 | EDPHYS ---
Physician Documentation [facility] Name: Marcy Dallas Age: 28 yrs Sex: Female : 1995 Arrival Date: 12/24/2023 Time: 05:50 Bed 1 Private MD: ED Physician Compa Mart HPI: 12/23 06:19 This 28 yrs old Female presents to ER via Ambulatory with complaints of 31 WKS rn GESTATION, Fall Injury, Pelvic Pain. 06:19 Details of fall: The patient fell from an upright position. Onset: The symptoms/episode rn began/occurred 6 hour(s) ago. Associated injuries: The patient sustained Buttocks. Severity of symptoms: At their worst the symptoms were very mild, in the emergency department the symptoms are unchanged. The patient has not experienced similar symptoms in the past. Patient reports approximately 31 weeks . Missed the last step on stairs, grabbed the railing and cane and swelling around landing on her buttocks. Reports a very mild soreness to her buttocks. No direct trauma to the abdomen. No vaginal bleeding. Reports mild cramps. Initially did not feel baby move but on her way here started to feel baby move. Does not feel like she broke anything. No extremity injury. No head injury.. 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 - Infectious Disease History:: Denies. - Immunization history: Last tetanus immunization: - up to date. - Social history:: Smoking status: Patient denies any tobacco usage or history of. - Family history:: not pertinent. - Hospitalizations: : No recent hospitalization is reported. ROS: 06:19 Constitutional: Negative for fever, chills, and weight loss, Neck: Negative for injury, rn pain, and swelling, Cardiovascular: Negative for chest pain, palpitations, and edema, Respiratory: Negative for shortness of breath, cough, wheezing, and pleuritic chest pain, Abdomen/GI: Negative for abdominal pain, nausea, vomiting, diarrhea, and constipation, Back: Negative for injury and pain, : Negative for injury, bleeding, discharge, and swelling, Neuro: Negative for headache, weakness, numbness, tingling, and seizure, Exam: 06:19 Constitutional: This is a well developed, well nourished patient who is awake, alert, rn and in no acute distress. Cardiovascular: Regular rate and rhythm. No pulse deficits. Abdomen/GI: Soft, gravid uterus. No guarding or peritoneal signs. MS/ Extremity: Pulses equal, no cyanosis. Neurovascular intact. Full, normal range of motion. Equal circumference. Vital Signs: 06:02 Resp 16; Weight 81.19 kg; Height 5 ft. 3 in. ; Pain 4/10; jb4 06:19 BP 117 / 63; Pulse 81; Resp 16; Temp 97.8; Pulse Ox 99% on R/A; Weight 81.19 kg; Height al5 5 ft. 3 in. ; 06:19 Body Mass Index 31.71 (81.19 kg, 160.02 cm) al5 06:02 Pain Scale: Adult jb4 [place] Coma Score: 06:21 Eye Response: spontaneous(4). Motor Response: obeys commands(6). Verbal Response: al5 oriented(5). Total: 15. Trauma Score (Adult): 06:21 Eye Response: spontaneous(1); Verbal Response: oriented(1); Motor Response: obeys al5 commands(2); Systolic BP: > 89 mm Hg(4); Respiratory Rate: 10 to 29 per min(4); Phong Score: 15; Trauma Score: 12 Procedures: 06:19 Ultrasound: Type: Fast exam, OB, performed by the emergency department physician, OB rn ultrasound performed by Dr. Mart, good movement, good fluid volume, anterior placenta, head down, heart tones 162 bpm. All images show to mother and father. FAST exam performed by Dr. Mart, no free fluid noted.. MDM: 06:03 Patient medically screened. rn 06:19 Differential diagnosis: contusion. Data reviewed: vital signs, nurses notes, radiologic rn studies, ultrasound, and as a result, I will discharge patient. Counseling: I had a detailed discussion with the patient and/or guardian regarding the historical points, exam findings, and any diagnostic results supporting the discharge/admit diagnosis, the need for outpatient follow up, to return to the emergency department if symptoms worsen or persist or if there are any questions or concerns that arise at home. Special discussion: I discussed with the patient/guardian in detail that at this point there is no indication for admission to the hospital. It is understood, however, that if the symptoms persist or worsen the patient needs to return immediately for re-evaluation. Administered Medications: No medications were administered Disposition Summary: 12/24/23 06:23 Discharge Ordered Notes: Location: Home rn Problem: new rn Symptoms: have improved rn Condition: Stable rn Diagnosis - Fall on same level, unspecified rn - Encounter for supervision of other normal , third trimester rn - Decreased movements, third trimester rn Followup: rn - With: Private Physician - When: As needed - Reason: Recheck today's complaints, Re-evaluation by your physician Discharge Instructions: - Discharge Summary Sheet rn - Third Trimester of rn Forms: - Medication Reconciliation Form rn - Antibiotic pattern painter - Prescription Opioid Use rn - Patient Portal Instructions rn - Leadership Thank You Letter rn Signatures: Compa Mart MD MD rn Bryson, James RN RN jb4 Laura Gutierrez RN RN al5
[2023-12-24 06:34] VITALS: BP 117/63; TEMP 97.8; O2SAT 99
== END 2023-12-24 06:29 | disposition home or self-care (01) ==
LOC: ER 05:50
DX: O26.893 Other specified pregnancy related conditions, third trimester (principal); O36.8130 Decreased fetal movements, third trimester, not applicable or unspecified; W18.30XA Fall on same level, unspecified, initial encounter; Y93.9 Activity, unspecified; Y92.9 Unspecified place or not applicable; Z3A.30 30 weeks gestation of pregnancy
CPT/HCPCS: 99282